=== PATIENT | male | born 1965 | race Two or more races ===

== ENCOUNTER → 2024-03-25 | Outpatient (BNVA) | payer MEDICARE, MEDICAID, SELFPAY | END | disposition home or self-care (01) | PROVIDERS: PCP Family Medicine; Referring Provider Family Medicine; Visit Provider Urology | DX: N40.1 Benign prostatic hyperplasia with lower urinary tract symptoms (principal); N13.8 Other obstructive and reflux uropathy; Z80.42 Family history of malignant neoplasm of prostate; R97.20 Elevated prostate specific antigen [PSA]; N40.2 Nodular prostate without lower urinary tract symptoms; E11.9 Type 2 diabetes mellitus without complications; I10 Essential (primary) hypertension; E66.9 Obesity, unspecified; Z68.31 Body mass index [BMI] 31.0-31.9, adult; E78.00 Pure hypercholesterolemia, unspecified; K21.9 Gastro-esophageal reflux disease without esophagitis | CPT/HCPCS: 81003; 87086; 99212; G0463 ==

== ENCOUNTER → 2024-04-12 | Outpatient (BNVA) | payer MEDICARE, MEDICAID, SELFPAY | END | disposition home or self-care (01) | PROVIDERS: PCP Family Medicine; Referring Provider Family Medicine; Visit Provider Urology | DX: N42.89 Other specified disorders of prostate (principal); N40.1 Benign prostatic hyperplasia with lower urinary tract symptoms; N13.8 Other obstructive and reflux uropathy; Z80.42 Family history of malignant neoplasm of prostate; I10 Essential (primary) hypertension; E78.00 Pure hypercholesterolemia, unspecified; E11.9 Type 2 diabetes mellitus without complications; K21.9 Gastro-esophageal reflux disease without esophagitis | CPT/HCPCS: 55700; 76872; 76942; 81003; 96372; 99213; A4649; J1580; J3490; A9270; G0463 ==

== ENCOUNTER → 2024-05-20 | Outpatient (BNVA) | payer MEDICARE, MEDICAID, SELFPAY | END | disposition home or self-care (01) | PROVIDERS: PCP Family Medicine; Referring Provider Family Medicine; Visit Provider Urology | DX: N40.1 Benign prostatic hyperplasia with lower urinary tract symptoms (principal); R39.12 Poor urinary stream; R39.198 Other difficulties with micturition; Z53.29 Procedure and treatment not carried out because of patient's decision for other reasons; I10 Essential (primary) hypertension; E78.00 Pure hypercholesterolemia, unspecified; K21.9 Gastro-esophageal reflux disease without esophagitis; E11.9 Type 2 diabetes mellitus without complications | CPT/HCPCS: 99212; G0463 ==

== ENCOUNTER → 2024-06-10 | Outpatient (BNVA) | payer MEDICARE, MEDICAID, SELFPAY | END | disposition home or self-care (01) | PROVIDERS: PCP Family Medicine; Referring Provider Family Medicine; Visit Provider Urology | DX: N40.1 Benign prostatic hyperplasia with lower urinary tract symptoms (principal); R39.12 Poor urinary stream; R39.198 Other difficulties with micturition; Z53.8 Procedure and treatment not carried out for other reasons; E11.9 Type 2 diabetes mellitus without complications; K21.9 Gastro-esophageal reflux disease without esophagitis; I10 Essential (primary) hypertension | CPT/HCPCS: 99212; G0463 ==

== ENCOUNTER → 2024-07-29 | Outpatient (BNVA) | payer MEDICARE, MEDICAID, SELFPAY | END | disposition home or self-care (01) | PROVIDERS: PCP Family Medicine; Referring Provider Family Medicine; Visit Provider Urology | DX: N40.1 Benign prostatic hyperplasia with lower urinary tract symptoms (principal); R39.12 Poor urinary stream; I10 Essential (primary) hypertension; E78.00 Pure hypercholesterolemia, unspecified; E11.9 Type 2 diabetes mellitus without complications; K21.9 Gastro-esophageal reflux disease without esophagitis | CPT/HCPCS: 51741; 51798 ==

== ENCOUNTER 2024-12-26 17:05 | Inpatient (IN) | payer MEDICARE, MEDICAID, SELFPAY ==
[2024-12-26 17:10] VITALS: BP 131/104; PULSE 92; RESP 19; TEMP 36.5; BMI 30.1
[2024-12-26 17:30] VITALS: PULSE 96; RESP 18; O2SAT 96
--- NOTE | 2024-12-26 17:36 | XR_ITS ---
Examination: AP chest single view TECHNIQUE: AP portable upright chest single view Date and time: December 26, 2024 1846 hours, comparison June 24, 2019 INDICATIONS:: Stroke alert today onset focal neurologic deficit ataxia FINDINGS: Mild prominence left ventricle. No aspiration pneumonia. Pleural disease along the right lateral thoracic wall slightly more prominent compared to the prior study No pulmonary edema. IMPRESSION: Negative for aspiration pneumonia
--- NOTE | 2024-12-26 17:36 | XR_ITS ---
Examination: CT brain head without contrast. 2-D sagittal coronal reconstructions Date and time of exam:December 26, 2024, 1743 hours INDICATIONS: Stroke alert, altered mental status, ataxia beginning one hour ago CTDI: vol (mGy):54.1 DLP: (mGycm):1042 Technique: Multiple CT axial sections of the brain have been obtained, 5 mm slice thickness. Contrast has not been administered. 2-D sagittal, coronal reconstructions have been obtained Low dose protocols were performed. One or more of the following dose reduction techniques were used; automated exposure control, adjustment of the mA and/or KV according to patient size, use of iterative reconstruction technique. Findings: No significant ventricular enlargement. Intra-axial or extra-axial hemorrhage density is not seen. No mass effect or midline shift Basal cisterns are not remarkable. Fourth ventricle is midline. Cranial vault intact. Impression: Negative for acute hemorrhage, mass effect or midline shift
--- NOTE | 2024-12-26 17:36 | EKG_ITS ---
[facility] Test Date: 2024-12-26 Pat Name: LISA SEALS Department: Room: - Gender: Male Graphic Illustrator: : 1965 Requested By: Deangelo Hutchison Order Number: [id number] Reading MD: Deangelo Hutchison Measurements Intervals [place] Rate: 79 P: 39 SD: 240 QRS: -21 QRSD: 81 T: 21 QT: 403 QTc: 463 Interpretive Statements SINUS RHYTHM WITH FIRST DEGREE AV BLOCK BORDERLINE LEFT AXIS DEVIATION [QRS AXIS < -20] MINIMAL VOLTAGE CRITERIA FOR LVH, CONSIDER NORMAL VARIANT [MEETS CRITERIA IN ONE OF: R(aVL), S(V1), R(V5), R(V5/V6)+S(V1)] No previous ECG available for comparison /store/S0/[id number].pdf
--- NOTE | 2024-12-26 17:40 | XR_ITS ---
Examination: CT chest with intravenous contrast CT abdomen with intravenous contrast CT pelvis with intravenous contrast 2-D coronal and sagittal reconstructions Time of exam: December 26, 2024, 1805 hours INDICATIONS: Left flank and left lower rib pain today, stroke alert patient with onset focal neurologic deficit TECHNIQUE:: Multiple axial images chest abdomen pelvis 3.0 mm slice thickness 2-D sagittal and coronal reconstructions, intravenous administration 60 cc Isovue-370 Low-dose protocols, automated exposure control, adjustment and a KB according to patient's in size FINDINGS: Thoracic aorta and pulmonary arteries intact Heavy calcification left main and left anterior descending coronary artery. Trace pericardial effusion No paratracheal tracheobronchial or bronchopulmonary adenopathy No pneumothorax. No pneumonia, pulmonary edema or pleural disease Sternal segments are intact No thoracic or lumbar fracture or sacral fracture Grade 1 spondylolisthesis L5 on S1 Clavicles appear intact Old fracture left eighth rib No liver or splenic lesion Absent gallbladder No extrahepatic biliary tract dilatation Atrophic pancreas Normal adrenal glands. Bilateral perinephric stranding, no renal or ureteral calculi, no hydronephrosis Aorta normal size. No bowel obstruction. The appendix is fluid-filled and thickened, for instance axial images 247 measuring 8 mm by without definite periappendiceal inflammatory change, no pericecal inflammatory change No bowel obstruction No diverticulitis Normal seminal vesicles. No significant prostatomegaly Contracted urinary bladder Bones of the pelvis and hips intact Impression: Heavy calcification left main and left anterior descending coronary artery. No pneumonia, pulmonary edema or pleural disease Subacute or old fracture left eighth rib. Absent gallbladder No extrahepatic biliary tract dilatation. Bilateral perinephric stranding, consider urinary tract infection Appendix is fluid-filled and thickened but no definite inflammatory change, the appearance should be clinically correlated.
[2024-12-26 17:49] VITALS: BP 89/55; PULSE 88; RESP 16; RESP 95; TEMP 36.8; O2SAT 95; BMI 30.2
[2024-12-26] MEDS: SODIUM CHLORIDE 0.9% 1000 ML 1,000 ML 999 ML IV (17:50)
[2024-12-26 17:59] LABS: Basophils # (Auto) 0.1 Thou/mm3 (0.0-0.2); Basophils % (Auto) 1 % (0-2.5); Eosinophils # (Auto) 0.1 Thou/mm3 (0.0-0.5); Eosinophils % (Auto) 1 % (0-10); Hematocrit 43.5 % (41.0-53.0); Hemoglobin 14.3 g/dL (13.5-16.0); Immature Granulocytes Auto 0.06 Thou/mm3 (0.00-0.00); Lymphocytes # (Auto) 2.6 Thou/mm3 (1.0-4.8); Lymphocytes % (Auto) 15 % (10-50); Mean Corpuscular HGB Conc 32.9 g/dl (31.0-37.0); Mean Corpuscular Hemoglobin 31.0 pg (25.0-35.0); Mean Corpuscular Volume 94 fL (80-100); Monocytes # (Auto) 1.4 Thou/mm3 (0.0-0.8); Monocytes % (Auto) 8 % (0-12); Neutrophils # (Auto) 12.7 Thou/mm3 (1.8-7.7); Neutrophils % (Auto) 75 % (37-80); Nucleated Red Blood Cell # 0.00 Thou/mm3 (0.00-0.00); Nucleated Red Blood Cell % 0 /100 WBC (0); Platelet Count 360 Thou/mm3 (140-440); RDW Standard Deviation 45.1 fL (35.1-43.9); Red Blood Count 4.61 Miln/mm3 (4.50-5.90); White Blood Count 16.9 Thou/mm3 (3.8-10.6)
--- NOTE | 2024-12-26 18:01 | EDRME_ITS ---
Rapid Medical Screening Exam RME Arrival date/time: 12/26/24 17:05 Chief Complaint: Altered Mental Status Time Seen by Provider: 12/26/24 17:36 Vital signs: Vital Signs Temperature 97.7 F 12/26/24 17:10 Pulse Rate 92 12/26/24 17:10 Respiratory Rate 19 12/26/24 17:10 Blood Pressure 131/104 H 12/26/24 17:10 Oxygen Delivery Method Room Air 12/26/24 17:10 RME Narrative: 59 year old male with history of diabetes presents to the ED BIBA from home for evaluation of altered mental status today. Per medics, on scene reported patient was last known well yesterday morning and since yesterday had been acting weird . Additionally reported today while walking patient had complained of feeling very fatigued. Per medics, on scene the patient was found sitting, GCS of 14 and slow to respond though able to answer questions. Stroke assessment negative and BS 277. Medics state once placed in the ambulance with oxygen and the air conditioner, patient improved to a GCS of 15. Patient presented to the ED awake, alert, talking, and able to walk. Was taken to the restroom and per CLOTH BLEACHING SUPERVISOR, at 17:28 hours, the patient began leaning to the right with a right-sided gaze, was confused, and generally weak. Patient was unable to maintain his own weight while transferring from wheelchair to gurney. Patient was immediately taken to CT.
--- NOTE | 2024-12-26 18:15 | PD.EDADDENDU ---
Emergency Room Addendum Addendum Narrative: 1800: Care assumed from Dr. Lewis, the previous shift emergency physician. Past medical, surgical, social and family history reviewed. Vitals and home medications reviewed. Results and treatment plan discussed. I will assume the care of the patient at this time and will follow the patient, pending work-up. Please refer to the emergency department record for history and examination from initial visit. RADIOLOGY RESULTS:
[2024-12-26 18:20] LABS: INR 1.0 (0.9-1.3); Prothrombin Time 10.9 Seconds (9.0-12.2)
--- NOTE | 2024-12-26 18:20 | EDNOTE_ITS ---
Altered Mental Status RME/HPI General Chief Complaint: Altered Mental Status Stated Complaint: ALTERED Time Seen by Provider: 12/26/24 17:36 Arrival date/time: 12/26/24 17:05 RME / HPI RME / HPI narrative: 59 year old male with history of diabetes presents to the ED BIBA from home for evaluation of altered mental status today. Per medics, on scene reported patient was last known well yesterday morning and since yesterday had been acting weird . Additionally reported today while walking patient had complained of feeling very fatigued. Per medics, on scene the patient was found sitting, GCS of 14 and slow to respond though able to answer questions. Stroke assessment negative and BS 277. Medics state once placed in the ambulance with oxygen and the air conditioner, patient improved to a GCS of 15. Patient presented to the E D awake, alert, talking, and able to walk. Was taken to the restroom and per RAKING MACHINE OPERATOR, at 17:28 hours, the patient began leaning to the right with a right-sided gaze, was confused, and generally weak. Patient was unable to maintain his own weight while transferring from wheelchair to gurney. Patient was immediately taken to CT. Dr. Campoverde?s Main ED Evaluation: 59yo male with a history of DM BIBA from home presents to the ED for a chief complaint of AMS. 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 Patient states he felt dizzy and generally weak. Patient is a former drinker, reporting he quit 1-2 years ago. Patient notes my left side hurts after he fell last Friday. Denies any other associated symptoms. NKA. Related Data Home Medications ?Medication ?Instructions ?Recorded ?Confirmed benazepril 20 mg tablet 20 mg PO QDAY 08/19/1807/29 insulin detemir U-100 100 unit/mL 80 unit subcut QDAY 08/19/18 07/29/24 (3 mL) subcutaneous pen (Levemir FlexTouch U-100 Insulin) tizanidine 4 mg capsule 4 mg PO TID muscle spasm 07/29/24 buspirone 15 mg tablet 15 mg PO TID 11/22/20 hydrocodone 10 mg-acetaminophen 1 tab PO Q6HR 12/19/21 07/29/24 325 mg tablet Held on 12/19/21. Instructions: Resume on 12/20/21. hold dose today, resume tomorrow 12/21/21 albuterol sulfate 90 mcg/actuation 2 inh inhalation Q6 H 03/25/24 07/29/24 breath activated powder inhaler,sensor gabapentin 100 mg capsule 100 mg PO TID 03/25/2407/29 lisinopril 2.5 mg tablet 2.5 mg PO QDAY 03/25/2407/04 simvastatin 40 mg tablet 40 mg PO QDAY 03/25/2407/29 tamsulosin 0.4 mg capsule 0.8 mg PO QHS 03/25/2407/29 tizanidine 4 mg capsule 4 mg PO Q8H PRN 03/25/24 Previous Rx's ?Medication ?Instructions ?Recorded metoclopramide HCl 10 mg tablet 10 mg PO Q6H PRN abdom inal pain 01/03/24 (Reglan) #20 tabs Allergies Allergy/AdvReac Type Severity Reaction Status Date / Time No Known Allergies Allergy Verified 12/26/24 18:30 Review of Systems Review of Systems Systems Reviewed: All systems reviewed, normal except as documented Past Medical History Past Medical History NEUROLOGIC: Positive Peripheral Neuropathy; Negative Neurological Disorders or Seizures CARDIAC: Positive Hypercholesterolemia and Hypertension; Negative Cardiac Disorders or Congestive Heart Failure RESPIRATORY: Negative Chronic Obstructive Pulmonary Disease (COPD) or Asthma GASTROINTESTINAL: Positive Gastrointestinal Disorders (STOMACH CARCINOID), Gall Bladder Disease and Gastroesophageal Reflux Disease GENITOURINARY: Positive Genitourinary Disorders; Negative Renal Disease MUSCULOSKELETAL: Positive Musculoskeletal Disorders (USES CANE) and Arthritis ENDOCRINE: Positive Endocrine Disorders and Diabetes Mellitus Type 2; Negative Diabetes Mellitus Type 1 HEMATOLOGIC: Negative Blood Disorders or Sickle Cell Disease PSYCHO/SOCIAL: Positive Depression and Anxiety OTHER HISTORY: Negative Autoimmune Disease, Falls, Blood Transfusions, Blood Transfusion Reaction, Anesthesia Reactions or Cancer Family History FAMILY HISTORY: Negative Family Cardiac Disorders Surgical History SURGICAL: Positive Abdominal Surgery (ENDOSCOPIC CARCINOID TUMOR REMOVED) and Joint Replacement (LEFT KNEE, BONE GRAFT FROM LEFT HIP TP LEFT KNEE); Negative Cardiac Surgery Social History SMOKING STATUS: Never smoker ED Exam Narrative Physical exam: Generally patient is alert and oriented but somewhat of a poor historian, eyes pupils equal round reactive to light, heart regular rate and rhythm, lungs clear to auscultation and equal bilaterally, abdomen soft slightly distended no obvious fluid wave nontender, skin is cool pale and dry, neurologic exam Delta Coma Scale of 15 with no focal motor deficits Course Course Course Narrative: CXR is ordered to r/o pneumothorax. Quality Measures none Orders Category Date Time Status Bedside Blood Glucose NOW Care 12/26/24 17:36 Active COVID-19 Screening Questionnaire NOW Care 12/26/24 20:00 Active Fashion Editor NOW Care 12/26/24 17:36 Active Continuous Pulse Oximetry NOW Care 12/26/24 17:36 Completed EKG (ED ONLY) *Do not use* NOW Care 12/26/24 17:36 Completed In and Out Catheter NEEDED Care 12/26/24 17:36 Active Insert IV NOW Care 12/26/24 17:36 Active NIH Stroke Scale now Care 12/26/24 17:36 Active NPO NOW Care 12/26/24 17:36 Active Neuro Check Q30MIN Care 12/26/24 17:37 Active Nurse Swallow Screen x1 Care 12/26/24 17:36 Active Consult to Neurology / Tele-Neurology Routine Cons 12/26/24 17:[address] chest abdomen pelvis w Stat Exams 12/26/24 17:[address] stroke protocol Stat Exams 12/26/24 17:36 Completed EKG (ED Only) Stat Exams 12/26/24 17:36 Draft XR chest 1V portable Stat Exams 12/26/24 17:36 Completed Acetaminophen Stat Lab 12/26/24 17:46 Completed Alcohol, Blood Medical Stat Lab 12/26/24 17:46 Completed Ammonia Stat Lab 12/26/24 17:46 Completed Arterial Blood Gas Stat Lab 12/26/24 17:37 Ordered B-Type Natriuretic Peptide Stat Lab 12/26/24 17:46 Completed CBC Stat Lab 12/26/24 17:46 Completed Comprehensive Metabolic Panel Stat Lab 12/26/24 17:46 Completed Drug Screen,Urine Stat Lab 12/26/24 17:36 Ordered Free T4 (Free Thyroxine) Stat Lab 12/26/24 17:46 Completed Magnesium Stat Lab 12/26/24 17:46 Completed Prothrombin Time with INR Stat Lab 12/26/24 17:46 Completed Salicylate Stat Lab 12/26/24 17:46 Completed Thyroid Stimulating Hormone Stat Lab 12/26/24 17:46 Completed Troponin I Stat Lab 12/26/24 17:46 Completed Urinalysis, C/S if Indicated Stat Lab 12/26/24 17:36 Ordered HYDROcodone/APAP [[place] ] Med 12/26/24 19:44 Discontinued 1 tab PO X1 ONE Sodium Chloride 0.9% 1000 ml [Ns] 1,000 ml Med 12/26/24 18:41 Discontinued IV 999 mls/hr Oxygen Delivery NOW RT 12/26/24 17:36 Active Vital Signs Vital signs: Vital Signs Temperature 97.7 F 12/26/24 17:10 Pulse Rate 92 12/26/24 17:10 Respiratory Rate 19 12/26/24 17:10 Blood Pressure 131/104 H 12/26/24 17:10 Oxygen Delivery Method Room Air 12/26/24 17:10 Altered Mental Status MDM Narrative MDM Narrative:: Scribe Attestation: 12/26/24 - Gale Brunson am scribing for and in the presence of Dr. Campoverde. Patient had a syncopal episode here in the bathroom with blood pressure 70/40. Patient was hydrated with 2 L of IV normal saline which increased the blood pressure 106/64. Head CT was negative. Teleneurology consult was obtained who does not believe this to be a stroke but still recommends to undergo MRI of the brain in the morning. I discussed this case with the hospitalist and the patient will be admitted to the hospital for further treatment and evaluation for his syncope with hypotension. Patient data External records reviewed:: [facility] previous records (Per chart review, patient was seen here on 01/03/24 for abdominal pain.) and EMS form Clinical information provided by:: patient Social determinants that could affect healthcare access:: alcohol use Patient has the following chronic illnesses:: DM, HTN (no longer on medications), HLD How is presenting disease/condition affected by chronic disease/condition?: uneffected by Evaluation data The following diagnostics were reviewed and interpreted by me:: lab results, radiology exam(s) and EKG tracing(s) Lab and/or radiology exams considered but not ordered:: none Interpretation Summary: [facility] Report Signed Patient: LISA SEALS [facility]. Record#: [id number] Birthdate: 1965 Age/Sex: 59 / M Location: [facility] Attending Dr: Ordering Physician: Deangelo Lewis MD Date of Service: 12/26/24 Procedure(s): CT stroke protocol Accession Number(s): [id number] cc: William Zamorano MD; Deangelo Lewis MD~ Examination: CT brain head without contrast. 2-D sagittal coronal reconstructions Date and time of exam:December 26, 2024, 1743 hours INDICATIONS: Stroke alert, altered mental status, ataxia beginning one hour ago CTDI: vol (mGy):54.1 DLP: (mGycm):1042 Technique: Multiple CT axial sections of the brain have been obtained, 5 mm slice thickness. Contrast has not been administered. 2-D sagittal, coronal reconstructions have been obtained Low dose protocols were performed. One or more of the following dose reduction techniques were used; automated exposure control, adjustment of the mA and/or KV according to patient size, use of iterative reconstruction technique. Findings: No significant ventricular enlargement. Intra-axial or extra-axial hemorrhage density is not seen. No mass effect or midline shift Basal cisterns are not remarkable. Fourth ventricle is midline. Cranial vault intact. Impression: Negative for acute hemorrhage, mass effect or midline shift Dictated By: William Zamorano MD Signed By: <Electronically signed by William Zamorano MD in > 12/26/241746 [facility] Report Signed Patient: LIAS VARGAS. Record#: [id number] Birthdate: 1965 Age/Sex: 59 / M Location: [facility] Attending Dr: Ordering Physician: Deangelo Lewis MD Date of Service: 12/26/24 Procedure(s): CT chest abdomen pelvis w Accession Number(s): [id number] cc: William Zamorano MD; Deangelo Lewis MD; Armin Rosario MD~ Examination: CT chest with intravenous contrast CT abdomen with intravenous contrast CT pelvis with intravenous contrast 2-D coronal and sagittal reconstructions Time of exam: December 26, 2024, 1805 hours INDICATIONS: Left flank and left lower rib pain today, stroke alert patient with onset focal neurologic deficit TECHNIQUE:: Multiple axial images chest abdomen pelvis 3.0 mm slice thickness 2-D sagittal and coronal reconstructions, intravenous administration 60 cc Isovue-370 Low-dose protocols, automated exposure control, adjustment and a KB according to patient's in size FINDINGS: Thoracic aorta and pulmonary arteries intact Heavy calcification left main and left anterior descending coronary artery. Trace pericardial effusion No paratracheal tracheobronchial or bronchopulmonary adenopathy No pneumothorax. No pneumonia, pulmonary edema or pleural disease Sternal segments are intact No thoracic or lumbar fracture or sacral fracture Grade 1 spondylolisthesis L5 on S1 Clavicles appear intact Old fracture left eighth rib No liver or splenic lesion Absent gallbladder No extrahepatic biliary tract dilatation Atrophic pancreas Normal adrenal glands. Bilateral perinephric stranding, no renal or ureteral calculi, no hydronephrosis Aorta normal size. No bowel obstruction. The appendix is fluid-filled and thickened, for instance axial images 247 measuring 8 mm by without definite periappendiceal inflammatory change, no pericecal inflammatory change No bowel obstruction No diverticulitis Normal seminal vesicles. No significant prostatomegaly Contracted urinary bladder Bones of the pelvis and hips intact Impression: Heavy calcification left main and left anterior descending coronary artery. No pneumonia, pulmonary edema or pleural disease Subacute or old fracture left eighth rib. Absent gallbladder No extrahepatic biliary tract dilatation. Bilateral perinephric stranding, consider urinary tract infection Appendix is fluid-filled and thickened but no definite inflammatory change, the appearance should be clinically correlated. Dictated By: William Zamorano MD Signed By: <Electronically signed by William Zamorano MD in [place]> 12/26/241851 [facility] Report Signed Patient: LISA VARGAS [facility]. Record#: [id number] Birthdate: 1965 Age/Sex: 59 / M Location: [facility] Attending Dr: Ordering Physician: Deangelo Lewis MD Date of Service: 12/26/24 Procedure(s): XR chest 1V portable Accession Number(s): [id number] cc: William Zamorano MD; Deangelo Lewis MD; Armin Rosario MD~ Examination: AP chest single view TECHNIQUE: AP portable upright chest single view Date and time: December 26, 2024 1846 hours, comparison June 24, 2019 INDICATIONS:: Stroke alert today onset focal neurologic deficit ataxia FINDINGS: Mild prominence left ventricle. No aspiration pneumonia. Pleural disease along the right lateral thoracic wall slightly more prominent compared to the prior study No pulmonary edema. IMPRESSION: Negative for aspiration pneumonia Dictated By: William Zamorano MD Signed By: <Electronically signed by William Zamorano MD in [place]> 12/26/24 1918 Medications / Prescriptions Medications or Prescriptions considered but not ordered:: none Medication administrations:: Medication Administration History Discontinued Medications Hydrocodone Bitart/Acetaminophen (Hydrocodone/Apap 10/325 Tab) 1 tab PO X1 ONE Stop: 12/26/24 19:45 Last Admin: 12/26/24 19:56 Dose: 1 tab Documented By: BD Sodium Chloride (Ns) 1,000 mls @ 999 mls/hr IV .Q1H1M ONE Stop: 12/26/24 19:41 Last Infusion: 12/26/24 18:51 Dose: Infused Documented By: Admin: 12/26/24 17:50 Dose: 999 mls/hr Documented By: GM see above Consultations Consultation(s) initiated? (list below): Yes Diagnosis Differential diagnosis altered mental status: other (See MDM.) Most likely diagnosis given after review of the tests above:: see clinical impression below Admission Indicated Admission indicated?: indicated Admission Request Was there a request for admission?: Yes Admission Attestation Admission request attestation: Discussed case with [] from Hospitalist service regarding admission. Discussed patients ED course, exam findings, labs, and radiology results. The Hospitalist [agrees,declines] to accept the patient for admission. Disposition Plan Disposition Plan: Admit Discharge Plan Plan Patient Disposition: Admit Acute Care w/in Hospital Prescriptions/Referrals Prescriptions/Med Rec: No Action simvastatin 40 mg tablet 40 mg PO QDAY tizanidine 4 mg capsule 4 mg PO Q8H PRN lisinopril 2.5 mg tablet 2.5 mg PO QDAY albuterol sulfate 90 mcg/actuation aero powdr breath act w/sensor 2 inh inhalation Q6H gabapentin 100 mg capsule 100 mg PO TID tamsulosin 0.4 mg capsule 0.8 mg PO QHS tizanidine 4 mg Capsule 4 mg PO TID hydrocodone-acetaminophen 10-325 mg tablet 1 tab PO Q6HR benazepril 20 mg Tablet 20 mg PO QDAY Levemir FlexTouch U100 Insulin 100 unit/mL (3 mL) Insulin Pen 80 unit SUBCUT QDAY buspirone 15 mg Tablet 15 mg PO TID metoclopramide HCl [Reglan] 10 mg tablet 10 mg PO Q6H PRN (Reason: abdominal pain) Qty: 20 0RF Referrals: Armin Rosario MD [Primary Care Provider] - In 1 week Problem List Clinical Impression: Syncope, Hypotension Patient/Caregiver Discharge Instructions Print Language: Belarusian Stand Alone Forms: Catherine Award Info., Patient Portal Info Letter
[2024-12-26 18:24] LABS: B-Type Natriuretic Peptide 28 pg/mL (0-100)
[2024-12-26 18:26] LABS: Ammonia 17 uMol/L (11-32)
[2024-12-26 18:41] LABS: Acetaminophen 3.3 mcg/mL (10.0-20.0); Alanine Aminotransferase 13 U/L (10-49); Albumin, Serum 4.2 gm/dL (3.5-5.0); Albumin/Globulin Ratio 1.2 (1.2-2.2); Alcohol, Blood Medical < 3.0 mg/dL (0-10.0); Alkaline Phosphatase 69 U/L (46-116); Anion Gap 12 (7-16); Aspartate Amino Transferase 19 U/L (0-34); BUN/Creatinine Ratio 8 Ratio (12-20); Bilirubin,Total 0.4 mg/dL (0.3-1.2); Blood Urea Nitrogen 16 mg/dL (9-23); Calcium 9.6 mg/dL (8.3-10.6); Calcium (Corrected) 9.6 mg/dL (8.5-10.1); Carbon Dioxide 20.5 mMol/L (20.0-31.0); Chloride 104 mMol/L (98-107); Creatinine (Component) 1.9 mg/dL (0.6-1.3); Estimated Creatinine Clearance 47.1 mL/min (>60); Free T4 (Free Thyroxine) 1.38 ng/dL (0.89-1.76); Globulin 3.4 gm/dL (2.3-3.5); Glucose 276 mg/dL (74-106); Magnesium 1.9 mg/dL (1.6-2.6); Osmolality,Calculated 283 (275-295); Potassium 4.8 mMol/L (3.4-5.1); Salicylate < 3.0 mg/dL; Sodium 136 mMol/L (136-145); Thyroid Stimulating Hormone 3.01 uIU/mL (0.55-4.78); Total Protein 7.6 gm/dL (5.7-8.2); Troponin I < 0.020 ng/mL (0.0-0.045); eGFR 40 See Note
[2024-12-26 18:44] VITALS: BP 118/73; PULSE 80; RESP 18; TEMP 36.7; O2SAT 95
--- NOTE | 2024-12-26 18:48 | ESCONSULT_ITS ---
Tele Neuro Consultation Consultation Date 12/26/24 Most Recent Vital Signs Last Vital Signs Temp 98.1 F 12/26/24 18:44 Pulse 80 12/26/24 18:44 Resp 18 12/26/24 18:44 BP 118/73 12/26/24 18:44 Pulse Ox 95 12/26/24 18:44 O2 Del Method Room Air 12/26/24 18:44 Laboratory-Coagulation Panel PT 10.9 Seconds (9.0-12.2) 12/26/24 17:46 INR 1.0 (0.9-1.3) 12/26/24 17:46 Consultation Narrative [facility] Tele[facility]rology Consult [facility] Patient Name:???LISA SEALS Date of :???1965 Identification Number:??? 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 ?For the past month has been having issues with basically fatigue laying in bed when he gets up he feels lightheaded off balance. ?He actually had a fall on Friday and probably cracked his ribs. ?This problem continues to happen and today when he tried to walk he's knees buckled. ?Has been also on and off confused. He had some diarrhea 2 days ago but they resolved. ?CT of the head was negative for acute finding. ?When patient initially presented to the ER he was lucid and cooperative however when he went to the bathroom he became leaning toward the right side and maybe had a syncopal episode. His blood pressure was in the 70 range systolic he was given IV fluid bolus and he felt better. ?When I saw him he was awake alert oriented x 4 he has no focal deficit he has occasional myoclonus in different extremities. ? ?Overall I think this problem is chronic at this point not acute and does not warrant acute stroke intervention I have low suspicion for stroke I suspect that he probably is dehydrated or have issues with orthostatic hypotension however stroke is not ruled out but not acute. ?Would continue to do toxic metabolic workup monitor blood pressure goal for normotension. ?Check brain MRI with and without contrast when able to. ?CBC electrolytes, UA, UDS, alcohol level, ammonia, B12, folic acid, free T4, TSH and other metabolic workup as per primary team. ?Check orthostatic vitals. ?PT, OT, speech. ?DVT prophylaxis per primary team choice. ?Neurology to follow. ?Thank you for the consult Our recommendations are outlined below. Recommendations: ? Stroke/Telemetry Floor ? Neuro Checks ? Bedside Swallow Eval ? DVT Prophylaxis ? IV Fluids, Normal Saline ? Head of Bed 30 Degrees ? Euglycemia and Avoid Hyperthermia (PRN Acetaminophen) Sign Out: ? Discussed with Emergency Department Provider ? Discussed with Rapid Response Team Advanced Imaging: Advanced Imaging Deferred because: Does not meet criteria due to being out of the 24-hour window for thrombectomy Metrics: Last Known Well: Unknown Dispatch Time: 12/26/2024 17:35:15 Arrival Time: 12/26/2024 17:05:00 Initial Response Time: 12/26/2024 17:40:59Symptoms: confusion, off balance. . Initial patient interaction: 12/26/2024 17:45:00 NIHSS Assessment Completed: 12/26/2024 17:48:00Patient is not a candidate for Thrombolytic. Thrombolytic Medical Decision: 12/26/2024 17:47:00Patient was not deemed candidate for Thrombolytic because of following reasons: LKW outside 4.[address] Head: CT head unremarkable for acute infarction or hemorrhage per Radiology: no acute findings. I personally reviewed all the CT images that were available to me and it showed: no acute findings. Primary Provider Notified of Diagnostic Impression and Management Plan on: 18:39:48 History of Present Illness:Patient is a 59 year old Male. Patient was brought by EMS for symptoms of confusion, off balance. . 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 For the past month has been having issues with basically fatigue laying in bed when he gets up he feels lightheaded off balance. He actually had a fall on Friday and probably cracked his ribs. This problem continues to happen and today when he tried to walk he's knees buckled. Has been also on and off confused. He had some diarrhea 2 days ago but they resolved. CT of the head was negative for acute finding. When patient initially presented to the ER he was lucid and cooperative however when he went to the bathroom he became leaning toward the right side and maybe had a syncopal episode. His blood pressure was in the 70 range systolic he was given IV fluid bolus and he felt better. When I saw him he was awake alert oriented x 4 he has no focal deficit he has occasional myoclonus in different extremities. Past Medical History: ?Hypertension ?Diabetes Mellitus ?There is no history of Atrial Fibrillation ?There is no history of Stroke ?There is no history of Seizures Medications: No Anticoagulant use? No Antiplatelet use Reviewed EMR for current medications Allergies:? Reviewed Social History: Alcohol Use: Former Family History: There is no family history of premature cerebrovascular disease pertinent to this consultation ROS : 14 Points Review of Systems was performed and was negative except mentioned in HPI. Past Surgical History: There Is No Surgical History Contributory To Today?s Visit Examination: BP(118/73),?Pulse(80), 1A: Level of Consciousness - Alert; keenly responsive?+ 0 1B: Ask Month and Age - Both Questions Right?+ 0 1C: Blink Eyes & Squeeze Hands - Performs Both Tasks?+ 0 2: Test Horizontal Extraocular Movements - Normal?+ 0 3: Test Visual Cooper - No Visual Loss?+ 0 4: Test Facial Palsy (Use Grimace if Obtunded) - Normal symmetry?+ 0 5A: Test Left Arm Motor Drift - No Drift for 10 Seconds?+ 0 5B: Test Right Arm Motor Drift - No Drift for 10 Seconds?+ 0 6A: Test Left Leg Motor Drift - No Drift for 5 Seconds?+ 0 6B: Test Right Leg Motor Drift - No Drift for 5 Seconds?+ 0 7: Test Limb Ataxia (FNF/Heel-Marie) - No Ataxia?+ 0 8: Test Sensation - Normal; No sensory loss?+ 0 9: Test Language/Aphasia - Normal; No aphasia?+ 0 10: Test Dysarthria - Normal?+ 0 11: Test Extinction/Inattention - No abnormality?+ 0 NIHSS Score:?0 Pre-Morbid Modified [address] Scale:3 Points = Moderate disability; requiring some help, but able to walk without assistance Spoke with :?ER provider. This consult was conducted in real time using interactive audio and video technology. Patient was informed of the technology being used for this visit and agreed to proceed. Patient located in hospital and provider located at home/office setting. Patient is being evaluated for possible acute neurologic impairment and high probability of imminent or life-threatening deterioration. I spent total of 60 minutes providing care to this patient, including time for face to face visit via telemedicine, review of medical records, imaging studies and discussion of findings with providers, the patient and/or family. Dr Liseth Chase [facility] For Inpatient follow-up with [facility] physician please call [facility] at . As we are not an outpatient service for any post hospital discharge needs please contact the hospital for assistance. If you have any questions for the [facility] physicians or need to reconsult for clinical or diagnostic changes please contact us via [facility] at . Signature :Jose Chase
--- NOTE | 2024-12-26 19:35 | PC.NURSE ---
notified that pt complaining 02/11 verbal order 2mg morphine iv push
--- NOTE | 2024-12-26 19:36 | PC.NURSE ---
pt refused morphine wants norco
[2024-12-26 20:27] LABS: Collection Type, Urine Catheter
[2024-12-26 20:37] LABS: Bilirubin,Urine Negative (Negative); Blood,Urine Negative (Negative); Clarity,Urine Clear (Clear/Hazy); Color,Urine Yellow (Lt Yel-Yel); Culture Indicated,Urine Not Indicated; Glucose, Urine Trace (Negative); Hyaline Casts,Urine 2 /hpf (0-1); Ketones,Urine Negative (Negative); Leukocyte Esterase,Urine Negative (Negative); Nitrite,Urine Negative (Negative); PH,Urine 6.0 (5.0-7.0); Protein,Urine 1+ (Neg - Trace); RBC,Urine 14 /hpf (0-3); Squamous Epithelial Cell,Urine < 1 /hpf (0-5); Urobilinogen,Urine 2.0 mg/dL (0.0-1.0); WBC,Urine 2 /hpf (0-5)
[2024-12-26 20:42] LABS: Amphetamine/Methamp Scrn,U Negative (Negative); Barbiturate Screen,Urine Negative (Negative); Benzodiazepines Screen,Urine Negative (Negative); Benzoylecgonine Screen, Ur Negative (Negative); Fentanyl Screen,Urine Negative (Negative); Opiate Screen,Urine Positive (Negative); THC Screen,Urine Negative (Negative)
[2024-12-26 20:48] LABS: Specific Gravity,Urine 1.015 (1.001-1.035)
--- NOTE | 2024-12-26 21:07 | ECHO_ITS ---
Transthoracic Echo Report Ht (in): 69 Wt (lb): 204 Exam Location: Echo Lab Status: Emergency Line Runner: Kamala Pino Indications: Procedure Performed: BP: 117 / 74 HR: 97 MEASUREMENTS (Male / Female) Normal Values 2D ECHO LV Diastolic Diameter PLAX 5.1 cm 4.2 - 5.9 / 3.9 - 5.3 cm LV Systolic Diameter PLAX 3.7 cm IVS Diastolic Thickness 1.3 cm 0.6 - 1.0 / 0.6 - 0.9 cm LVPW Diastolic Thickness 1.2 cm 0.6 - 1.0 / 0.6 - 0.9 cm LV Relative Wall Thickness 0.5 LVOT Diameter 1.9 cm LA Volume Index 27.3 cm?/m? 16 - 28 cm?/m? Ascending Aorta Diameter 2.7 cm M-MODE AV Cusp Separation MM 2.3 cm DOPPLER AV Peak Velocity 152.0 cm/s AV Peak Gradient 9.2 mmHg AV Mean Gradient 5.0 mmHg AV Velocity Time Integral 26.9 cm LVOT Peak Velocity 106.0 cm/s LVOT Peak Gradient 4.5 mmHg LVOT Velocity Time Integral 18.9 cm LVOT Cardiac Index 2421.0 cm?/min?m? AV Area Cont Eq vti 2.0 cm? AV Area Cont Eq pk 2.0 cm? MV Area PHT 5.0 cm? Mitral E Point Velocity 117.0 cm/s LV E' Lateral Velocity 8.9 cm/s Mitral E to LV E' Lateral Ratio 13.1 TR Peak Velocity 166.0 cm/s TR Peak Gradient 11.0 mmHg PV Peak Velocity 122.0 cm/s PV Peak Gradient 6.0 mmHg FINDINGS Left Ventricle Normal left ventricular size, wall thickness, systolic function with no obvious regional wall motion abnormalities. Indeterminated LV diastolic function. The ejection fraction is visually estimated at 55-60%. Right Ventricle The right ventricle is normal in size and systolic function. Left Atrium The left atrial cavity size is mildly increased. Right Atrium The right atrium is normal by two-dimensional imaging, color flow and Doppler imaging with no structural abnormalities, no thrombus formation present. Atrial Septum The interatrial septum appears normal with no evidence of a shunt. Aorta The aorta is normal by two-dimensional, color flow and Doppler interrogation. Mitral Valve The mitral valve is normal by two-dimensional, color flow and Doppler interrogation. There is no significant mitral valve regurgitation, stenosis or prolapse. Aortic Valve The aortic valve is trileaflet and normal by two-dimensional, color flow and Doppler interrogation. There is no significant aortic valve regurgitation. Tricuspid Valve The tricuspid valve is normal by two-dimensional, color flow and Doppler interrogation.there is trace tricuspid valve regurgitation. Pulmonic Valve The pulmonic valve is not well visualized. There is no significant pulmonic valve regurgitation. Vessels The pulmonary artery appears normal. The inferior vena cava pulmonary and hepatic veins appear normal. Pericardium There is a small pericardial effusion without cardiac tamponade. CONCLUSIONS Indication: Syncope/orthostatic hypotension Normal left ventricular size and function. Approximate ejection fraction is 55- 60%. Indeterminate LV diastolic function Normal RV size and function. Normal RVSP Mild aortic valve sclerosis without stenosis. Trace TR and MR. Trace to small pericardial effusion without any evidence of cardiac tamponade. Mikael Carrillo (Electronically Signed) Final Date: 27 December 2024 19:08
--- NOTE | 2024-12-26 21:11 | XR_ITS ---
Examination: Thoracolumbar spine 2 views TECHNIQUE: AP lateral thoracolumbar spine 2 views Date and time: December 26, 2024 2136 hours INDICATIONS: Patient fell today with injury to the back, back pain. FINDINGS: No visualized thoracic or lumbar fracture Mild thoracic spondylosis Mild diffuse vertebral body narrowing IMPRESSION: No vertebral body fracture noted
[2024-12-26] MEDS: HYDROmorphone INJ 2 MG/ML VIAL 1 MG IVP (21:45)
[2024-12-26] MEDS: SODIUM CHLORIDE 0.9% 1000 ML 1,000 ML 100 ML IV (21:45)
[2024-12-26 21:50] VITALS: BP 105/65; BP 108/73; PULSE 88
--- NOTE | 2024-12-26 22:02 | PC.NURSE ---
CALLED DR. VASQUEZ PT GLUCOSE [phone] NO COVERAGE AT THIS TIME VERBAL ORDER 5 UNITS OF LISPRO X1
[2024-12-26 22:11] LABS: Folate 20.85 ng/mL (>5.38); Vitamin B12 484 pg/mL (211-911)
[2024-12-26] MEDS: INSULIN LISPRO (AdmeLOG) 1 UNIT/0.01 ML UNIT 5 UNIT SC (22:39)
--- NOTE | 2024-12-26 22:45 | PC.NURSE ---
ATTEMPTED TO CALL REPORT NURSE NOT AVAILABLE
--- NOTE | 2024-12-26 23:57 | ESHP_ITS ---
Documentation for date of: 12/26/24 [facility] History of Present Illness Chief complaint: Dizziness/confusion/fall History of present illness: 59-year-old male with a history of diabetes mellitus, hypertension (recently taken off BP meds by PCP for low pressures), chronic neuropathy (uses cane), prior carcinoid tumor resection, BPH, remote alcoholism (quit 2 years ago), and prior spinal fusion, who presents with a month of progressive fatigue, dizziness with standing, confusion, and recent falls. One week ago, he sustained a fall at home and has had persistent rib and back pain since. Today in the ED, while attempting to use the restroom, he became diaphoretic and briefly lost consciousness; SBP documented in the 70s. He improved after 2L IV fluids to 106/63. He endorses dizziness primarily when standing, intermittent confusion earlier today, and a brief visual disturbance (?seeing double nurses?). Denies chest pain (except localized rib pain with cough/sneeze), palpitations, shortness of breath, fevers, or dysuria. Reports alternating constipation and diarrhea, most recently diarrhea 2 days ago. Teleneurology evaluated and felt this was metabolic encephalopathy likely due to orthostatic hypotension/dehydration, not acute stroke. MRI brain w/wo recommended. ROS * General: Fatigue, weakness, fluctuating weight. No fevers or night sweats. * Neuro: Confusion episodes, dizziness, tremor/shaking for ~1 month, visual disturbance once. No focal weakness, numbness, or speech difficulty. * CV: No palpitations, no exertional chest pain. * Resp: No cough, no SOB. * GI: Alternating constipation/diarrhea, rib/back pain after fall. No melena/hematemesis. * : No dysuria or hematuria. * MSK: Chronic back pain, rib pain since fall. * Psych: No hallucinations, denies depression/anxiety beyond baseline. PMH * Diabetes mellitus * Hypertension (recently taken off meds by PCP) * BPH * Chronic neuropathy * Carcinoid tumor of stomach s/p resection * Chronic back disease s/p spinal fusion * Remote alcoholism (abstinent ~2 years) PSH: * Carcinoid tumor resection * Back fusion surgery * Leg surgery FH: * Mother: cancer (succumbed) * Father: renal failure (succumbed) * No premature CAD or strokes in siblings SH: * Lives in [place] with , who assists with care * Retired, previously independent, now largely bedbound x1 month * Former alcohol use, quit ~2 years ago * Denies smoking or recreational drug use Allergies * NKDA Medications: * Pending medication reconciliation Exam Vital Signs Temp Pulse Resp BP Pulse Ox O2 Del Method 98.1 F 88 18 108/73 95 Room Air 12/26/24 18:44 12/26/24 21:50 12/26/24 18:44 12/26/24 21:50 12/26/24 18:44 12/26/24 18:44 Narrative Exam General: Alert, oriented ?3, appears fatigued. HEENT: No icterus, dry mucous membranes. Neck: No JVD, no bruits. CV: RRR, no murmurs. Resp: Clear to auscultation bilaterally, normal effort. Chest: Left lateral rib tenderness without crepitus. Abdomen: Soft, nondistended, no rebound/guarding. No hepatosplenomegaly. Extremities: No edema, pulses 2+. Neuro: AAOx3, CN II?XII intact, no focal deficits, NIHSS = 0. Occasional mild tremor/myoclonus noted. Strength 5/5, sensation intact. MSK: Limited by rib/back pain. Skin: Warm, dry, no jaundice. Results: Labs 12/26/24 17:46 12/26/24 17:46 Labs: Short CBC 12/26/24 Range/Units 17:46 WBC 16.9 H (3.8-10.6) Thou/mm3 Hgb 14.3 (13.5-16.0) g/dL Hct 43.5 (41.0-53.0) % Plt Count 360 (140-440) Thou/mm3 BMP 12/26/24 17:46 Sodium 136 Potassium 4.8 Chloride 104 Carbon Dioxide 20.5 BUN 16 Creatinine 1.9 H Glucose 276 H Calcium 9.6 Cardiac Enzymes 12/26/24 Range/Units 17:46 Troponin I < 0.020 (0.0-0.045) ng/mL Liver Function 12/26/24 Range/Units 17:46 Total Bilirubin 0.4 (0.3-1.2) mg/dL AST 19 (0-34) U/L ALT 13 (10-49) U/L Alkaline Phosphatase 69 (46-116) U/L Albumin 4.2 (3.5-5.0) gm/dL Urine 12/26/24 Range/Units 20:11 Urine Color Yellow (Lt Yel-Yel) Urine Clarity Clear (Clear/Hazy) Urine pH 6.0 (5.0-7.0) Ur Specific [place] 1.015 (1.001-1.035) Urine Protein 1+ A (Neg - Trace) Urine Glucose (UA) Trace (Negative) Quality Measures Quality Measures VTE prophylaxis Medications Home Medications and Allergies Home Medications ?Medication ?Instructions ?Recorded ?Confirmed ?Type benazepril 20 mg tablet 20 mg PO QDAY 08/19/1807/29 History insulin detemir U-100 100 unit/mL 80 unit subcut QDAY 08/19/18 07/29/24 History (3 mL) subcutaneous pen (Levemir FlexTouch U-100 Insulin) tizanidine 4 mg capsule 4 mg PO TID muscle spasm 07/29/24 History buspirone 15 mg tablet 15 mg PO TID 11/22/20 History hydrocodone 10 mg-acetaminophen 1 tab PO Q6HR 12/19/21 07/29/24 History 325 mg tablet Held on 12/19/21. Instructions: Resume on 12/20/21. hold dose today, resume tomorrow 12/21/21 albuterol sulfate 90 mcg/actuation 2 inh inhalation Q6 H 03/25/24 07/29/24 History breath activated powder inhaler,sensor gabapentin 100 mg capsule 100 mg PO TID 03/25/2407/29 History lisinopril 2.5 mg tablet 2.5 mg PO QDAY 03/25/2407/04 History simvastatin 40 mg tablet 40 mg PO QDAY 03/25/2407/29 History tamsulosin 0.4 mg capsule 0.8 mg PO QHS 03/25/2407/29 History tizanidine 4 mg capsule 4 mg PO Q8H PRN 03/25/24 History Allergies Allergy/AdvReac Type Severity Reaction Status Date / Time No Known Allergies Allergy Verified 12/26/24 18:30 Visit Medications Acetaminophen (Acetaminophen 325 Mg Tablet) 650 mg PO Q6H PRN PRN Reason: Fever >100.4 and pain 1-3 Stop: 01/25/25 20:59 Hydrocodone Bitart/Acetaminophen (Hydrocodone/Apap 5/325 Tablet) 1 tab PO Q4HR PRN PRN Reason: PAIN SCALE 4-6 (Moderate Stop: 12/31/24 21:04 Dextrose (Dextrose 50%-Water Inj 50 Ml Syringe) 25 ml IV Q15MIN PRN PRN Reason: BG 50-70 responsive npo pt Stop: 01/25/25 21:14 Dextrose (Dextrose 50%-Water Inj 50 Ml Syringe) 50 ml IV Q15MIN PRN PRN Reason: BG <50 OR BG <70 & pt unresponsive Stop: 01/25/25 21:14 Glucagon (Glucagon Inj 1 Mg Vial) 1 mg IM Q15MIN PRN PRN Reason: BG <70, and no IV access Heparin Sodium (Porcine) (Heparin Sod Inj 5000 Unit/Ml Vial) 5,000 unit SC Q12HR YOBANI Stop: 01/10/25 08:59 Hydromorphone HCl (Hydromorphone Inj 2 Mg/Ml Vial) 1 mg IVP Q4HR PRN PRN Reason: Pain 7-10 Stop: 12/31/24 21:04 Last Admin: 12/26/24 21:45 Dose: 1 mg Sodium Chloride (Ns) 1,000 mls @ 100 mls/hr IV .Q10H YOBANI Stop: 01/25/25 20:59 Last Admin: 12/26/24 21:45 Dose: 100 mls/hr Insulin Human Lispro (Insulin Lispro (Admelog) 1 Unit/0.01 Ml Unit) 0 unit SC AC YOBANI; Protocol Stop: 01/26/25 07:29 Lactulose (Lactulose Syrup 20 Gm/30 Ml Udc) 10 gm PO QDAY YOBANI; Protocol Stop: 01/26/25 08:59 Lidocaine (Lidocaine 5% 1 Patch) 1 patch TOP UD PRN PRN Reason: PAIN Stop: 01/25/25 21:10 Pantoprazole Sodium (Pantoprazole Inj 40 Mg Vial) 40 mg IVP QDAY YOBANI Stop: 01/26/25 08:59 Sennosides (Senna Tablet) 1 tab PO QDAY PRN; Protocol PRN Reason: constipation Stop: 01/25/25 20:59 Discontinued Medications Hydrocodone Bitart/Acetaminophen (Hydrocodone/Apap 10/325 Tab) 1 tab PO X1 ONE Stop: 12/26/24 19:45 Last Admin: 12/26/24 19:56 Dose: 1 tab Sodium Chloride (Ns) 1,000 mls @ 999 mls/hr IV .Q1H1M ONE Stop: 12/26/24 19:41 Last Infusion: 12/26/24 18:51 Dose: Infused Insulin Human Lispro (Insulin Lispro (Admelog) 1 Unit/0.01 Ml Unit) 5 unit SC X1 ONE Stop: 12/26/24 22:04 Last Admin: 12/26/24 22:39 Dose: 5 unit Sennosides (Senna Tablet) 1 tab PO QDAY PRN; Protocol PRN Reason: constipation Stop: 01/25/25 20:59 Sennosides (Senna Tablet) 1 tab PO QDAY PRN; Protocol PRN Reason: constipation Stop: 01/25/25 20:59 Assessment & Plan Plan 59M with DM, HTN (recently off meds), neuropathy, remote EtOH use, prior carcinoid resection, presenting with syncope, hypotension, confusion, and recent fall. Neuro exam normal, labs notable for SHABBIR, hyperglycemia, WBC 16.9, rib fracture, perinephric stranding. Likely multifactorial orthostatic hypotension/metabolic encephalopathy. # Syncope/Orthostatic Hypotension Likely orthostatic hypotension given standing dizziness, hypotensive episode in ED, improved with fluids. Plan: * Admit to telemetry * Orthostatic vitals now and daily * IV NS @ 100 mL/hr, adjust per volume status * Hold antihypertensives (per patient, PCP already discontinued) * PT/OT evaluation for mobility/fall risk # Metabolic Encephalopathy Confusion earlier today; now lucid but fluctuating. Likely multifactorial (orthostasis, dehydration, meds). Plan: * MRI brain w/wo (per teleneuro) * Avoid sedating meds * Bedside swallow eval * B12, folate pending # SHABBIR on CKD? Likely prerenal from poor PO intake/dehydration. Baseline Cr 1.2 --> 1.9 Plan: * IV fluids as above * Avoid nephrotoxins * Trend daily BMP * Strict I/O # Rib Pain, Left 8th Rib Fracture # Back Pain From fall last week, pain with cough/sneeze. Thoracic & lumbar spine X-ray negative. Plan: * Pain control with [place] and morphine # Diabetes Mellitus Hyperglycemia 276. Insulin regimen unclear, med rec pending. Plan: * Initiate SSI * Check A1C * Monitor glucose ACHS # BPH On tamsulosin but held due to hypotension. Plan: * Hold tamsulosin for now * Consider bladder scan PRN for retention # Hyperlipidemia Plan: * Continue simvastatin once med rec's are up * Lipid panel in a.m. # Chronic Neuropathy/Back Pain Patient reports chronic neuropathy and back pain, normally takes gabapentin and tizanidine. Requested tizanidine while inpatient; declined at this time given risk of worsening hypotension, sedation, and encephalopathy. Plan: * Hold tizanidine and gabapentin * Pain: norco, morphine and lidocaine patch * Avoid excess opioids Health Maintenance Disposition: Admit to telemetry Diet: Regular, carb-consistent DVT prophylaxis: Heparin SQ Q12H GI prophylaxis: Protonix Code Status: Full Code ----- Plan discussed with attending physician Dr. Lindsay Novoa MD PGY-1 Internal Medicine Attending Provider Attestation/Addendum I have examined the patient, reviewed labs and imaging findings, discussed the case with the resident(s), and reviewed entered orders. I agree with the plan of care as outlined in this note, with these additional summaries/recommendations: After examination of the patient and review of the clinical data, I feel that this patient needs admission to the hospital for further treatment and evaluation. Patient is a 59-year-old male with a medical history of CLBP status post multiple back surgeries on chronic [place], insulin-dependent diabetes mellitus type 2, neuropathy, diabetic nephropathy, chronic constipation, previous hypertension, carcinoid tumor status post resection, and BPH presents to [facility] emergency department on 12/26/2024 with AMS and syncope. Patient seen at bedside. Earlier while in the emergency room patient was taken to the bathroom by TECHNICAL ACCOUNT MANAGER and had a presyncopal/syncopal episode. Stroke alert was called and patient was seen by teleneurology. Low suspicion for CVA at this time and no need for aspirin or statin. Teleneurology still recommends MRI brain which was ordered although symptoms much more likely related to syncope. Unclear etiology for patient's episodes of presyncope/syncope. He does report he has been weaned off his antihypertensives for low blood pressure. Etiology likely related to orthostatic postural hypotension versus reflex syncope (vasovagal) versus least likely cardiac. Order orthostatic vital signs, monitor on telemetry, and obtain echocardiogram. 2 L fluid bolus ordered. Consult physical therapy. TSH WNL. Patient reports she had a ground-level fall on Friday and has had left-sided chest pain since. CT of chest reveals subacute fracture left eighth rib. Continue pain management. Patient does endorse chronic back pain slightly worse than baseline. He reports 2 spinal fusions in the past. Order thoracic and lumbar x-rays. Okay to resume home [place] for now. Leukocytosis noted on chemistry panel. No evidence of infection at this time. CT abdomen and pelvis did reveal some perinephric fat stranding although urinalysis within normal limits. We will defer antibiotics for now and repeat hematology panel in AM. Patient does have underlying diabetic nephropathy. On admission creatinine 1.9 and BUN 16. Unclear if patient has SHABBIR on CKD or advancement of his CKD at this time. Patient would benefit from MARGARET or ARB to prevent worsening proteinuria although likely not a candidate at this time given unstable hemodynamics. Start insulin sliding scale for diabetes mellitus type 2 with Accu-Cheks. Target blood sugar of 140-180 while hospitalized. Order A1c. Patient does not appear to be taking Flomax anymore for his BPH although awaiting final medication reconciliation. Patient updated on the plan and in agreement. All questions answered to satisfaction. Please see residents note for additional details and management. Dr. Lindsay MD
[2024-12-27] VITALS (9 sets, daily range): BP systolic 106–193; BP diastolic 74–109; PULSE 78–109; RESP 13–30; TEMP 36.6–36.9; O2SAT 95–98; BMI 29.3
[2024-12-27] MEDS: HYDROmorphone INJ 2 MG/ML VIAL 1 MG IVP ×2 (01:51→05:58)
[2024-12-27] MEDS: HYDROcodone/APAP 5/325 TABLET 1 TAB PO ×5 (04:14→21:30)
[2024-12-27 06:12] LABS: Basophils # (Auto) 0.1 Thou/mm3 (0.0-0.2); Basophils % (Auto) 1 % (0-2.5); Eosinophils # (Auto) 0.1 Thou/mm3 (0.0-0.5); Eosinophils % (Auto) 1 % (0-10); Hematocrit 38.2 % (41.0-53.0); Hemoglobin 13.1 g/dL (13.5-16.0); Immature Granulocytes Auto 0.05 Thou/mm3 (0.00-0.00); Lymphocytes # (Auto) 2.8 Thou/mm3 (1.0-4.8); Lymphocytes % (Auto) 20 % (10-50); Mean Corpuscular HGB Conc 34.3 g/dl (31.0-37.0); Mean Corpuscular Hemoglobin 32.5 pg (25.0-35.0); Mean Corpuscular Volume 95 fL (80-100); Monocytes # (Auto) 1.5 Thou/mm3 (0.0-0.8); Monocytes % (Auto) 11 % (0-12); Neutrophils # (Auto) 9.5 Thou/mm3 (1.8-7.7); Neutrophils % (Auto) 67 % (37-80); Nucleated Red Blood Cell # 0.00 Thou/mm3 (0.00-0.00); Nucleated Red Blood Cell % 0 /100 WBC (0); Platelet Count 308 Thou/mm3 (140-440); RDW Standard Deviation 45.1 fL (35.1-43.9); Red Blood Count 4.03 Miln/mm3 (4.50-5.90); White Blood Count 14.1 Thou/mm3 (3.8-10.6)
[2024-12-27 06:40] LABS: Alanine Aminotransferase 24 U/L (10-49); Albumin, Serum 3.7 gm/dL (3.5-5.0); Albumin/Globulin Ratio 1.5 (1.2-2.2); Alkaline Phosphatase 67 U/L (46-116); Anion Gap 12 (7-16); Aspartate Amino Transferase 45 U/L (0-34); BUN/Creatinine Ratio 11 Ratio (12-20); Bilirubin,Total 0.3 mg/dL (0.3-1.2); Blood Urea Nitrogen 16 mg/dL (9-23); Calcium 9.0 mg/dL (8.3-10.6); Calcium (Corrected) 9.2 mg/dL (8.5-10.1); Carbon Dioxide 17.7 mMol/L (20.0-31.0); Cardiac Risk Estimate 4.0 RATIO (4.0-6.7); Chloride 105 mMol/L (98-107); Cholesterol 116 mg/dL (132-200); Creatinine (Component) 1.5 mg/dL (0.6-1.3); Estimated Creatinine Clearance 58.8 mL/min (>60); Globulin 2.5 gm/dL (2.3-3.5); Glucose 187 mg/dL (74-106); HDL Cholesterol 29 mg/dL (40-60); LDL Cholesterol,Calculated 49 mg/dL (0-130); Magnesium 1.9 mg/dL (1.6-2.6); Osmolality,Calculated 276 (275-295); Phosphorous 4.5 mg/dL (2.4-5.1); Potassium 4.4 mMol/L (3.4-5.1); Sodium 135 mMol/L (136-145); Total Protein 6.2 gm/dL (5.7-8.2); Triglycerides 188 mg/dL (30-150); eGFR 53 See Note
[2024-12-27 06:58] LABS: Glucose Estimated Average 200 mg/dL (80-131); Hemoglobin A1C 8.6 % Hgb (4.8-6.0)
[2024-12-27] MEDS: INSULIN LISPRO (AdmeLOG) 1 UNIT/0.01 ML UNIT SC ×3 (07:52→16:46)
[2024-12-27] MEDS: LACTULOSE SYRUP 20 GM/30 ML UDC 10 GM PO (08:55)
[2024-12-27] MEDS: SODIUM CHLORIDE 0.9% 1000 ML 1,000 ML 100 ML IV ×2 (08:55→19:55)
[2024-12-27] MEDS: GABAPENTIN 100 MG CAPSULE PO ×3 (08:56→21:31)
[2024-12-27] MEDS: HEPARIN SOD INJ 5000 UNIT/ML VIAL SC ×2 (08:56→20:48)
--- NOTE | 2024-12-27 11:24 | PC.SS ---
Patient is alert/oriented. Patient was able to verify demographics. Patient was admitted for hypotension/AMS. Patient hx: diabetes. Patient uses a glucometer machine to check his sugars. He has chronic neuropathy and uses a cane. Patient states he recently fell at home. He uses a hearing aid. He states he's independent with ADL's. Patient resides with his , Brittany. PCP: Dr. Rosario. Last appt. was last month. Pharmacy: [facility]. Discharge plan is to return home. Alt medical decision maker: , Brittany, transportation: private vehicle/family
--- NOTE | 2024-12-27 11:35 | ESPR_ITS ---
<Statement entered by Rafat Daly MD - 12/27/24 16:33> Patient was seen and examined at bedside. Patient was conscious oriented x 3, he reported that he came because of multiple episodes of fall. He reported feeling dizzy. He reported that he was trying to use his cane however somehow he placed it inappropriately and fell down to the ground. Denied any loss of consciousness however he reported mild chest pain. Imaging showed fracture on one of the rib. Nondisplaced with no internal bleed. Orthostatic vitals were positive for drop of [address] scan was negative. But pending MRI, echo. - Patient's plan and care discussed with my attending, Dr. shraddha Daly MD Internal Medicine PGY-3 Documentation for date of: 12/27/24 Subjective Subjective Interval history: Patient examined bedside. Had trouble explaining chronologically his story from admission. States he had one week of dizziness with low blood pressure 70s systolic, he was on anti-hypertensive medication but he recently discontinued it because his doctor said his BP was too low. States he fell 2 Fridays ago and this most recent Friday, but was unclear if he had slipped or if it was due to dizziness. He states that Friday he woke up and felt dizziness, but did not lose consciousness. And that his called an ambulance because he was acting weird but patient does not think he was acting weird at all. During the interview he asked multiple times for pain medication. There was a person listening outside the room door, when the interviewer asked who it was and what they were doing they responded listening in . The patient stated that it was his , but the person claimed to be his daughter in law, to which the patient agreed. He states that he does not drink water, but mainly 7up soda during the day. 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 He denied stomach pain and endorsed only chronic back pain. denied SOB, chest pain, hemoptysis, LOC, palpitations, visual changes. Not once did patient ask about the status of his daughter who is also inpatient in the facility. Nurses called the interviewer stating the patient has requested pain medication every 30 minutes since admission. The patient states to be in 11/10 pain but was in no distress. When asked 4x if the patient remembers falling due to dizziness was the reason for admission he stated clearly each time that he did not recall falling or being dizzy. It was then explained we have to have conserved pain management to measure his mentation, lest maybe he stumble and fall again or cannot perform an interview, patient then states he remembers falling perfectly well and his dizziness that brought him in. When asked if he recalls denying that 4x within the last 2 minutes he denied remembering the conversation took place. Exam Vital Signs Temp Pulse Resp BP Pulse Ox O2 Del Method 98.3 F 100 15 142/87 H 98 Room Air 12/27/24 08:00 12/27/24 11:13 12/27/24 08:00 12/27/24 11:13 12/27/24 08:00 12/27/24 08:00 Narrative Exam General: Alert, oriented ?3, NAD, at times superficial and dramatic HEENT: No icterus, dry mucous membranes. Neck: No JVD, no bruits. CV: RRR, no murmurs. Resp: Clear to auscultation bilaterally, normal effort. Chest: Left lateral rib tenderness without crepitus. Abdomen: Soft, nondistended, no rebound/guarding. No hepatosplenomegaly. Extremities: No edema, pulses 2+. Neuro: AAOx3, CN II?XII intact, no focal deficits, NIHSS = 0. Occasional mild tremor/myoclonus noted. Strength 5/5, sensation intact. MSK: Limited by rib/back pain. Skin: Warm, dry, no jaundice. Psy: Neuropsychiatric agitation Objective Labs 12/27/24 04:25 12/27/24 04:25 Labs: Laboratory Results - last 24 hr 12/26/24 12/26/24 12/27/24 17:46 20:11 04:25 WBC 16.9 H 14.1 H RBC 4.61 4.03 L Hgb 14.3 13.1 L Hct 43.5 38.2 L MCV 94 95 MCH 31.0 32.5 MCHC 32.9 34.3 RDW Std Deviation 45.1 H 45.1 H Plt Count 360 308 D Neut % (Auto) 75 67 Lymph % (Auto) 15 20 [place] % (Auto) 8 11 Eos % (Auto) 1 1 Baso % (Auto) 1 1 Neut # (Auto) 12.7 H 9.5 H Lymph # (Auto) 2.6 2.8 [place] # (Auto) 1.4 H 1.5 H Eos # (Auto) 0.1 0.1 Baso # (Auto) 0.1 0.1 Immature Gran # (Auto) 0.06 H 0.05 H Absolute Nucleated RBC 0.00 0.00 Immature Gran % 0 0 Nucleated RBC % 0 0 PT 10.9 INR 1.0 Sodium 136 135 L Potassium 4.8 4.4 Chloride 104 105 Carbon Dioxide 20.5 17.7 L Anion Gap 12 12 BUN 16 16 Creatinine 1.9 H 1.5 H Estim Creat Clear Calc 47.1 L 58.8 L eGFR 40 L 53 L BUN/Creatinine Ratio 8 L 11 L Glucose [address] Glu mg/dL 200 H Hemoglobin A1c 8.6 H Calculated Osmolality 283 276 Calcium 9.6 9.0 Corrected Calcium 9.6 9.2 Phosphorus 4.5 Magnesium 1.9 1.9 Total Bilirubin 0.4 0.3 AST 19 45 H ALT 13 24 Alkaline Phosphatase 69 67 Ammonia 17 Troponin I < 0.020 B-Natriuretic Peptide 28 Total Protein 7.6 6.2 Albumin 4.2 3.7 D Globulin 3.4 2.5 Albumin/Globulin Ratio 1.2 1.5 Triglycerides 188 H Cholesterol 116 L LDL Cholesterol, Calc 49 HDL Cholesterol 29 L Cholesterol/HDL Ratio 4.0 Vitamin B12 484 Folate 20.85 TSH 3.01 Free T4 1.38 Ur Collection Type Catheter Urine Color Yellow Urine Clarity Clear Urine pH 6.0 Ur Specific [place] 1.015 Urine Protein 1+ A Urine Glucose (UA) Trace Urine Ketones Negative Urine Blood Negative Urine Nitrite Negative Urine Bilirubin Negative Urine Urobilinogen (Auto) 2.0 Ur Leukocyte Esterase Negative Urine RBC 14 H Urine WBC 2 Ur Squamous Epith Cells < 1 Urine Bacteria None Hyaline Casts 2 H Ur Culture Indicated? Not Indicated Salicylates < 3.0 Urine Opiates Screen Positive A Urine Fentanyl Screen Negative Acetaminophen 3.3 L Ur Barbiturates Screen Negative U Amphetamin/Meth Scrn Negative U Benzodiazepines Scrn Negative U Cocaine Metab Screen Negative U Marijuana (THC) Screen Negative Ethyl Alcohol < 3.0 Quality Measures Quality Measures VTE prophylaxis Assessment & Plan Assessment Current Active Medications: Generic Name Dose Route Start Last Admin Trade Name Freq PRN Reason Stop Dose Admin Acetaminophen 650 mg 12/26/24 21:00 Acetaminophen 325 Mg Tablet PO 01/25/25 20:59 Q6H PRN Fever >100.4 and pain 1-3 Hydrocodone Bitart/Acetaminophen 1 tab 12/26/24 21:05 12/27/24 08:56 Hydrocodone/Apap 5/325 Tablet PO 12/31/24 21:04 1 tab Q4HR PRN Administration PAIN SCALE 4-6 (Moderate Atorvastatin Calcium 20 mg 12/27/24 21:00 Atorvastatin Calcium 20 Mg Tablet PO 01/26/25 20:59 HS YOBANI Dextrose 25 ml 12/26/24 21:15 Dextrose 50%-Water Inj 50 Ml Syringe IV 01/25/25 21:14 Q15MIN PRN BG 50-70 responsive npo pt Dextrose 50 ml 12/26/24 21:15 Dextrose 50%-Water Inj 50 Ml Syringe IV 01/25/25 21:14 Q15MIN PRN BG <50 OR BG <70 & pt unresponsive Gabapentin 100 mg 12/27/24 08:15 12/27/24 08:56 Gabapentin 100 Mg Capsule PO 01/26/25 08:14 100 mg TID YOBANI Administration Glucagon 1 mg 12/26/24 21:15 Glucagon Inj 1 Mg Vial IM Q15MIN PRN BG <70, and no IV access Heparin Sodium (Porcine) 5,000 unit 12/27/24 09:00 12/27/24 08:56 Heparin Sod Inj 5000 Unit/Ml Vial SC 01/10/25 08:59 5,000 unit Q12HR YOBANI Administration Sodium Chloride 1,000 mls @ 100 mls/hr 12/26/24 21:00 12/27/24 08:55 Ns IV 01/25/25 20:59 100 mls/hr .Q10H YOBANI Administration Insulin Human Lispro 0 unit 12/27/24 07:30 12/27/24 07:52 Insulin Lispro (Admelog) 1 Unit/0.01 Ml Unit SC 01/26/25 07:29 1 unit AC YOBANI Administration Protocol Lactulose 10 gm 12/27/24 09:00 12/27/24 08:55 Lactulose Syrup 20 Gm/30 Ml Udc PO 01/26/25 08:59 10 gm QDAY YOBANI Administration Protocol Lidocaine 1 patch 12/26/24 21:11 Lidocaine 5% 1 Patch TOP 01/25/25 21:10 UD PRN PAIN Protocol Pantoprazole Sodium 40 mg 08/25/25 09:00 12/27/24 08:56 Pantoprazole Inj 40 Mg Vial IVP 01/26/25 08:59 40 mg QDAY YOBANI Administration Sennosides 1 tab 12/26/24 21:43 Senna Tablet PO 01/25/25 20:59 QDAY PRN constipation Protocol Tamsulosin HCl 0.8 mg 12/27/24 21:00 Tamsulosin Hcl 0.4 Mg Capsule PO 01/26/25 20:59 HS YOBANI Plan 59M with DM, HTN (recently off meds), neuropathy, remote EtOH use, prior carcinoid resection, presenting with syncope, hypotension, confusion, and recent fall. Neuro exam normal, labs notable for SHABBIR, hyperglycemia, WBC 16.9, rib fracture, perinephric stranding. Likely multifactorial orthostatic hypotension/metabolic encephalopathy, most likely due to autonomic disfunction due to uncontrolled diabetes combined with overuse of opiates in addition of tizandine #Syncope/Orthostatic Hypotension #Medication adverse effect tizanidine Likely orthostatic hypotension given standing dizziness, hypotensive episode in ED, improved with fluids. Patient reports drinking minimal water, and only sodas, and recently stopped taking his anti-hypertensive medications because his blood pressure is too low. Orthostatic vitals were done and were positive for orthostatic hypotension, however patient denies feeling any symptoms such as dizziness, light headedness, loss of consciousness, loss of balance. Underlying etiology could be due to uncontrolled diabetes (A1C:8.6, blood glucose:331) causing autonomic disregulation between blood pressure and cardiac function resulting in orthostatic hypotension. Or due to a2 agonists affect of tizandine. Plan: * Admit to telemetry * Orthostatic vitals now and daily * IV NS @ 100 mL/hr, adjust per volume status * Nifedpine 30mg PO QD - for HTN (Hold if BP <100/60) * PT/OT evaluation for mobility/fall risk * A1C: 8.6 * Consider abdominal binder or stockings # Metabolic Encephalopathy #c/f Opioid intoxication with cognitive impairment Confusion earlier today; now lucid but fluctuating. Utox positive for opiates. Likely multifactorial (orthostasis, dehydration, meds). He was unreliable, superficial and dramatic in his narration of events and appeared to duplicitly change his narrative while requesting pain medications. Normal ammonia levels. Plan: * MRI brain w/wo (per teleneuro) * Avoid sedating meds * Bedside swallow eval * B12, folate pending * lactulose 10 g PO QD # SHABBIR on CKD? Likely prerenal from poor PO intake/dehydration. Baseline Cr 1.2 --> 1.9 --> 1.5 now on NS and fluids Plan: * IV fluids as above * Avoid nephrotoxins * Trend daily BMP * Strict I/O # Rib Pain, Left 8th Rib Fracture # Back Pain From fall last week, pain with cough/sneeze. Thoracic & lumbar spine X-ray negative. Plan: * Pain control with [place] and lidocaine patch * Gabapentin 100mg PO TID # Diabetes Mellitus Hyperglycemia 276. Insulin regimen unclear, med rec pending. Plan: * Initiate SSI * Check A1C * Monitor glucose ACHS # BPH On tamsulosin but held due to hypotension. Plan: * Hold tamsulosin for now * Consider bladder scan PRN for retention # Hyperlipidemia Plan: * Atorvastatin 20mg PO HS * Lipid panel: Triglycerides:188, cholesterol:116, LDL:49, HDL:29 # Chronic Neuropathy/Back Pain Patient reports chronic neuropathy and back pain, normally takes gabapentin and tizanidine. Requested tizanidine while inpatient; declined at this time given risk of worsening hypotension, sedation, and encephalopathy. Plan: * Continue tizanidine and gabapentin * Pain: norco, and lidocaine patch * Avoid excess opioids Health Maintenance Disposition: Admit to telemetry Diet: Regular, carb-consistent DVT prophylaxis: Heparin SQ Q12H GI prophylaxis: Protonix Code Status: Full Code ----- Plan discussed with attending physician Dr. Shraddha Gallo MD PGY-1 Internal Medicine Attending Provider Attestation/Addendum I have discussed and was present for the essential components of the history, physical examination, diagnosis, and treatment plan with the resident. I agree with the patient's care as documented by the resident and amended herein by me. Osvaldo Llanes DO. Although this document has been carefully reviewed, there may still be some phonetic and other typographical errors. These errors are purely grammatical due to imperfections in the software program and should not be construed in any way to compromise the substance of the patient's medical care during this visit.
[2024-12-27] MEDS: LIDOCAINE 5% 1 PATCH TOP (12:35)
--- NOTE | 2024-12-27 14:32 | PC.PT ---
PT eval only. Patient was xI with bed mobility, transfers, and ambulation using a FWW which is his baseline. Patient is safe to ambulate to the bathroom and in the halls with a FWW and 1 staff for safety due to his orthostatic hypotension. RN made aware.
--- NOTE | 2024-12-27 15:06 | PC.SS ---
follow up note: PT called to recommend o/p PT. Patient prefers [facility] and will follow up here. Patient declined HH services. Possible d/c within 24 hours
[2024-12-27] MEDS: NIFEdipine XL 30 MG TABCR PO (17:12)
--- NOTE | 2024-12-27 19:44 | PC.NURSE ---
DR. MALDONADO NOTIFIED OF PT'S PAIN ON BACK 02/11, PT STATED NORCO AND LIDOCAINE PATCH IS INEFFECTIVE, NEW ORDER RECEIVED.
[2024-12-27] MEDS: HYDROmorphone INJ 2 MG/ML VIAL 0.5 MG IVP (19:54)
[2024-12-27] MEDS: ATORVASTATIN CALCIUM 20 MG TABLET PO (20:48)
[2024-12-27] MEDS: TAMSULOSIN HCL 0.4 MG CAPSULE 0.8 MG PO (20:48)
[2024-12-28] VITALS (8 sets, daily range): BP systolic 91–144; BP diastolic 58–87; PULSE 70–102; RESP 12–21; TEMP 36.1–36.8; O2SAT 94–98
--- NOTE | 2024-12-28 | XR_ITS ---
Examination: MRI of brain without intravenous contrast. MRI brain with intravenous contrast. Date and time of exam:December 28, 2024 1447 hours, comparison November 25, 2022. INDICATIONS: Syncope diaphoresis dizziness this week Technique: Multiple axial and sagittal images of the brain to been obtained. Siemens high-resolution 1.52 Rosita short bore scanner utilized. Sagittal sections, T1 weighted images, TR 500, TE 14, are performed. Axial sections proton-density and T2-weighted images have been obtained. Inversion recovery axial images, TR 9260, TE 111, TR 2500. Diffusion weighted images, axial sections, TR 4800, TE 128, B value 1000. Axial sections, ADC map, TR 4800, TE 128. Axial and coronal images were also obtained post 18 cc gadolinium administered intravenously. Findings:: Enlargement of the sella turcica is not present. The optic chiasm and infundibular stalk are not remarkable. There is no localized enlargement of the medulla or jamshid. Fourth ventricle and cerebellar tonsils appear normal in position. No subacute area of hemorrhage density is seen. Fourth ventricle is midline. Mass in the cerebellopontine angle region is not evident. 7th and 8th nerve complexes exhibit symmetry Globes are symmetrical Orbital musculature including medial lateral rectus muscles do not exhibit abnormality Increased white matter signal is evident multiple punctate foci increased signal in the white matter Effacement of the cortical sulcal markings is not identified. Mass effect upon the ventricular system is not identified. Diffusion-weighted images demonstrate no focus of restricted diffusion Contrast images demonstrate no abnormal contrast enhancement Impression: Negative for acute hemorrhage mass effect or midline shift No acute infarct Multiple punctate foci increased signal in the cerebral white matter, differential would include demyelinating disease, accelerated chronic microvascular white matter change
[2024-12-28] MEDS: HYDROcodone/APAP 5/325 TABLET 1 TAB PO ×4 (01:31→17:07)
[2024-12-28] MEDS: GABAPENTIN 100 MG CAPSULE PO ×3 (05:43→21:36)
[2024-12-28] MEDS: SODIUM CHLORIDE 0.9% 1000 ML 1,000 ML 100 ML IV ×2 (05:46→17:08)
[2024-12-28 06:24] LABS: Alanine Aminotransferase 20 U/L (10-49); Albumin, Serum 3.9 gm/dL (3.5-5.0); Albumin/Globulin Ratio 1.7 (1.2-2.2); Alkaline Phosphatase 76 U/L (46-116); Anion Gap 10 (7-16); Aspartate Amino Transferase 15 U/L (0-34); BUN/Creatinine Ratio 20 Ratio (12-20); Bilirubin,Total 0.3 mg/dL (0.3-1.2); Blood Urea Nitrogen 22 mg/dL (9-23); Calcium 9.0 mg/dL (8.3-10.6); Calcium (Corrected) 9.1 mg/dL (8.5-10.1); Carbon Dioxide 20.7 mMol/L (20.0-31.0); Chloride 104 mMol/L (98-107); Creatinine (Component) 1.1 mg/dL (0.6-1.3); Estimated Creatinine Clearance 80.2 mL/min (>60); Globulin 2.3 gm/dL (2.3-3.5); Glucose 261 mg/dL (74-106); Magnesium 1.8 mg/dL (1.6-2.6); Osmolality,Calculated 282 (275-295); Phosphorous 2.8 mg/dL (2.4-5.1); Potassium 4.4 mMol/L (3.4-5.1); Sodium 135 mMol/L (136-145); Total Protein 6.2 gm/dL (5.7-8.2); eGFR > 60 See Note
[2024-12-28] MEDS: INSULIN LISPRO (AdmeLOG) 1 UNIT/0.01 ML UNIT SC ×3 (07:32→17:11)
[2024-12-28] MEDS: LACTULOSE SYRUP 20 GM/30 ML UDC 10 GM PO (08:16)
[2024-12-28] MEDS: Magnesium Sulfate 4 GM Ivpb 4 GM/50 ML BAG IV (08:17)
[2024-12-28] MEDS: HEPARIN SOD INJ 5000 UNIT/ML VIAL SC ×2 (08:17→21:34)
[2024-12-28] MEDS: INSULIN DEGLUDEC 5 UNIT/0.05 ML (PER 5 UNITS) 10 UNIT SC (08:17)
[2024-12-28] MEDS: NIFEdipine XL 30 MG TABCR PO (08:18)
[2024-12-28 11:04] LABS: Basophils # (Auto) 0.1 Thou/mm3 (0.0-0.2); Basophils % (Auto) 1 % (0-2.5); Eosinophils # (Auto) 0.2 Thou/mm3 (0.0-0.5); Eosinophils % (Auto) 2 % (0-10); Hematocrit 36.3 % (41.0-53.0); Hemoglobin 12.2 g/dL (13.5-16.0); Immature Granulocytes Auto 0.03 Thou/mm3 (0.00-0.00); Lymphocytes # (Auto) 2.3 Thou/mm3 (1.0-4.8); Lymphocytes % (Auto) 25 % (10-50); Mean Corpuscular HGB Conc 33.6 g/dl (31.0-37.0); Mean Corpuscular Hemoglobin 32.0 pg (25.0-35.0); Mean Corpuscular Volume 95 fL (80-100); Monocytes # (Auto) 0.9 Thou/mm3 (0.0-0.8); Monocytes % (Auto) 10 % (0-12); Neutrophils # (Auto) 5.7 Thou/mm3 (1.8-7.7); Neutrophils % (Auto) 63 % (37-80); Nucleated Red Blood Cell # 0.00 Thou/mm3 (0.00-0.00); Nucleated Red Blood Cell % 0 /100 WBC (0); Platelet Count 320 Thou/mm3 (140-440); RDW Standard Deviation 45.4 fL (35.1-43.9); Red Blood Count 3.81 Miln/mm3 (4.50-5.90); White Blood Count 9.1 Thou/mm3 (3.8-10.6)
[2024-12-28] MEDS: SODIUM CHLORIDE 0.9% 1000 ML 1,000 ML 999 ML IV (11:06)
[2024-12-28] MEDS: INSULIN LISPRO (AdmeLOG) 1 UNIT/0.01 ML UNIT 2 UNIT SC ×2 (11:45→17:12)
--- NOTE | 2024-12-28 14:41 | ESPR_ITS ---
<Statement entered by Yvonne Plunkett MD - 12/28/24 19:56> I have reviewed the note and agree with the resident's assessment & plan with exceptions as below. I have personally reviewed labs, imaging, home meds/prior records, examined the patient, formulated and discussed management plan with the IM team. Patient examined at bedside today. No acute overnight events. Patient to get MRI today, requesting benzodiazepine at this time for concern with claustrophobia. Patient was positive orthostatic vitals, there is concern for autonomic dysfunction, however patient will benefit from tilt table testing done outpatient. Will give patient additional fluid as patient patient did seem intravascularly depleted and would benefit with additional fluid at this time. Once patient has had 1 set of orthostatic vitals that have improved or normalized, we will medically discharge the patient, although this may not happen if patient truly does have autonomic dysfunction. Repeat hematology and chemistry in the a.m. Yvonne Plunkett, PGY-2 Internal Medicine Documentation for date of: 12/28/24 Subjective Subjective Interval history: Examined bedside refusing to go in to the MRI unless given pain medicine immediately despite his scheduled dose being in the next 45 mins. He demanded benzodiazepines and was only agreeable to do the MRI once a small amount of Valium was ordered. However due to this prolonged event with nursing staff, he missed his schedule MRI time and was not wheeled in until 15:00 when the original MRI was supposed to be done at 8:00AM. 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 Has no reported dizziness, loss of consciousness or confusion. Orthostatic vitals + but no symptoms. Exam Vital Signs Temp Pulse Resp BP Pulse Ox O2 Del Method 98.1 F 85 12 120/66 94 L Room Air 12/28/24 12:00 12/28/24 13:19 12/28/24 12:00 12/28/24 13:19 12/28/24 12:00 12/28/24 12:00 Narrative Exam General: Alert, oriented ?3, NAD, at times superficial and dramatic HEENT: No icterus, dry mucous membranes. Neck: No JVD, no bruits. CV: RRR, no murmurs. Resp: Clear to auscultation bilaterally, normal effort. Chest: Left lateral rib tenderness without crepitus. Abdomen: Soft, nondistended, no rebound/guarding, NBS. No hepatosplenomegaly. Extremities: No edema, pulses 2+. Neuro: AAOx3, CN II?XII intact, no focal deficits, NIHSS = 0. Occasional mild tremor/myoclonus noted. Strength 5/5, sensation intact. MSK: Limited by rib/back pain. Skin: Warm, dry, no jaundice. Psy: Neuropsychiatric agitation Objective Labs 12/28/24 05:08 12/29/24 04:33 Labs: Laboratory Results - last 24 hr 12/28/24 05:08 WBC 9.1 D RBC 3.81 L Hgb 12.2 L Hct 36.3 L MCV 95 MCH 32.0 MCHC 33.6 RDW Std Deviation 45.4 H Plt Count 320 Neut % (Auto) 63 Lymph % (Auto) 25 [place] % (Auto) 10 Eos % (Auto) 2 Baso % (Auto) 1 Neut # (Auto) 5.7 Lymph # (Auto) 2.3 [place] # (Auto) 0.9 H Eos # (Auto) 0.2 Baso # (Auto) 0.1 Immature Gran # (Auto) 0.03 H Absolute Nucleated RBC 0.00 Immature Gran % 0 Nucleated RBC % 0 Sodium 135 L Potassium 4.4 Chloride 104 Carbon Dioxide 20.7 Anion Gap 10 BUN 22 Creatinine 1.1 Estim Creat Clear Calc 80.2 eGFR > 60 BUN/Creatinine Ratio 20 Glucose 261 H D Calculated Osmolality 282 Calcium 9.0 Corrected Calcium 9.1 Phosphorus 2.8 Magnesium 1.8 Total Bilirubin 0.3 AST 15 ALT 20 Alkaline Phosphatase 76 Total Protein 6.2 Albumin 3.9 Globulin 2.3 Albumin/Globulin Ratio 1.7 Quality Measures Quality Measures VTE prophylaxis Assessment & Plan Assessment Current Active Medications: Generic Name Dose Route Start Last Admin Trade Name Freq PRN Reason Stop Dose Admin Acetaminophen 650 mg 12/26/24 21:00 Acetaminophen 325 Mg Tablet PO 01/25/25 20:59 Q6H PRN Fever >100.4 and pain 1-3 Hydrocodone Bitart/Acetaminophen 1 tab 12/28/24 10:27 Hydrocodone/Apap 5/325 Tablet PO 12/31/24 21:04 Q6HR PRN PAIN SCALE 4-6 (Moderate Atorvastatin Calcium 20 mg 12/27/24 21:00 12/27/24 20:48 Atorvastatin Calcium 20 Mg Tablet PO 01/26/25 20:59 20 mg HS YOBANI Administration Buspirone HCl 15 mg 12/28/24 07:30 12/28/24 14:26 Buspirone Hcl 5 Mg Tablet PO 01/27/25 07:29 15 mg TID YOBANI Administration Dextrose 25 ml 12/26/24 21:15 Dextrose 50%-Water Inj 50 Ml Syringe IV 01/25/25 21:14 Q15MIN PRN BG 50-70 responsive npo pt Dextrose 50 ml 12/26/24 21:15 Dextrose 50%-Water Inj 50 Ml Syringe IV 01/25/25 21:14 Q15MIN PRN BG <50 OR BG <70 & pt unresponsive Diazepam 1 mg 12/28/24 13:21 Diazepam Inj 5 Mg/Ml Vial 2 Ml IVP X1 PRN anxeity Gabapentin 100 mg 12/27/24 08:15 12/28/24 14:26 Gabapentin 100 Mg Capsule PO 01/26/25 08:14 100 mg TID YBOANI Administration Glucagon 1 mg 12/26/24 21:15 Glucagon Inj 1 Mg Vial IM Q15MIN PRN BG <70, and no IV access Heparin Sodium (Porcine) 5,000 unit 12/27/24 09:00 12/28/24 08:17 Heparin Sod Inj 5000 Unit/Ml Vial SC 01/10/25 08:59 5,000 unit Q12HR YOBANI Administration Insulin Degludec 20 unit 12/28/24 21:00 Insulin Degludec 5 Unit/0.05 Ml (Per 5 Units) AR 01/27/25 20:59 QPM YOBANI Protocol Insulin Human Lispro 0 unit 12/27/24 07:30 12/28/24 11:44 Insulin Lispro (Admelog) 1 Unit/0.01 Ml Unit SC 01/26/25 07:29 4 unit AC YOBANI Administration Protocol Insulin Human Lispro 2 unit 12/28/24 11:30 12/28/24 11:45 Insulin Lispro (Admelog) 1 Unit/0.01 Ml Unit SC 01/27/25 11:29 2 unit AC YOBANI Administration Lactulose 10 gm 12/27/24 09:00 12/28/24 08:16 Lactulose Syrup 20 Gm/30 Ml Udc PO 01/26/25 08:59 10 gm QDAY YOBANI Administration Protocol Lidocaine 1 patch 12/26/24 21:11 12/27/24 12:35 Lidocaine 5% 1 Patch TOP 01/25/25 21:10 1 patch UD PRN Administration PAIN Protocol Nifedipine 30 mg 12/27/24 17:15 12/28/24 08:18 Nifedipine Xl 30 Mg Tabcr PO 01/26/25 17:14 30 mg QDAY YOBANI Administration Pantoprazole Sodium 40 mg 12/27/24 09:00 12/28/24 08:17 Pantoprazole Inj 40 Mg Vial IVP 01/26/25 08:59 40 mg QDAY YOBANI Administration Sennosides 1 tab 12/26/24 21:43 Senna Tablet PO 01/25/25 20:59 QDAY PRN constipation Protocol Tamsulosin HCl 0.4 mg 12/28/24 21:00 Tamsulosin Hcl 0.4 Mg Capsule PO 01/27/25 20:59 HS YOBANI Tizanidine HCl 4 mg 12/27/24 16:45 12/28/24 14:26 Tizanidine Hcl 2 Mg Tablet PO 01/26/25 16:44 4 mg TID YOBANI Administration Plan 59M with DM, HTN (recently off meds), neuropathy, remote EtOH use, prior carcinoid resection, presenting with syncope, hypotension, confusion, and recent fall. Neuro exam normal, labs notable for SHABBIR, hyperglycemia, WBC 16.9, rib fracture, perinephric stranding. Likely multifactorial orthostatic hypotension/metabolic encephalopathy, most likely due to autonomic disfunction due to uncontrolled diabetes combined with overuse of opiates in addition of tizandine. Orthostatic vitals positive but asymptomatic. Awaiting MRI results #Orthostatic Hypotension #Medication adverse effect tizanidine and opiates Likely orthostatic hypotension given standing dizziness, hypotensive episode in ED, improved with fluids. Patient reports drinking minimal water, and only sodas, and recently stopped taking his anti-hypertensive medications because his blood pressure is too low. Orthostatic vitals were done and were positive for orthostatic hypotension, however patient denies feeling any symptoms such as dizziness, light headedness, loss of consciousness, loss of balance. Underlying etiology could be due to uncontrolled diabetes (A1C:8.6, blood glucose:331) causing autonomic disregulation between blood pressure and cardiac function resulting in orthostatic hypotension. Or due to a2 agonists affect of tizandine. Plan: * Admit to telemetry * Orthostatic vitals now and daily * Maintenance fluid NS 100cc/hr * IV NS 1L Bolus 12/28 * Nifedpine 30mg PO QD - for HTN (Hold if BP <100/60) * PT/OT evaluation for mobility/fall risk * A1C: 8.6 * Consider abdominal binder or stockings # Metabolic Encephalopathy #c/f Opioid intoxication with cognitive impairment Confusion earlier today; now lucid but fluctuating. Utox positive for opiates. Likely multifactorial (orthostasis, dehydration, meds). He was unreliable, superficial and dramatic in his narration of events and appeared to duplicitly change his narrative while requesting pain medications. Normal ammonia levels. Plan: * MRI brain w/wo (per teleneuro) * Avoid sedating meds * Bedside swallow eval * B12, folate pending * lactulose 10 g PO QD # SHABBIR - Resolving Likely prerenal from poor PO intake/dehydration. Baseline Cr 1.2 --> 1.9 --> 1.5 now on NS and fluids Plan: * IV fluids as above * Avoid nephrotoxins * Trend daily BMP * Strict I/O # Rib Pain, Left 8th Rib Fracture # Back Pain From fall last week, pain with cough/sneeze. Thoracic & lumbar spine X-ray negative. Plan: * Pain control with [place] and lidocaine patch * Gabapentin 100mg PO TID # Diabetes Mellitus Hyperglycemia 276. Insulin regimen unclear, med rec pending. Plan: * Initiate SSI * Check A1C * Monitor glucose ACHS * Degludec 20 unit SC QPM * Lispro 2 unit SC AC # BPH On tamsulosin but held due to hypotension. Plan: * Hold tamsulosin for now * Consider bladder scan PRN for retention # Hyperlipidemia Plan: * Atorvastatin 20mg PO HS * Lipid panel: Triglycerides:188, cholesterol:116, LDL:49, HDL:29 # Chronic Neuropathy/Back Pain Patient reports chronic neuropathy and back pain, normally takes gabapentin and tizanidine. Requested tizanidine while inpatient; declined at this time given risk of worsening hypotension, sedation, and encephalopathy. Plan: * Continue tizanidine and gabapentin * Pain: norco, and lidocaine patch * Avoid excess opioids Health Maintenance Disposition: Admit to telemetry Diet: Regular, carb-consistent DVT prophylaxis: Heparin SQ Q12H GI prophylaxis: Protonix Code Status: Full Code ----- Plan discussed with attending physician Dr. Marilou Gallo MD PGY-1 Internal Medicine Attending Provider Attestation/Addendum I reviewed labs, imaging, EKG, home medications and prior available records. Face to face evaluation was performed by me. I have personally examined the patient and discussed assessment and plan with the IM team. I reviewed the resident note and agree with the plan with exceptions as below. Syncope, likely in the setting of orthostatic hypotension Orthostatic hypotension, likely from dehydration versus medication side effect Leukocytosis, likely from dehydration Uncontrolled diabetes mellitus with hyperglycemia Orthostatic vital signs are positive Continue IV fluids Trend WBC Continue insulin therapy and monitor fingersticks Follow-up brain MRI PT evaluation
[2024-12-28] MEDS: DIAZEPAM INJ 5 MG/ML VIAL 2 ML 1 MG IVP (14:49)
[2024-12-28] MEDS: ATORVASTATIN CALCIUM 20 MG TABLET PO (21:34)
[2024-12-28] MEDS: INSULIN DEGLUDEC 5 UNIT/0.05 ML (PER 5 UNITS) 20 UNIT SC (21:35)
[2024-12-28] MEDS: TAMSULOSIN HCL 0.4 MG CAPSULE PO (21:36)
--- NOTE | 2024-12-28 23:38 | PD.VPROG1 ---
Telemedicine visit statement This visit was conducted with the use of phone was obtained on 12/28/24 at 2338. Documentation for date of: 12/28/24 Subjective Subjective Interval history: Patient is in telemetry, still c/o headache, dizziness, gets anxious and restless asking for pain meds and antianxiety agents round the clock . Virtual exam Vital Signs Temp Pulse Resp BP Pulse Ox O2 Del Method 98.3 F 92 21 H 100/65 98 Room Air 12/28/24 20:00 12/28/24 20:00 12/28/24 20:00 12/28/24 20:00 12/28/24 20:00 12/28/24 20:00 Objective Labs 12/28/24 05:08 12/28/24 05:08 Labs: Laboratory Results - last 24 hr 12/28/24 05:08 WBC 9.1 D RBC 3.81 L Hgb 12.2 L Hct 36.3 L MCV 95 MCH 32.0 MCHC 33.6 RDW Std Deviation 45.4 H Plt Count 320 Neut % (Auto) 63 Lymph % (Auto) 25 [place] % (Auto) 10 Eos % (Auto) 2 Baso % (Auto) 1 Neut # (Auto) 5.7 Lymph # (Auto) 2.3 [place] # (Auto) 0.9 H Eos # (Auto) 0.2 Baso # (Auto) 0.1 Immature Gran # (Auto) 0.03 H Absolute Nucleated RBC 0.00 Immature Gran % 0 Nucleated RBC % 0 Sodium 135 L Potassium 4.4 Chloride 104 Carbon Dioxide 20.7 Anion Gap 10 BUN 22 Creatinine 1.1 Estim Creat Clear Calc 80.2 eGFR > 60 BUN/Creatinine Ratio 20 Glucose 261 H D Calculated Osmolality 282 Calcium 9.0 Corrected Calcium 9.1 Phosphorus 2.8 Magnesium 1.8 Total Bilirubin 0.3 AST 15 ALT 20 Alkaline Phosphatase 76 Total Protein 6.2 Albumin 3.9 Globulin 2.3 Albumin/Globulin Ratio 1.7 Assessment & Plan Problem List (1) Altered mental status: Status: Acute Assessment and plan: improving, but varies FU with MRI brain with sedation/Benzos as tolerated COnsider doing EEG if needed. (2) Hypotension: Status: Acute Assessment and plan: improving with fluids and meds adjustment (3) Diabetes mellitus with hyperglycemia: Status: Chronic Assessment and plan: continue to keep the sugar controlled with diet and meds (4) Chest pain: Status: Acute Assessment and plan: from recent fall leading to rib fracture. continue with current pain mgt as needed.
[2024-12-29] VITALS (7 sets, daily range): BP systolic 99–136; BP diastolic 70–88; PULSE 75–94; RESP 12–20; TEMP 36.2–37.5; O2SAT 95–99; BMI 31.1; BMI 31.2
[2024-12-29] MEDS: HYDROcodone/APAP 5/325 TABLET 1 TAB PO ×3 (00:01→12:23)
[2024-12-29] MEDS: SODIUM CHLORIDE 0.9% 1000 ML 1,000 ML 100 ML IV (04:34)
[2024-12-29] MEDS: GABAPENTIN 100 MG CAPSULE PO ×2 (05:31→13:33)
[2024-12-29 06:56] LABS: Alanine Aminotransferase 14 U/L (10-49); Albumin, Serum 3.6 gm/dL (3.5-5.0); Albumin/Globulin Ratio 1.6 (1.2-2.2); Alkaline Phosphatase 67 U/L (46-116); Anion Gap 10 (7-16); Aspartate Amino Transferase 12 U/L (0-34); BUN/Creatinine Ratio 16 Ratio (12-20); Bilirubin,Total 0.3 mg/dL (0.3-1.2); Blood Urea Nitrogen 14 mg/dL (9-23); Calcium 8.9 mg/dL (8.3-10.6); Calcium (Corrected) 9.2 mg/dL (8.5-10.1); Carbon Dioxide 19.2 mMol/L (20.0-31.0); Chloride 107 mMol/L (98-107); Creatinine (Component) 0.9 mg/dL (0.6-1.3); Estimated Creatinine Clearance 100.9 mL/min (>60); Globulin 2.3 gm/dL (2.3-3.5); Glucose 243 mg/dL (74-106); Magnesium 2.1 mg/dL (1.6-2.6); Osmolality,Calculated 280 (275-295); Phosphorous 2.4 mg/dL (2.4-5.1); Potassium 4.2 mMol/L (3.4-5.1); Sodium 136 mMol/L (136-145); Total Protein 5.9 gm/dL (5.7-8.2); eGFR > 60 See Note
[2024-12-29] MEDS: INSULIN LISPRO (AdmeLOG) 1 UNIT/0.01 ML UNIT SC ×2 (07:41→11:42)
[2024-12-29] MEDS: INSULIN LISPRO (AdmeLOG) 1 UNIT/0.01 ML UNIT 2 UNIT SC (07:42)
[2024-12-29] MEDS: INSULIN DEGLUDEC 5 UNIT/0.05 ML (PER 5 UNITS) 10 UNIT SC (08:15)
[2024-12-29] MEDS: NIFEdipine XL 30 MG TABCR PO (08:16)
[2024-12-29] MEDS: HEPARIN SOD INJ 5000 UNIT/ML VIAL SC (08:16)
[2024-12-29] MEDS: LACTULOSE SYRUP 20 GM/30 ML UDC 10 GM PO (08:17)
[2024-12-29 08:43] LABS: Basophils # (Auto) 0.1 Thou/mm3 (0.0-0.2); Basophils % (Auto) 1 % (0-2.5); Eosinophils # (Auto) 0.2 Thou/mm3 (0.0-0.5); Eosinophils % (Auto) 2 % (0-10); Hematocrit 32.8 % (41.0-53.0); Hemoglobin 11.3 g/dL (13.5-16.0); Immature Granulocytes Auto 0.02 Thou/mm3 (0.00-0.00); Lymphocytes # (Auto) 1.3 Thou/mm3 (1.0-4.8); Lymphocytes % (Auto) 14 % (10-50); Mean Corpuscular HGB Conc 34.5 g/dl (31.0-37.0); Mean Corpuscular Hemoglobin 32.5 pg (25.0-35.0); Mean Corpuscular Volume 94 fL (80-100); Monocytes # (Auto) 0.6 Thou/mm3 (0.0-0.8); Monocytes % (Auto) 6 % (0-12); Neutrophils # (Auto) 7.2 Thou/mm3 (1.8-7.7); Neutrophils % (Auto) 77 % (37-80); Nucleated Red Blood Cell # 0.00 Thou/mm3 (0.00-0.00); Nucleated Red Blood Cell % 0 /100 WBC (0); Platelet Count 292 Thou/mm3 (140-440); RDW Standard Deviation 43.7 fL (35.1-43.9); Red Blood Count 3.48 Miln/mm3 (4.50-5.90); White Blood Count 9.4 Thou/mm3 (3.8-10.6)
--- NOTE | 2024-12-29 10:34 | CHAP ---
Patient was visited by a Spiritual Care Volunteer on 12/28/2024 between 0900 and 1140 and received comfort, encouragement and/or prayer. Patient also received a blessing on infant and family.
[2024-12-29] MEDS: INSULIN LISPRO (AdmeLOG) 1 UNIT/0.01 ML UNIT 5 UNIT SC (11:43)
--- NOTE | 2024-12-29 16:19 | ESPR_ITS ---
Documentation for date of: 12/29/24 Subjective Subjective Interval history: Patient was seen and examined at bedside. He was questioning at time he will be discharged. His orthostatic vitals showed significant improvement after he was decreased his tamsulosin dose and also use the compression socks. His MRI was done and that showed punctate lesion, pending neurology final recommendations. PT saw the patient and they recommended that patient to get outpatient physical therapy if needed to be referred by his PCP. Exam Vital Signs Temp Pulse Resp BP Pulse Ox O2 Del Method 97.7 F 86 20 136/88 H 96 Room Air 12/29/24 12:00 12/29/24 12:00 12/29/24 12:00 12/29/24 12:00 12/29/24 12:00 12/29/24 12:00 Narrative Exam GEN: AOx3, able to speak full sentences HEENT: NC/AC, PERRLA, oral mucosa moist, neck supple CVS: RRR, S1-S2 present, no murmurs appreciated RESP: CTAB GI: soft,non distended, non tender, NBS MSK: able to move all 4 limbs, no lower extremity edema SKIN: warm and dry ANALYTICS ARCHITECT: CN II-XII and Sensation grossly intact. Objective Labs 12/29/24 08:15 12/29/24 04:33 Labs: Laboratory Results - last 24 hr 12/29/24 12/29/24 04:33 08:15 WBC 9.4 RBC 3.48 L Hgb 11.3 L Hct 32.8 L MCV 94 MCH 32.5 MCHC 34.5 RDW Std Deviation 43.7 Plt Count 292 Neut % (Auto) 77 Lymph % (Auto) 14 [place] % (Auto) 6 Eos % (Auto) 2 Baso % (Auto) 1 Neut # (Auto) 7.2 Lymph # (Auto) 1.3 [place] # (Auto) 0.6 Eos # (Auto) 0.2 Baso # (Auto) 0.1 Immature Gran # (Auto) 0.02 H Absolute Nucleated RBC 0.00 Immature Gran % 0 Nucleated RBC % 0 Sodium 136 Potassium 4.2 Chloride 107 Carbon Dioxide 19.2 L Anion Gap 10 BUN 14 Creatinine 0.9 Estim Creat Clear Calc 100.9 eGFR > 60 BUN/Creatinine Ratio 16 Glucose 243 H Calculated Osmolality 280 Calcium 8.9 Corrected Calcium 9.2 Phosphorus 2.4 Magnesium 2.1 Total Bilirubin 0.3 AST 12 ALT 14 Alkaline Phosphatase 67 Total Protein 5.9 Albumin 3.6 Globulin 2.3 Albumin/Globulin Ratio 1.6 Quality Measures Quality Measures VTE prophylaxis Assessment & Plan Assessment Current Active Medications: Generic Name Dose Route Start Last Admin Trade Name Freq PRN Reason Stop Dose Admin Acetaminophen 650 mg 12/26/24 21:00 Acetaminophen 325 Mg Tablet PO 01/25/25 20:59 Q6H PRN Fever >100.4 and pain 1-3 Hydrocodone Bitart/Acetaminophen 1 tab 12/28/24 10:27 12/29/24 12:23 Hydrocodone/Apap 5/325 Tablet PO 12/31/24 21:04 1 tab Q6HR PRN Administration PAIN SCALE 4-6 (Moderate Atorvastatin Calcium 20 mg 12/27/24 21:00 12/28/24 21:34 Atorvastatin Calcium 20 Mg Tablet PO 01/26/25 20:59 20 mg HS YOBANI Administration Buspirone HCl 15 mg 12/28/24 07:30 12/29/24 13:33 Buspirone Hcl 5 Mg Tablet PO 01/27/25 07:29 15 mg TID YOBANI Administration Dextrose 25 ml 12/26/24 21:15 Dextrose 50%-Water Inj 50 Ml Syringe IV 01/25/25 21:14 Q15MIN PRN BG 50-70 responsive npo pt Dextrose 50 ml 12/26/24 21:15 Dextrose 50%-Water Inj 50 Ml Syringe IV 01/25/25 21:14 Q15MIN PRN BG <50 OR BG <70 & pt unresponsive Gabapentin 100 mg 12/27/24 08:15 12/29/24 13:33 Gabapentin 100 Mg Capsule PO 01/26/25 08:14 100 mg TID YOBANI Administration Glucagon 1 mg 12/26/24 21:15 Glucagon Inj 1 Mg Vial IM Q15MIN PRN BG <70, and no IV access Heparin Sodium (Porcine) 5,000 unit 12/27/24 09:00 12/29/24 08:16 Heparin Sod Inj 5000 Unit/Ml Vial SC 01/10/25 08:59 5,000 unit Q12HR YOBANI Administration Insulin Degludec 30 unit 12/29/24 21:00 Insulin Degludec 5 Unit/0.05 Ml (Per 5 Units) SC 01/28/25 20:59 QPM YOBANI Protocol Insulin Human Lispro 0 unit 12/27/24 07:30 12/29/24 11:42 Insulin Lispro (Admelog) 1 Unit/0.01 Ml Unit SC 01/26/25 07:29 2 unit AC YOBANI Administration Protocol Insulin Human Lispro 5 unit 12/29/24 11:30 12/29/24 11:43 Insulin Lispro (Admelog) 1 Unit/0.01 Ml Unit SC 01/28/25 11:29 5 unit AC YOBANI Administration Lactulose 10 gm 12/27/24 09:00 12/29/24 08:17 Lactulose Syrup 20 Gm/30 Ml Udc PO 01/26/25 08:59 10 gm QDAY YOBANI Administration Protocol Lidocaine 1 patch 12/26/24 21:11 12/27/24 12:35 Lidocaine 5% 1 Patch TOP 01/25/25 21:10 1 patch UD PRN Administration PAIN Protocol Nifedipine 30 mg 12/27/24 17:15 12/29/24 08:16 Nifedipine Xl 30 Mg Tabcr PO 01/26/25 17:14 30 mg QDAY YOBANI Administration Pantoprazole Sodium 40 mg 12/30/24 09:00 Pantoprazole 40 Mg Tablet PO 01/29/25 08:59 QDAY YOBANI Protocol Sennosides 1 tab 12/26/24 21:43 Senna Tablet PO 01/25/25 20:59 QDAY PRN constipation Protocol Tamsulosin HCl 0.4 mg 12/28/24 21:00 12/28/24 21:36 Tamsulosin Hcl 0.4 Mg Capsule PO 01/27/25 20:59 0.4 mg HS YOBANI Administration Tizanidine HCl 4 mg 12/27/24 16:45 12/29/24 13:33 Tizanidine Hcl 2 Mg Tablet PO 01/26/25 16:44 4 mg TID YOBANI Administration Plan 59M with DM, HTN (recently off meds), neuropathy, remote EtOH use, prior carcinoid resection, presenting with syncope, hypotension, confusion, and recent fall. Neuro exam normal, labs notable for SHABBIR, hyperglycemia, WBC 16.9, rib fracture, perinephric stranding. Likely multifactorial orthostatic hypotension/metabolic encephalopathy, most likely due to autonomic disfunction due to uncontrolled diabetes combined with overuse of opiates in addition of tizandine. Orthostatic vitals positive but asymptomatic. Awaiting MRI results #Orthostatic Hypotension #Medication adverse effect tizanidine and opiates Likely orthostatic hypotension given standing dizziness, hypotensive episode in ED, improved with fluids. Patient reports drinking minimal water, and only sodas, and recently stopped taking his anti-hypertensive medications because his blood pressure is too low. Orthostatic vitals were done and were positive for orthostatic hypotension, however patient denies feeling any symptoms such as dizziness, light headedness, loss of consciousness, loss of balance. Underlying etiology could be due to uncontrolled diabetes (A1C:8.6, blood glucose:331) causing autonomic disregulation between blood pressure and cardiac function resulting in orthostatic hypotension. Or due to a2 agonists affect of tizandine. Plan: * Admit to telemetry * Orthostatic vitals now and daily * Nifedpine 30mg PO QD - for HTN (Hold if BP <100/60) * A1C: 8.6 * Consider abdominal binder or stockings # Metabolic Encephalopathy # Polypharmacy with narcotics and muscle relaxants Confusion earlier today; now lucid but fluctuating. Utox positive for opiates. Likely multifactorial (orthostasis, dehydration, meds). He was unreliable, superficial and dramatic in his narration of events and appeared to duplicitly change his narrative while requesting pain medications. Normal ammonia levels. Brain MRI showed multiple punctate foci with increased signal in the white cerebral matter. Plan: - Med reconciliation was ordered, counseling regarding pain management and the risk of combining muscle relaxants and narcotics can result in worsening of her symptoms was done extensively. Patient expresses understanding. ?Follow-up with neurologist recommendations * Avoid sedating meds * Bedside swallow eval * B12, folate pending * lactulose 10 g PO QD # SHABBIR -resolved # Rib Pain, Left 8th Rib Fracture # Back Pain From fall last week, pain with cough/sneeze. Thoracic & lumbar spine X-ray negative. Plan: * Pain control with [place] and lidocaine patch * Gabapentin 100mg PO TID # Diabetes Mellitus Hyperglycemia 276. Insulin regimen unclear, med rec pending. Plan: * Initiate SSI * Check A1C * Monitor glucose ACHS * Degludec 30 unit SC QPM * Lispro 5 unit SC AC # BPH On tamsulosin but held due to hypotension. Plan: * Resume tamsulosin 0.4 mg p.o. daily * Consider bladder scan PRN for retention # Hyperlipidemia Plan: * Atorvastatin 20mg PO HS * Lipid panel: Triglycerides:188, cholesterol:116, LDL:49, HDL:29 # Chronic Neuropathy/Back Pain Patient reports chronic neuropathy and back pain, normally takes gabapentin and tizanidine. Requested tizanidine while inpatient; declined at this time given risk of worsening hypotension, sedation, and encephalopathy. Plan: * Continue tizanidine and gabapentin * Pain: norco, and lidocaine patch * Avoid excess opioids Health Maintenance Disposition: Admit to telemetry Diet: Regular, carb-consistent DVT prophylaxis: Heparin SQ Q12H GI prophylaxis: Protonix Code Status: Full Code ----- - Patient's plan and care discussed with my attending, Dr. Marilou Daly MD Internal Medicine PGY-3 Attending Provider Attestation/Addendum I reviewed labs, imaging, EKG, home medications and prior available records. Face to face evaluation was performed by me. I have personally examined the patient and discussed assessment and plan with the IM team. I reviewed the resident note and agree with the plan with exceptions as below. Syncope, likely in the setting of orthostatic hypotension Orthostatic hypotension, likely from dehydration versus medication side effect Leukocytosis, likely from dehydration Uncontrolled diabetes mellitus with hyperglycemia Orthostatic vital signs are positive Encourage oral hydration Trend WBC: Downtrending Continue insulin therapy and monitor fingersticks Follow-up brain MRI: Showed no acute changes but possible demyelinating changes. Consulted neurology: Outpatient follow-up Time spent is 35 minutes. More than 50% of the time was spent on patient education and coordination of care.
--- NOTE | 2024-12-29 16:52 | PD.RESDS ---
Planned Discharge Date 12/29/24 DS: Providers Provider Date of admission: 12/26/24 20:44 Primary care physician: Armin Rosario MD Admitting Provider: Robert Montoya MD Attending Provider on Admission: Carl Zamarripa MD Consults: 12/26/24 17:36 Consult to Neurology / Tele-Neurology Routine Comment: Consulting Provider: [facility] 12/26/24 21:13 PT [Referral Physical Therapy] Routine Comment: Physician Instructions: 12/28/24 16:07 Consult to Neurology / Tele-Neurology Routine Comment: episode of confusion, generalized weakness Consulting Provider: Alexander Arriola Attending Provider on DC: Rafat Daly MD Discharging Provider: Rafat Daly MD DS: Diagnosis Problem List Completed Was Problem List Reviewed/Reconciled?: Yes Hospital Course Hospital Course Hospital course: A 59-year-old male patient with past medical history of diabetes mellitus with peripheral neuropathy, hypertension, remote history of alcohol use disorder, history of carcinoid tumor s/p resection, was brought to the ED due to an episode of syncope. He reported that he had a recent mechanical fall. His labs was notable for prerenal SHABBIR and increased WBCs to 16.9 and also left rib fracture nondisplaced. Patient was admitted for workup of syncopal episodes. Patient was found to have orthostatic hypotension. Also patient was noticed to have polypharmacy as the patient was on chronic opioids and tizanidine , He was also noticed to be taking tamsulosin 0.8 mg which was reduced to 0.4 during this admission.. We also believe that the patient might have some sort of autonomic dysfunction secondary to his prolonged uncontrolled diabetes. MRI for the brain was done as the patient had a brief episode of confusion and which showed punctate foci. Neurologist was consulted and she recommended also to follow-up outpatient settings. Patient was started on compression socks, IV fluids, midodrine. Symptoms improved significantly. Physical therapy assessment recommended the patient to have also outpatient physical therapy. His SHABBIR has resolved and the patient deemed to be clinically stable for discharge and was given the following instructions: Discharge Instructions: Follow up with your PCP within one week from discharge Avoid raising up suddenly from laying down and follow instructions of physical therapy Continue on compression sucks to decrease the rate drop of your BP. Decrease the dose of Flomax to 0.4mg per day Decrease taking multiple pain meds with muscle relaxants as may worsen your dizziness. In case of worsening of your symptoms please return to the ED as soon as possible Follow up with Dr. Arriola in 2 weeks Discharging diagnosis #Orthostatic hypotension #Acute encephalopathy secondary to polypharmacy #Prerenal SHABBIR #Left 8 rib fracture #Chronic back pain #History of diabetes mellitus #Peripheral neuropathy #BPH #Hyperlipidemia Time Spent with Patient Time attestation: Total time spent providing and/or coordinating discharge services: Time spent: Greater than 30 minutes Exam Vital Signs Temp Pulse Resp BP Pulse Ox O2 Del Method 97.7 F 86 20 136/88 H 96 Room Air 12/29/24 12:00 12/29/24 12:00 12/29/24 12:00 12/29/24 12:00 12/29/24 12:12/29/24 12:00 Narrative Exam GEN: AOx3, able to speak full sentences HEENT: NC/AC, PERRLA, oral mucosa moist, neck supple CVS: RRR, S1-S2 present, no murmurs appreciated RESP: CTAB GI: soft,non distended, non tender, NBS MSK: able to move all 4 limbs, no lower extremity edema SKIN: warm and dry 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 Discharge Plan Plan Patient Disposition: HOME (Self Care) Patient condition on transfer: Stable and Benefits outweigh risks Care Plan Goals: Discharge Instructions: Follow up with your PCP within one week from discharge Avoid raising up suddenly from laying down and follow instructions of physical therapy Continue on compression socks to decrease the rate drop of your blood pressure. Decrease the dose of Flomax to 0.4mg per day Decrease taking multiple pain meds with muscle relaxants as may worsen your dizziness. In case of worsening of your symptoms please return to the ED as soon as possible Follow up with Dr. Arriola in 2 weeks Prescriptions/Referrals Prescriptions/Med Rec: New nifedipine 30 mg Tablet Extended Release 24hr 30 mg PO QDAY PRN (Reason: take if systolic 140 or more) Qty: 7 0RF tamsulosin 0.4 mg Capsule 0.4 mg PO HS 7 Days Qty: 7 0RF Continued simvastatin 40 mg tablet 40 mg PO QDAY gabapentin 100 mg capsule 100 mg PO TID tizanidine 4 mg Capsule 4 mg PO TID hydrocodone-acetaminophen 10-325 mg tablet 1 tab PO Q6HR Patient Comments: PRN Levemir FlexTouch U100 Insulin 100 unit/mL (3 mL) Insulin Pen 80 unit SUBCUT QDAY buspirone 15 mg Tablet 15 mg PO TID Patient Comments: take one tab q8 for nerves Discontinued tizanidine 4 mg capsule 4 mg PO Q8H PRN (Reason: pain, muscle spasm) lisinopril 2.5 mg tablet 2.5 mg PO QDAY albuterol sulfate 90 mcg/actuation aero powdr breath act w/sensor 2 inh inhalation Q6H tamsulosin 0.4 mg capsule 0.8 mg PO QHS benazepril 20 mg Tablet 20 mg PO QDAY metoclopramide HCl [Reglan] 10 mg tablet 10 mg PO Q6H PRN (Reason: abdominal pain) Qty: 20 0RF Referrals: Armin Rosario MD [Primary Care Provider] - Patient/Caregiver Discharge Instructions Discharge Activity: as per physical therapy Education Materials: Abdominal Pain, Diabetes Exercise Plan, ED Low Blood Pressure, All Causes, ED Fainting, Vagal Reaction, ED Fainting, Uncertain Cause Print Language: Occitan Stand Alone Forms: [employer] Award Info., Patient Portal Info Letter Discharge Order Discharge Orders: Discharge (Routine); Ordered 12/29/24 Ordered By: Rafat Daly Quality Discharge Quality Measures VTE prophylaxis MD Attestestation MD Attestation I reviewed labs, imaging, EKG, home medications and prior available records. Face to face evaluation was performed by me. I have personally examined the patient and discussed assessment and plan with the IM team. I reviewed the resident note and agree with the plan with exceptions as below. Syncope, likely in the setting of orthostatic hypotension Orthostatic hypotension, likely from dehydration versus medication side effect Leukocytosis, likely from dehydration Uncontrolled diabetes mellitus with hyperglycemia Orthostatic vital signs are positive Encourage oral hydration Trend WBC: Downtrending Continue insulin therapy and monitor fingersticks Follow-up brain MRI: Showed no acute changes but possible demyelinating changes. Consulted neurology: Outpatient follow-up Time spent is 35 minutes. More than 50% of the time was spent on patient education and coordination of care.
== END 2024-12-29 17:32 | disposition home or self-care (01) | DRG 92 ==
LOC: SERX 20:07 → SERHOLD 21:30 → S2NX 23:09
PROVIDERS: Emergency Medicine; Admitting Provider Student in an Organized Health Care Education/Training Program; Emergency Provider Emergency Medicine; PCP Family Medicine; Visit Provider Student in an Organized Health Care Education/Training Program
DX: G92.8 Other toxic encephalopathy (principal); E34.00 Carcinoid syndrome, unspecified; N17.9 Acute kidney failure, unspecified; S22.32XA Fracture of one rib, left side, initial encounter for closed fracture; I95.1 Orthostatic hypotension; E86.0 Dehydration; E11.21 Type 2 diabetes mellitus with diabetic nephropathy; E11.40 Type 2 diabetes mellitus with diabetic neuropathy, unspecified; E11.65 Type 2 diabetes mellitus with hyperglycemia; I10 Essential (primary) hypertension; N40.0 Benign prostatic hyperplasia without lower urinary tract symptoms; Z98.1 Arthrodesis status; E78.5 Hyperlipidemia, unspecified; M54.9 Dorsalgia, unspecified; H53.2 Diplopia; Z79.899 Other long term (current) drug therapy; G89.29 Other chronic pain; E11.42 Type 2 diabetes mellitus with diabetic polyneuropathy; W18.30XA Fall on same level, unspecified, initial encounter; Z79.4 Long term (current) use of insulin; Z79.891 Long term (current) use of opiate analgesic
CPT/HCPCS: 36415; 36600; 70450; 70553; 71045; 71260; 72080; 74177; 80053; 80061; 80307; 80320; 80329; 81001; 82140; 82607; 82746; 82803; 83036; 83735; 83880; 84100; 84439; 84443; 84484; 85025; 85610; 93005; 93306; 96361; 96374; 96375; 97162; 99284; A4649; A9577; J1171; J1644; J1815; J2470; J3360; J3475; J3490; J7030; Q9967; A9270; G0480

== ENCOUNTER 2025-01-10 09:13 | Inpatient (IN) | payer MEDICARE, MEDICAID, SELFPAY ==
[2025-01-10 09:20] VITALS: BP 130/84; PULSE 101; RESP 18; TEMP 36.8; O2SAT 98
--- NOTE | 2025-01-10 09:30 | XR_ITS ---
Examination: CT brain head without contrast. 2-D sagittal coronal reconstructions Date and time of exam:January 10, 2025 1009 hours INDICATIONS: Altered mental status today, history stroke alert December 26, 2024 COMPARISON: December 26, 2024 CTDI: vol (mGy):51.2 DLP: (mGycm):970 Technique: Multiple CT axial sections of the brain have been obtained, 5 mm slice thickness. Contrast has not been administered. 2-D sagittal, coronal reconstructions have been obtained Low dose protocols were performed. One or more of the following dose reduction techniques were used; automated exposure control, adjustment of the mA and/or KV according to patient size, use of iterative reconstruction technique. Findings: No significant ventricular enlargement. Intra-axial or extra-axial hemorrhage density is not seen. No mass effect or midline shift Basal cisterns are not remarkable. Fourth ventricle is midline. Cranial vault intact. Impression: Negative for acute hemorrhage, mass effect or midline shift Please see the brain MRI report December 28, 2024, consider repeat brain MRI follow-up as clinically warranted
--- NOTE | 2025-01-10 09:30 | XR_ITS ---
Examination: CT abdomen and pelvis without contrast. Coronal 3-D reconstructions. Sagittal 2-D reconstructions. Date and time of exam:January 10, 2025 1014 hours, comparison CT chest abdomen pelvis December 26, 2024 INDICATIONS: Severe abdominal pain with nausea today CTDI: vol (mGy): 8.38 DLP: (mGycm): 590 Technique: Axial images of the abdomen have been obtained, 3 mm slice thickness Intravenous contrast material has not been administered. Low dose protocols were performed. One or more of the following dose reduction techniques were used; automated exposure control, adjustment of the mA and/or KV according to patient size, use of iterative reconstruction technique. Findings: Trace pericardial effusion No focal liver or splenic lesion No pancreatic or adrenal mass Perinephric stranding No renal or ureteral calculi, no hydronephrosis Aorta normal size Mildly thickened appendix but no periappendiceal inflammatory change No bowel obstruction No diverticulitis No prostatomegaly Bladder intact Grade 1 spondylolisthesis L5 on S1 with prominent osteopenia IMPRESSION: Perinephric stranding, consider urinary tract infection Mildly thickened appendix but no periappendiceal inflammatory change, clinical correlation advised No bowel obstruction or diverticulitis
--- NOTE | 2025-01-10 09:30 | EKG_ITS ---
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
--- NOTE | 2025-01-10 09:31 | PD.EDRME ---
Rapid Medical Screening Exam E Arrival date/time: 01/10/25 09:13 59-year-old male with a history of hyperlipidemia, hypertension, type 2 diabetes presents to the emergency room with a chief complaint of diffuse abdominal pain. Patient was sent over by his primary care provider for altered mental status. I have greeted and performed a focused initial assessment of this patient. A comprehensive ED assessment and evaluation of the patient, analysis of all test results, and completion of the medical decision making process will be conducted by additional ED providers. Chief Complaint: Altered Mental Status Vital signs: Vital Signs Temperature 98.3 F 01/10/25 09:20 Pulse Rate 101 H 01/10/25 09:20 Respiratory Rate 18 01/10/25 09:20 Blood Pressure 130/84 01/10/25 09:20 Pulse Oximetry (%) 98 01/10/25 09:20 Oxygen Delivery Method Room Air 01/10/25 09:20 Vital signs reviewed by provider: Yes
[2025-01-10 09:47] LABS: Basophils # (Auto) 0.0 Thou/mm3 (0.0-0.2); Basophils % (Auto) 1 % (0-2.5); Eosinophils # (Auto) 0.0 Thou/mm3 (0.0-0.5); Eosinophils % (Auto) 0 % (0-10); Hematocrit 43.5 % (41.0-53.0); Hemoglobin 14.7 g/dL (13.5-16.0); Immature Granulocytes Auto 0.01 Thou/mm3 (0.00-0.00); Lymphocytes # (Auto) 1.3 Thou/mm3 (1.0-4.8); Lymphocytes % (Auto) 25 % (10-50); Mean Corpuscular HGB Conc 33.8 g/dl (31.0-37.0); Mean Corpuscular Hemoglobin 31.6 pg (25.0-35.0); Mean Corpuscular Volume 94 fL (80-100); Monocytes # (Auto) 0.8 Thou/mm3 (0.0-0.8); Monocytes % (Auto) 15 % (0-12); Neutrophils # (Auto) 3.0 Thou/mm3 (1.8-7.7); Neutrophils % (Auto) 58 % (37-80); Nucleated Red Blood Cell # 0.00 Thou/mm3 (0.00-0.00); Nucleated Red Blood Cell % 0 /100 WBC (0); Platelet Count 318 Thou/mm3 (140-440); RDW Standard Deviation 43.5 fL (35.1-43.9); Red Blood Count 4.65 Miln/mm3 (4.50-5.90); White Blood Count 5.1 Thou/mm3 (3.8-10.6)
[2025-01-10 10:03] LABS: INR 1.0 (0.9-1.3); Partial Thromboplastin Time 27.6 Seconds (22.0-36.0); Prothrombin Time 10.6 Seconds (9.0-12.2)
[2025-01-10 10:08] LABS: Ammonia < 10 uMol/L (11-32)
[2025-01-10 10:12] LABS: Alanine Aminotransferase 13 U/L (10-49); Albumin, Serum 4.3 gm/dL (3.5-5.0); Albumin/Globulin Ratio 1.3 (1.2-2.2); Alcohol, Blood Medical < 3.0 mg/dL (0-10.0); Alkaline Phosphatase 74 U/L (46-116); Anion Gap 12 (7-16); Aspartate Amino Transferase 13 U/L (0-34); BUN/Creatinine Ratio 13 Ratio (12-20); Bilirubin,Total 0.5 mg/dL (0.3-1.2); Blood Urea Nitrogen 23 mg/dL (9-23); Calcium 9.4 mg/dL (8.3-10.6); Calcium (Corrected) 9.4 mg/dL (8.5-10.1); Carbon Dioxide 23.4 mMol/L (20.0-31.0); Chloride 94 mMol/L (98-107); Creatinine (Component) 1.8 mg/dL (0.6-1.3); Estimated Creatinine Clearance 47.8 mL/min (>60); Globulin 3.2 gm/dL (2.3-3.5); Lipase 28 U/L (12-53); Magnesium 2.3 mg/dL (1.6-2.6); Osmolality,Calculated 287 (275-295); Potassium 5.1 mMol/L (3.4-5.1); Sodium 129 mMol/L (136-145); Total Protein 7.5 gm/dL (5.7-8.2); Troponin I < 0.020 ng/mL (0.0-0.045); eGFR 43 See Note
[2025-01-10 10:13] LABS: Glucose 543 mg/dL (74-106)
--- NOTE | 2025-01-10 10:48 | EDNOTE_ITS ---
ED Abdominal Pain RME/HPI General Chief Complaint: Altered Mental Status Stated complaint: NOT MAKING SENSE Time seen by provider: 01/10/25 09:48 Arrival date/time: 01/10/25 09:13 RME / HPI RME / HPI narrative: 01/10/25 09:13 59-year-old male with a history of hyperlipidemia, hypertension, type 2 diabetes presents to the emergency room with a chief complaint of diffuse abdominal pain. Patient was sent over by his primary care provider for altered mental status. I have greeted and performed a focused initial assessment of this patient. A comprehensive ED assessment and evaluation of the patient, analysis of all test results, and completion of the medical decision making process will be conducted by additional ED providers. DR. SEGUN FLORES ED EVALUATION 59 year old male with history of hypertension, diabetes, prior carcinoid tumor resection, BPH presents to the ED for evaluation of abdominal pain beginning 3 days ago. Reports history of carcinoid syndrome (x several years) and presentation today similar to prior flare ups. Pain described as aching in sensation, rating 10/10 in severity. Accompanied by nausea and vomiting. Additionally reports he had an appointment scheduled with his PCP Dr. Rosario today. Evidently while in the office was not making sense and sent here for further evaluation. Patient reports his had also told him he was not making sense 2 days ago. Denies any numbness/tingling, change in speech, gait, or unilateral weakness. Denies fevers, chills, chest pain, cough, shortness of breath, or urinary symptoms. Related Data Home Medications ?Medication ?Instructions ?Recorded ?Confirmed insulin detemir U-100 100 unit/mL 80 unit subcut QDAY 08/19/18 12/27/24 (3 mL) subcutaneous pen (Levemir FlexTouch U-100 Insulin) tizanidine 4 mg capsule 4 mg PO TID muscle spasm 12/27/24 buspirone 15 mg tablet 15 mg PO TID 11/22/20 hydrocodone 10 mg-acetaminophen 1 tab PO Q6HR 12/19/21 12/27/24 325 mg tablet gabapentin 100 mg capsule 100 mg PO TID 03/25/2412/27 simvastatin 40 mg tablet 40 mg PO QDAY 03/25/2412/27 Previous Rx's ?Medication ?Instructions ?Recorded nifedipine 30 mg tablet,extended 30 mg PO QDAY PRN barbra e if systolic 12/29/24 release 24 hr 140 or more #7 tabs Allergies Allergy/AdvReac Type Severity Reaction Status Date / Time No Known Allergies Allergy Verified 01/10/25 09:16 Review of Systems Review of Systems Systems Reviewed: All systems reviewed, normal except as documented Past Medical History Past Medical History NEUROLOGIC: Positive Peripheral Neuropathy CARDIAC: Positive Hypercholesterolemia and Hypertension GASTROINTESTINAL: Positive Gastrointestinal Disorders, Gall Bladder Disease and Gastroesophageal Reflux Disease GENITOURINARY: Positive Genitourinary Disorders MUSCULOSKELETAL: Positive Musculoskeletal Disorders and Arthritis ENDOCRINE: Positive Endocrine Disorders and Diabetes Mellitus Type 2 PSYCHO/SOCIAL: Positive Depression and Anxiety Family History FAMILY HISTORY: Negative Family Psychiatric Problems, Family Respiratory Disorders, Family Cardiac Disorders, Family Gastrointestinal Problems, Family Cancer, Family Surgery or Family Anesthesia Reaction Surgical History SURGICAL: Positive Abdominal Surgery and Joint Replacement Social History SMOKING STATUS: Never smoker ED Exam Narrative Physical exam: See MDM Course Quality Measures none Orders Category Date Time Status Bedside Blood Glucose NOW Care 01/10/25 09:30 Active 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 now Care 01/10/25 10:56 Active Continuous Pulse Oximetry NOW Care 01/10/25 10:57 Completed EKG (ED ONLY) *Do not use* NOW Care 01/10/25 09:30 Completed Insert IV NOW Care 01/10/25 11:14 Active Miscellaneous Nursing Order NOW Care 01/10/25 10:41 Active Strict Intake and Output Routine Care 01/10/25 10:[address] abdomen pelvis wo con Stat Exams 01/10/25 09:[address] head/brain wo con Stat Exams 01/10/25 09:30 Completed EKG (ED Only) Stat Exams 01/10/25 09:30 Draft XR chest 1V SEPSIS PROTOCOL Stat Exams 01/10/25 10:56 Completed Alcohol, Blood Medical Stat Lab 01/10/25 09:40 Completed Ammonia Stat Lab 01/10/25 09:40 Completed Blood Culture (Lab) Stat Lab 01/10/25 11:00 Received CBC Stat Lab 01/10/25 09:40 Completed Comprehensive Metabolic Panel Stat Lab 01/10/25 09:40 Completed Drug Screen,Urine Stat Lab 01/10/25 11:37 Completed Ketone [Beta Hydroxybutyrate] Stat Lab 01/10/25 11:10 Completed Lactate (Lactic Acid) Stat Lab 01/10/25 11:10 Completed Lipase Stat Lab 01/10/25 09:40 Completed Magnesium Stat Lab 01/10/25 09:40 Completed Partial Thromboplastin Time Stat Lab 01/10/25 09:40 Completed Procalcitonin Stat Lab 01/10/25 11:10 Completed Prothrombin Time with INR Stat Lab 01/10/25 09:40 Completed Troponin I Stat Lab 01/10/25 09:40 Completed Urinalysis, C/S if Indicated Stat Lab 01/10/25 11:37 Completed VBG [Venous Blood Gas] Stat Lab 01/10/25 11:10 Completed Insulin Regular Med 01/10/25 11:57 Discontinued 7 unit IV X1 ONE Morphine* Inj Med 01/10/25 12:17 Discontinued 2 mg IVP Q30M PRN Ondansetron Inj [Zofran Inj] Med 01/10/25 12:18 Discontinued 4 mg IVP X1 ONE Sodium Chloride 0.9% 1000 ml [Ns] 1,000 ml Med 01/10/25 10:54 Discontinued IV 999 mls/hr Vital Signs Vital signs: Vital Signs Temperature 98.3 F 01/10/25 09:20 Pulse Rate 101 H 01/10/25 09:20 Respiratory Rate 18 01/10/25 09:20 Blood Pressure 130/84 01/10/25 09:20 Pulse Oximetry (%) 98 01/10/25 09:20 Oxygen Delivery Method Room Air 01/10/25 09:20 Pulse ox is 98% on room air which is adequate. Abdominal Pain MDM MDM Narrative MDM Narrative:: This section includes all my notes and documentations, including HPI, PE, and ED course. Lang Lewis MD ? ? HPI: 59 year old male with history of hypertension, diabetes, prior carcinoid tumor resection, BPH presents to the ED for evaluation of abdominal pain beginning 3 days ago. Reports history of carcinoid syndrome (x several years) and presentation today similar to prior flare ups. Pain described as aching in sensation, rating 10/10 in severity. Accompanied by nausea and vomiting. Additionally reports he had an appointment scheduled with his PCP Dr. Rosario today. Evidently while in the office was not making sense and sent here for further evaluation. Patient reports his had also told him he was not making sense 2 days ago. Denies any numbness/tingling, change in speech, gait, or unilateral weakness. Denies fevers, chills, chest pain, cough, shortness of breath, or urinary symptoms. ? ROS: All negative except as documented in HPI. ? Physical Exam: GENERAL APPEARANCE:? alert and oriented x 4, well-developed, well-nourished, no acute distress VITALS: All vitals were reviewed and the pulse ox is % on room air, which is normal according to my interpretation. HEENT: Normocephalic, atraumatic; pupils equal, round, reactive to light; EOMI; mucous membranes pink, moist; oropharynx clear NECK: Supple LUNGS: CTABL; no wheezes, no rales, no rhonchi HEART: Regular rate, regular rhythm; normal S1, S2; no murmurs ABDOMEN: non distended; normal BS;? soft, no tenderness, no guarding, no rebound; no masses, no organomegaly, no hernia?? BACK:? no CVA tenderness EXTREMITIES:? atraumatic; no edema NEUROLOGIC: awake; slow answer questions however is alert and oriented x4; cranial nerves II-XII grossly intact; no focal sensory or motor deficits PSYCHIATRIC:? appropriate mood and affect SKIN: warm, dry, normal color; no rashes ? I reviewed all diagnostic test results: My interpretation of the chest x-ray is nml diaphragmatic edge, sharp costophreic angles, nml cardiac silhouette, no infiltrates . My review of the abdomen/pelvis CT is: Perinephric stranding, consider urinary tract infection, no bowel obstruction My review of the head CT report is: No intracranial bleeding My interpretation of EKG @ 0942h sinus tachycardia,. rate 102, left axis deviation, no ectopy, no signs of acute ischemia. Blood tests and urine test: CBC within normal limits, VBG ph 7.31 but normal pCO2, sodium 129 (pseudohyponatremia), glucose 543, urinalysis no signs of infection. At this point, diagnoses include: AMS, renal insufficiency, hyperglycemia and pseudohyponatremia ? Treatment here included: 1L IV normal saline, Insulin, Morphine, and Zofran ? I discussed the case with our hospitalist.? About the presentation and exam and diagnostics and treatments here and need of further care in the hospital.? Will accept the patient. Patient data External records reviewed:: [facility] previous records Clinical information provided by:: patient Social determinants that could affect healthcare access:: none Patient has the following chronic illnesses:: hypertension, diabetes, prior carcinoid tumor resection, BPH How is presenting disease/condition affected by chronic disease/condition?: exacerbated by Evaluation data The following diagnostics were reviewed and interpreted by me:: lab results, radiology exam(s) and EKG tracing(s) Lab and/or radiology exams considered but not ordered:: None Interpretation Summary: See MDM Medications / Prescriptions Medications or Prescriptions considered but not ordered:: None Medication administrations:: Medication Administration History Acetaminophen (Acetaminophen 325 Mg Tablet) 650 mg PO Q6H PRN PRN Reason: Fever >101.5 or pain 1-3 Stop: 02/09/25 14:03 Hydrocodone Bitart/Acetaminophen (Hydrocodone/Apap 10/325 Tab) 1 tab PO Q6HR PRN PRN Reason: Pain 4-10 Stop: 01/15/25 14:53 Dextrose (Dextrose 50%-Water Inj 50 Ml Syringe) 25 ml IV Q15MIN PRN PRN Reason: BG 50-70 responsive npo pt Stop: 02/09/25 14:38 Dextrose (Dextrose 50%-Water Inj 50 Ml Syringe) 50 ml IV Q15MIN PRN PRN Reason: BG <50 OR BG <70 & pt unresponsive Stop: 02/09/25 14:38 Gabapentin (Gabapentin 100 Mg Capsule) 100 mg PO TID YOBANI Stop: 02/09/25 21:59 Glucagon (Glucagon Inj 1 Mg Vial) 1 mg IM Q15MIN PRN PRN Reason: BG <70, and no IV access Heparin Sodium (Porcine) (Heparin Sod Inj 5000 Unit/Ml Vial) 5,000 unit SC BID YOBANI Stop: 01/24/25 20:59 Sodium Chloride (Ns) 1,000 mls @ 100 mls/hr IV .Q10H ONE Stop: 01/11/25 00:40 Insulin Degludec (Insulin Degludec 5 Unit/0.05 Ml (Per 5 Units)) 30 unit SC X1 ONE Stop: 01/10/25 21:01 Insulin Human Regular (Insulin Hum Regular 1 Unit/0.01 Ml (Per Unit)) 0 unit SC AC YOBANI; Protocol Stop: 02/09/25 16:59 Nifedipine (Nifedipine Xl 30 Mg Tabcr) 30 mg PO QDAY PRN PRN Reason: Take if SBP 140 or higher Stop: 02/10/25 08:59 Ondansetron HCl (Ondansetron Inj 2 Mg/Ml Inj 2 Ml) 4 mg IVP Q6H PRN; Protocol PRN Reason: NAUSEA OR VOMITING Stop: 02/09/25 14:03 Tizanidine HCl (Tizanidine Hcl 2 Mg Tablet) 2 mg PO TID PRN PRN Reason: Muscle spasm Stop: 02/09/25 21:59 Discontinued Medications Sodium Chloride (Ns) 1,000 mls @ 999 mls/hr IV .Q1H1M ONE Stop: 01/10/25 11:54 Last Infusion: 01/10/25 12:11 Dose: Infused Documented By: Admin: 01/10/25 11:16 Dose: 999 mls/hr Documented By: DB Insulin Degludec (Insulin Degludec 5 Unit/0.05 Ml (Per 5 Units)) 20 unit SC X1 ONE Stop: 01/10/25 14:50 Insulin Human Regular (Insulin Hum Regular 1 Unit/0.01 Ml (Per Unit)) 7 unit IV X1 ONE Stop: 01/10/25 11:58 Last Admin: 01/10/25 12:10 Dose: 7 unit Documented By: DB Co-signed By: ER Morphine Sulfate (Morphine Sulf Inj 4 Mg/Ml Vial) 2 mg IVP Q30M PRN PRN Reason: PAIN Stop: 01/11/25 12:16 Last Admin: 01/10/25 14:20 Dose: 2 mg Documented By: Admin: 01/10/25 12:28 Dose: 2 mg Documented By: ER Ondansetron HCl (Ondansetron Inj 2 Mg/Ml Inj 2 Ml) 4 mg IVP X1 ONE; Protocol Stop: 01/10/25 12:19 Last Admin: 01/10/25 12:28 Dose: 4 mg Documented By: ER See above Consultations Consultation(s) initiated? (list below): Yes Consultation #1 (Physician, Specialty, Details): I spoke with hospitalist team B regarding admission. Diagnosis Differential diagnosis abdominal pain: abdominal pain, calculus of kidney, constipation, gastroenteritis and small bowel obstruction Most likely diagnosis given after review of the tests above:: AMS, renal insufficiency, hyperglycemia Admission Indicated Admission indicated?: indicated Admission Request Was there a request for admission?: Yes Admission Attestation Admission request attestation: Discussed case with [] from Hospitalist service regarding admission. Discussed patients ED course, exam findings, labs, and radiology results. The Hospitalist [agrees,declines] to accept the patient for admission. Disposition Plan Disposition Plan: Admit Discharge Plan Plan Patient Disposition: Admit Acute Care w/in Hospital Problem List Clinical Impression: Altered mental status, Renal insufficiency, Hyperglycemia
--- NOTE | 2025-01-10 10:56 | XR_ITS ---
Examination: AP chest single view Technique : AP portable upright chest single view Date and time: January 10, 2025 11:10 AM, comparison December 26, 2024 INDICATION: Sepsis alert, SOB today. FINDINGS: Normal heart size. No lobar pneumonia Stable pleural thickening along the right lateral thoracic wall No pulmonary edema. Prominent osteopenia, bilateral old rib fractures IMPRESSION: No pneumonia or pulmonary edema
[2025-01-10 11:13] VITALS: PULSE 98
[2025-01-10] MEDS: SODIUM CHLORIDE 0.9% 1000 ML 1,000 ML 999 ML IV (11:16)
[2025-01-10 11:32] LABS: Lactate (Lactic Acid) 2.5 mMol/L (0.4-2.0)
[2025-01-10 11:33] LABS: Base Excess, Venous -5 (-3-3); O2 Saturation, Venous 67 % (96-97); PCO2, Venous 44 mmHg (36-56); PO2, Venous 38 mmHg (15-58); pH, Venous 7.31 (7.33-7.66)
[2025-01-10 11:42] LABS: Beta Hydroxybutyrate 0.5 mmol/L (<0.6)
[2025-01-10 11:42] LABS: Collection Type, Urine Clean Catch; Squamous Epithelial Cell,Urine 0 /hpf (0-5)
[2025-01-10 12:07] LABS: Bilirubin,Urine Negative (Negative); Blood,Urine 1+ (Negative); Clarity,Urine Clear (Clear/Hazy); Color,Urine Lt-Yellow (Lt Yel-Yel); Culture Indicated,Urine Not Indicated; Glucose, Urine 4+ (Negative); Ketones,Urine Negative (Negative); Leukocyte Esterase,Urine Negative (Negative); Nitrite,Urine Negative (Negative); PH,Urine 6.0 (5.0-7.0); Protein,Urine 1+ (Neg - Trace); RBC,Urine 14 /hpf (0-3); Specific Gravity,Urine 1.039 (1.001-1.035); Urobilinogen,Urine Negative mg/dL (0.0-1.0); WBC,Urine < 1 /hpf (0-5)
[2025-01-10 12:08] LABS: Amphetamine/Methamp Scrn,U Negative (Negative); Barbiturate Screen,Urine Negative (Negative); Benzodiazepines Screen,Urine Negative (Negative); Benzoylecgonine Screen, Ur Negative (Negative); Fentanyl Screen,Urine Negative (Negative); Opiate Screen,Urine Positive (Negative); THC Screen,Urine Negative (Negative)
[2025-01-10] MEDS: INSULIN HUM REGULAR 1 UNIT/0.01 ML (PER UNIT) 7 UNIT IV (12:10)
[2025-01-10 12:11] LABS: Procalcitonin 0.26 ng/ml (0.0-0.49)
[2025-01-10] MEDS: MORPHINE SULF INJ 4 MG/ML VIAL 2 MG IVP ×2 (12:28→14:20)
[2025-01-10] MEDS: ONDANSETRON INJ 2 MG/ML INJ 2 ML 4 MG IVP (12:28)
[2025-01-10 12:34] VITALS: BP 115/83; PULSE 96; RESP 16; TEMP 36.8; O2SAT 95
--- NOTE | 2025-01-10 13:58 | ESHP_ITS ---
<Statement entered by Alfie Ni MD - 01/11/25 17:32> 59-year-old male with significant past medical history of type 2 diabetes mellitus, hypertension, hyperlipidemia, peripheral neuropathy, carcinoid syndrome status post resection presented to the hospital with chief complaints of incomprehensible speech noted by his since 3 days. Patient was recently admitted 2 weeks ago in view of dizziness and confusion. At that time patient was diagnosed to have polypharmacy causing acute encephalopathy and discharged with adjusting the medications. MRI head done at that time showed multiple punctate foci on cerebral white matter. Vitals are stable. Labs done during this admission is significant for glucose 543, creatinine 1.8, lactate 2.5. Patient was started on insulin, fluids, decrease the tizanidine dose to 2 mg 3 times daily as needed. Patient likely to have confusion due to uncontrolled diabetes mellitus and SHABBIR at this point of time. Will continue to monitor glucose levels and renal panel. I have personally seen and examined the patient, agree with residents assessment and plan Patient plan of care was discussed with the attending physician, Dr. James Ni, PGY2 Documentation for date of: 01/10/25 HPI History of Present Illness Chief complaint: Transient receptive aphasia History of present illness: Mr. Nunez is a 59-year-old male with a past medical history of T2DM, HTN, HLD, peripheral neuropathy, and carcinoid syndrome s/p resection who presents to [facility] ED on 01/10 from his PCPs clinic, Dr. Rosario, for difficulty with making comprehensible speech. The patient was admitted under observation for altered mental status and acute kidney injury. Patient is a poor historian, so some history was obtained from chart review and the patient's over the phone. On 01/07, the patient had strange changes in behavior that were similar to what brought him to the hospital on 12/26. The strange behaviors would happen on and off until the admission on 01/10. According to the , the patient was behaving oddly, doing things such as trying to turn down the TV volume with his phone, using a spoon as his TV remote, and defecating on himself twice without any care at all about what had happened. In addition to these odd behaviors, the patient would periodically have episodes of incomprehensible speech where the words make sense, but it lacks appropriate context. On 01/10, the patient attempted to see his PCP for follow-up from previous hospitalization and to obtain referral to neurology, but was told to go to [facility] ED as his speech continued to make no sense even though he was saying proper words. The patient was recently admitted back in 12/26/2024 for a month of progressive fatigue, dizziness, and confusion. The patient was found to have orthostatic hypotension and it was thought that the patient's polypharmacy was the cause of the patient's acute encephalopathy. MRI head obtained during that visit showed multiple punctate foci in cerebral white matter. Neurology was consulted at that time, and acute stroke was not suspected, and recommended follow-up outpatient. The patient was discharged with several changes to medications, including discontinuations of lisinopril and benazepril, however according to the patient's , the patient had not changed any of his medications since being discharged as he wanted to talk to his PCP first. Patient endorses headache, diarrhea, and abdominal pain. Patient denies chest pain, fevers, and shortness of breath. ED course: Initial vitals were significant for heart rate of 101. Initial labs were significant for sodium of 129, chloride 94, creatinine 1.8, glucose 543, lactic acid 2.5, and VBG pH 7.31. Repeat lactic acid about 4 hours later is 1.5 Additionally, nonsignificant labs of note are troponin less than 0.020, beta- hydroxybutyrate 0.5, ammonia less than 10, lipase 28, and procalcitonin 0.26. CT abdomen/pelvis shows no acute findings. CT head negative. Chest x-ray shows no pneumonia or pulmonary edema, prominent osteopenia with bilateral old rib fractures. ED gave 1 L NS and 7 units of regular insulin. Past Surgical History: Spinal fusion surgery, left leg surgery Allergies (w/ Reactions): NKDA Family History: - Mother: Cancer, unspecified - Father: Renal failure - Siblings: Noncontributory - Daughter: Seizures, unspecified Occupation: Retired Alcohol Intake: Patient denies Tobacco/Vape Use: Patient denies Other Drug Use: Patient denies Recent Travel History: Patient denies Review of Systems Review of Systems Systems Reviewed: All systems reviewed, normal except as documented Exam Vital Signs Temp Pulse Resp BP Pulse Ox O2 Del Method 98.3 F 96 16 115/83 95 Room Air 01/10/25 12:34 01/10/25 12:34 01/10/25 12:34 01/10/25 12:34 01/10/25 12:34 01/10/25 12:34 Narrative Exam Physical Exam: General: Alert, no acute distress. Skin: Warm, dry, intact. Head: Normocephalic, atraumatic. Eye: Normal conjunctiva, PERRL. Cardiovascular: Regular rate and rhythm, no murmur, +S1/S2. Respiratory: Lungs are clear to auscultation, respirations unlabored, no crackles, no wheezing. Gastrointestinal: Soft, diffusely tender to palpation, non-distended. No guarding or rebound tenderness. Extremities: No edema, no cyanosis, no clubbing. 2+ radial pulse bilaterally, 2+ pedal pulse bilaterally. Neuro: No focal deficits observed. Conversant, moving all extremities. No overt cerebellar signs/incoordination. Psychiatric: Cooperative, appropriate affect. Results: Labs 01/12/25 04:12 01/12/25 04:12 Labs: Short CBC 01/10/25 Range/Units 09:40 WBC 5.1 (3.8-10.6) Thou/mm3 Hgb 14.7 (13.5-16.0) g/dL Hct 43.5 (41.0-53.0) % Plt Count 318 (140-440) Thou/mm3 BMP 01/10/25 09:40 Sodium 129 L Potassium 5.1 Chloride 94 L Carbon Dioxide 23.4 BUN 23 Creatinine 1.8 H Glucose 543 H* Calcium 9.4 Cardiac Enzymes 01/10/25 Range/Units 09:40 Troponin I < 0.020 (0.0-0.045) ng/mL Liver Function 01/10/25 Range/Units 09:40 Total Bilirubin 0.5 (0.3-1.2) mg/dL AST 13 (0-34) U/L ALT 13 (10-49) U/L Alkaline Phosphatase 74 (46-116) U/L Albumin 4.3 (3.5-5.0) gm/dL Urine 01/10/25 Range/Units 11:37 Urine Color Lt-Yellow (Lt Yel-Yel) Urine Clarity Clear (Clear/Hazy) Urine pH 6.0 (5.0-7.0) Ur Specific [place] 1.039 H (1.001-1.035) Urine Protein 1+ A (Neg - Trace) Urine Glucose (UA) 4+ A (Negative) ABG Interpretation ABG results: 01/10/25 11:10 VBG pH 7.31 L VBG pCO2 44 VBG pO2 38 VBG Base Excess -5 L Quality Measures Quality Measures VTE prophylaxis Medications Home Medications and Allergies Home Medications ?Medication ?Instructions ?Recorded ?Confirmed ?Type insulin detemir U-100 100 unit/mL 40 unit subcut BID 0 08/19/18 01/10/25 History (3 mL) subcutaneous pen (Levemir FlexTouch U-100 Insulin) buspirone 15 mg tablet 15 mg PO TID 11/22/20 History hydrocodone 10 mg-acetaminophen 1 tab PO Q6HR 12/19/21 01/10/25 History 325 mg tablet gabapentin 100 mg capsule 100 mg PO TID 03/25/2401/10 History simvastatin 40 mg tablet 40 mg PO QDAY 03/25/2401/10 History tamsulosin 0.4 mg capsule 0.4 mg PO DAILY 01/10/2512/27 History Allergies Allergy/AdvReac Type Severity Reaction Status Date / Time No Known Allergies Allergy Verified 01/10/25 09:16 Visit Medications Morphine Sulfate (Morphine Sulf Inj 4 Mg/Ml Vial) 2 mg IVP Q30M PRN PRN Reason: PAIN Stop: 01/11/25 12:16 Last Admin: 01/10/25 12:28 Dose: 2 mg Discontinued Medications Sodium Chloride (Ns) 1,000 mls @ 999 mls/hr IV .Q1H1M ONE Stop: 01/10/25 11:54 Last Infusion: 01/10/25 12:11 Dose: Infused Insulin Human Regular (Insulin Hum Regular 1 Unit/0.01 Ml (Per Unit)) 7 unit IV X1 ONE Stop: 01/10/25 11:58 Last Admin: 01/10/25 12:10 Dose: 7 unit Ondansetron HCl (Ondansetron Inj 2 Mg/Ml Inj 2 Ml) 4 mg IVP X1 ONE; Protocol Stop: 01/10/25 12:19 Last Admin: 01/10/25 12:28 Dose: 4 mg Assessment & Plan Plan Mr. Nunez is a 59-year-old male with a past medical history of T2DM, HTN, HLD, peripheral neuropathy, and carcinoid syndrome s/p resection who presents to [facility] ED on 01/10 from his PCPs clinic, Dr. Rosario, for difficulty with making comprehensible speech. The patient was admitted under observation for altered mental status and acute kidney injury. #Acute encephalopathy, intermittent #Receptive aphasia Patient has a history of altered mental status and was previously hospitalized in part due to his acute encephalopathy back in 12/26. At the time, it was thought that it was due to polypharmacy, so the dosage of the patient's tizanidine was decreased. However the patient never followed up on this, and the patient was noted to have return of his acute encephalopathy on 01/07 with new symptoms of receptive aphasia. The patient's symptoms are intermittent, and the patient was advised to come to [facility] ED by his PCP. MRI head done on 12/28 was only positive for multiple punctate foci in cerebral white matter. Suspicion for acute CVA is low. Plan: Decrease home tizanidine dose to 2 mg 3 times daily as needed Neurology consulted, appreciate recommendations EEG ordered, pending #Acute kidney injury, likely prerenal, improving Patient presented with creatinine of 1.8, baseline creatinine of 1.0. The cause is most likely prerenal secondary to poor oral intake given recent confusion. Repeat renal panel at around 1500 01/10 shows improvement after 1 L NS in the ED. Plan: Continue to monitor with daily renal panel Avoid nephrotoxic drugs, renally dose medications 1 L NS ordered 01/10 #Insulin-dependent type 2 diabetes mellitus Patient has a history of insulin-dependent type 2 diabetes mellitus. The patient takes 40 units of Levemir in the morning and 40 units at night. The patient presented with a blood glucose of 543, which is likely secondary to poor compliance with insulin over the past few days given intermittent altered mental status. The patient states that he took his insulin on the morning of 01/10, but according to the patient's , he did not. Low suspicion for DKA on admission given stable anion gap and beta hydroxybutyrate within normal range. Plan: Sliding scale insulin step 2 One-time dose insulin degludec 20 units on admission, one-time dose insulin degludec 30 units 01/10 in evening, will reassess insulin regimen on 01/11 Carbohydrate consistent diet #Peripheral neuropathy #?Muscle spasms Patient does have a history of peripheral neuropathy, likely secondary to history of T2DM. Patient takes home gabapentin 100 mg 3 times daily for management of his neuropathy. Patient does also take tizanidine 3 times daily, but is unclear why. Comments on medication state for muscle spasms, but that tizanidine may be contributing to the patient's encephalopathy. Plan: Resumed home gabapentin 100 mg 3 times daily Resumed patient's tizanidine at a lower dose, 2 mg 3 times daily as needed for muscle spasms #History of carcinoid syndrome status post resection Patient does have a history of carcinoid syndrome. The patient constantly refers to his carcinoid syndrome and is unclear if the patient is aware that he has had surgery in the past to manage his carcinoid syndrome. Per chart review, the patient had carcinoid tumor resection. Patient does not appear to have any symptoms of carcinoid syndrome at this moment except for endorse history of diarrhea recently. Patient states that he takes tizanidine for his carcinoid syndrome, however this is unclear as to why. Plan: Continue to monitor for symptoms Low-fat diet modification Patient to follow-up outpatient #Primary hypertension Patient does have a history of hypertension. In the past, the patient was prescribed lisinopril for management of his hypertension, but was instructed to discontinue taking the lisinopril as he was admitted with SHABBIR in the past. The patient was not compliant with these instructions and wanted to discuss with his PCP before changing medications, and so he has been consistent with taking lisinopril even though he was directed not to. Plan: Continue to hold ACEI given SHABBIR Per previous discharge recommendations, ordered nifedipine 30 mg daily as needed if systolic blood pressure 140 or higher #Hyperlipidemia Patient has a history of hyperlipidemia, to which he takes simvastatin 40 mg at home for management. Plan: Lipid panel ordered, pending Patient to follow-up outpatient DVT Prophylaxis: Heparin GI Prophylaxis: N/A Bowel: N/A Diet: Consistent carb, low fat Muniz: N/A Lines: Peripheral IV Antibiotics: N/A Code Status: FULL Reason for Hospitalization: AMS & SHABBIR Other Barriers to Discharge: EEG, neurology consult Patient plan of care was discussed with the senior resident Dr. Ni (PGY-2) and attending physician Dr. James Spicer, PGY1 Attending Provider Attestation/Addendum Face to face evaluation was performed by me. I have personally seen and examined the patient. I discussed the assessment and plan with the entire medicine team. I reviewed available medical records, imaging studies, laboratory results. I agree with the above subjective data, objective findings, assessment and plan except as corrected by me or noted below Transient acute encephalopathy History of multiple punctuate white matter changes on brain MRI Type 2 diabetes requiring chronic insulin therapy with hyperglycemia patient presented to the emergency room with what sounds like transient mentation changes which is not new. Last time patient had MRI brain neurology was consulted recommended to consider EEG?obtain patient for EEG consult neurology adjust all medications may be started with decreasing tizanidine dosage for now and making it as needed. - More than > 30 minutes spent on the encounter
[2025-01-10 14:25] LABS: Reflex Lactate? Y
[2025-01-10 14:59] LABS: Lactic Acid, 3 HR 1.5 mMol/L (0.4-2.0)
[2025-01-10 15:20] LABS: Albumin, Serum 4.3 gm/dL (3.5-5.0); Anion Gap 13 (7-16); BUN/Creatinine Ratio 15 Ratio (12-20); Blood Urea Nitrogen 21 mg/dL (9-23); Calcium 8.7 mg/dL (8.3-10.6); Calcium (Corrected) 8.7 mg/dL (8.5-10.1); Carbon Dioxide 19.8 mMol/L (20.0-31.0); Chloride 101 mMol/L (98-107); Creatinine (Component) 1.4 mg/dL (0.6-1.3); Estimated Creatinine Clearance 61.4 mL/min (>60); Glucose 333 mg/dL (74-106); Osmolality,Calculated 284 (275-295); Phosphorous 3.5 mg/dL (2.4-5.1); Potassium 4.4 mMol/L (3.4-5.1); Sodium 134 mMol/L (136-145); eGFR 58 See Note
[2025-01-10] MEDS: INSULIN DEGLUDEC 5 UNIT/0.05 ML (PER 5 UNITS) 20 UNIT SC (15:50)
[2025-01-10] MEDS: SODIUM CHLORIDE 0.9% 1000 ML 1,000 ML 100 ML IV (15:50)
[2025-01-10 16:21] VITALS: BP 133/97; PULSE 97; RESP 16; TEMP 37; O2SAT 96
--- NOTE | 2025-01-10 17:05 | PC.NURSE ---
@[id number] Report received from RON Martin.
--- NOTE | 2025-01-10 17:13 | PD.RESCONSUL ---
HPI Data of Consult Consult date: 01/10/25 Requesting Physician: Shawn Ramirez MD Admitting Provider: Shawn Ramirez MD Attending Provider: Shawn Ramirez MD Primary Care Provider: Armin Rosario MD Consult Narrative Reason for consult: confusion, expressive aphasia History of present illness: This patient is a 59-year-old male with past medical history of type 2 diabetes, hypertension, hyperlipidemia, neuropathy and carcinoid syndrome presented to the ED on 01/10/2025 from his PCP office named Dr. Rosario with difficulty with making comprehensible speech. Patient endorsed vomiting and loose stools from past couple of days. He also endorsed abdominal discomfort mainly generalized. Per primary team, patient's has been concerned for changes in patient's behavior that were noticed on previous admission on 12/26. He was seen by his doing art things including trending down TV volume with his phone, using spoon as his TV remote and defecating on himself twice and not caring about it. In addition to these odd behaviors, patient was periodically having episodes of incomprehensible speech. Patient was trying to get a referral to neurology for follow-up from his PCP however due to his continued altered behavior patient was sent to the ED. Of note, patient was admitted on 12/22/2024 with progressive fatigue, dizziness and confusion lasting for a month. He was found to have orthostatic hypotension likely attributed to polypharmacy leading to acute encephalopathy. MRI at that time only showed multiple punctate foci in central white matter. At that time, acute stroke was not suspected. Medications were optimized before discharge with discontinuation of lisinopril and benazepril however patient was still taking his medications like previously. In the ED, patient was tachycardic 101 with blood pressure 130/84. Labs revealed WBC 5.1, hemoglobin 14.7, platelet count 318. INR 1.0. VBG is normal Chemistry panel revealed sodium of 129-> 134, chloride 94-> 101, bicarb 19.8. Creatinine 1.8--> 1.4, glucose 543--> 333, lactic acid 2.5--> 1.5. Additionally, nonsignificant labs of note are troponin less than 0.020, beta-hydroxybutyrate 0.5, and procalcitonin 0.26. Serum ammonia less than 10. Lipase was negative. Urinalysis showed proteins, glucose and blood. U tox positive for opiates. CT abdomen/pelvis shows no acute findings. CT brain showed no acute changes. Chest x-ray shows no pneumonia or pulmonary edema, prominent osteopenia with bilateral old rib fractures. ED gave 1 L NS and 7 units of regular insulin. PMH: As above PSH: Spinal fusion surgery x 2, left leg surgery Allergies: No known drug allergies SH: Denies drinking alcohol, smoking cigarettes or vape. No history of illicit drug use. Family history: Mother with cancer and father has renal failure. Daughter has seizures history Home medications:Nifedipine 30 mg as needed if systolic above 140, tamsulosin 0.4 mg, simvastatin 40 mg, gabapentin 100 mg 3 times daily, tizanidine 4 mg 3 times daily, [place] 10/325 every 6 hourly as needed, insulin 80 units daily, buspirone 15 mg 3 times daily Recommended to continue half dose of tizanidine for back pain for pain management, hold off on benzodiazepines and perform EEG to evaluate for seizure-like activity. No need of repeat MRI at this point. Need Good control of blood sugars with insulin therapy. Anticipate improvement of SHABBIR with IV fluid resuscitation. cc:: cc: Shawn Ramirez MD Review of Systems Review of Systems Systems Reviewed: All systems reviewed, normal except as documented Past Medical History Past Medical History NEUROLOGIC: Positive Peripheral Neuropathy CARDIAC: Positive Hypercholesterolemia and Hypertension GASTROINTESTINAL: Positive Gastrointestinal Disorders, Gall Bladder Disease and Gastroesophageal Reflux Disease GENITOURINARY: Positive Genitourinary Disorders MUSCULOSKELETAL: Positive Musculoskeletal Disorders and Arthritis ENDOCRINE: Positive Endocrine Disorders and Diabetes Mellitus Type 2 PSYCHO/SOCIAL: Positive Depression and Anxiety Family History FAMILY HISTORY: Negative Family Psychiatric Problems, Family Respiratory Disorders, Family Cardiac Disorders, Family Gastrointestinal Problems, Family Cancer, Family Surgery or Family Anesthesia Reaction Surgical History SURGICAL: Positive Abdominal Surgery and Joint Replacement Social History SMOKING STATUS: Never smoker Exam Vital Signs Temp Pulse Resp BP Pulse Ox O2 Del Method 98.6 F 97 16 133/97 H 96 Room Air 01/10/25 16:21 01/10/25 16:21 01/10/25 16:21 01/10/25 16:21 01/10/25 16:21 01/10/25 16:21 Narrative Exam GENERAL APPEARANCE: AxOx4, generally well-appearing male in no acute distress. HEENT: NC, AT. MMM. EOMI, clear conjunctiva, oropharynx clear. NECK: Supple without lymphadenopathy. No stiffness or restricted ROM. HEART: Sinus tachycardia with regular rhythm, normal S1/S2, no m/r/g LUNGS: CTAB, moving air well. No crackles or wheezes are heard. ABDOMEN: Soft, mild diffuse abdominal tenderness, nondistended with good bowel sounds heard. BACK: No CVAT, no obvious deformity. EXTREMITIES: Without cyanosis, clubbing or edema. NEUROLOGICAL: Alert, awake and oriented x3. Cranial nerves: II through XII grossly intact. No nystagmus noted. Speech and language: Normal with receptive aphasia. Motor system: Tone and bulk: Normal: Strength: 5 out of 5 in all 4 extremities; No pronator drift noted. Deep tendon reflexes: 2+ bilaterally symmetrical. Plantar reflex: Downgoing bilaterally. Sensory system: Intact to all modalities of sensation bilaterally. Coordination: Intact to [id number] and wsvm-wyfq-heto test bilaterally. No ataxia, no dysmetria, or dysdiadochokinesia noted. No intention tremors noted. Gait: Normal. Toe, heel, tandem walk all are normal. Romberg: Negative. No signs of meningeal irritation noted. Skin: Warm and dry without any rash. Psych: Receptive aphasia however not in anxiety Results Labs 01/11/25 04:50 01/11/25 04:50 Labs: Short CBC 01/10/25 Range/Units 09:40 WBC 5.1 (3.8-10.6) Thou/mm3 Hgb 14.7 (13.5-16.0) g/dL Hct 43.5 (41.0-53.0) % Plt Count 318 (140-440) Thou/mm3 BMP 01/10/25 01/10/25 09:40 14:55 Sodium 129 L 134 L Potassium 5.1 4.4 D Chloride 94 L 101 Carbon Dioxide 23.4 19.8 L BUN 23 21 Creatinine 1.8 H 1.4 H Glucose 543 H* 333 H D Calcium 9.4 8.7 Cardiac Enzymes 01/10/25 Range/Units 09:40 Troponin I < 0.020 (0.0-0.045) ng/mL Liver Function 01/10/25 01/10/25 Range/Units 09:40 14:55 Total Bilirubin 0.5 (0.3-1.2) mg/dL AST 13 (0-34) U/L ALT 13 (10-49) U/L Alkaline Phosphatase 74 (46-116) U/L Albumin 4.3 4.3 (3.5-5.0) gm/dL Urine 01/10/25 Range/Units 11:37 Urine Color Lt-Yellow (Lt Yel-Yel) Urine Clarity Clear (Clear/Hazy) Urine pH 6.0 (5.0-7.0) Ur Specific [place] 1.039 H (1.001-1.035) Urine Protein 1+ A (Neg - Trace) Urine Glucose (UA) 4+ A (Negative) ABG Interpretation ABG results: 01/10/25 11:10 VBG pH 7.31 L VBG pCO2 44 VBG pO2 38 VBG Base Excess -5 L Quality Measures Quality Measures VTE prophylaxis (Heparin sc) Medications Home Medications and Allergies Home Medications ?Medication ?Instructions ?Recorded ?Confirmed ?Type insulin detemir U-100 100 unit/mL 40 unit subcut BID 08/19/18 01/10/25 History (3 mL) subcutaneous pen (Levemir FlexTouch U-100 Insulin) tizanidine 4 mg capsule 4 mg PO TID muscle spasm 06/24/19 01/10/25 History buspirone 15 mg tablet 15 mg PO TID 11/22/20 01/10/25 History hydrocodone 10 mg-acetaminophen 1 tab PO Q6HR 12/19/21 01/10/25 History 325 mg tablet gabapentin 100 mg capsule 100 mg PO TID 03/25/24 01/10/25 History simvastatin 40 mg tablet 40 mg PO QDAY 03/25/24 01/10/25 History tamsulosin 0.4 mg capsule 0.4 mg PO DAILY 01/10/25 01/10/25 History Allergies Allergy/AdvReac Type Severity Reaction Status Date / Time No Known Allergies Allergy Verified 01/10/25 09:16 Visit Medications Acetaminophen (Acetaminophen 325 Mg Tablet) 650 mg PO Q6H PRN PRN Reason: Fever >101.5 or pain 1-3 Stop: 02/09/25 14:03 Hydrocodone Bitart/Acetaminophen (Hydrocodone/Apap 10/325 Tab) 1 tab PO Q6HR PRN PRN Reason: Pain 4-10 Stop: 01/15/25 14:53 Dextrose (Dextrose 50%-Water Inj 50 Ml Syringe) 25 ml IV Q15MIN PRN PRN Reason: BG 50-70 responsive npo pt Stop: 02/09/25 14:38 Dextrose (Dextrose 50%-Water Inj 50 Ml Syringe) 50 ml IV Q15MIN PRN PRN Reason: BG <50 OR BG <70 & pt unresponsive Stop: 02/09/25 14:38 Gabapentin (Gabapentin 100 Mg Capsule) 100 mg PO TID YOBANI Stop: 02/09/25 21:59 Glucagon (Glucagon Inj 1 Mg Vial) 1 mg IM Q15MIN PRN PRN Reason: BG <70, and no IV access Heparin Sodium (Porcine) (Heparin Sod Inj 5000 Unit/Ml Vial) 5,000 unit SC BID YOBANI Stop: 01/24/25 20:59 Sodium Chloride (Ns) 1,000 mls @ 100 mls/hr IV .Q10H ONE Stop: 01/11/25 00:40 Last Admin: 01/10/25 15:50 Dose: 100 mls/hr Insulin Degludec (Insulin Degludec 5 Unit/0.05 Ml (Per 5 Units)) 30 unit SC X1 ONE Stop: 01/10/25 21:01 Insulin Human Regular (Insulin Hum Regular 1 Unit/0.01 Ml (Per Unit)) 0 unit SC AC [facility], 1928–1983; Protocol Stop: 02/09/25 16:59 Nifedipine (Nifedipine Xl 30 Mg Tabcr) 30 mg PO QDAY PRN PRN Reason: Take if SBP 140 or higher Stop: 02/10/25 08:59 Ondansetron HCl (Ondansetron Inj 2 Mg/Ml Inj 2 Ml) 4 mg IVP Q6H PRN; Protocol PRN Reason: NAUSEA OR VOMITING Stop: 02/09/25 14:03 Tizanidine HCl (Tizanidine Hcl 2 Mg Tablet) 2 mg PO TID PRN PRN Reason: Muscle spasm Stop: 02/09/25 21:59 Discontinued Medications Sodium Chloride (Ns) 1,000 mls @ 999 mls/hr IV .Q1H1M ONE Stop: 01/10/25 11:54 Last Infusion: 01/10/25 12:11 Dose: Infused Insulin Degludec (Insulin Degludec 5 Unit/0.05 Ml (Per 5 Units)) 20 unit SC X1 ONE Stop: 01/10/25 14:50 Last Admin: 01/10/25 15:50 Dose: 20 unit Insulin Human Regular (Insulin Hum Regular 1 Unit/0.01 Ml (Per Unit)) 7 unit IV X1 ONE Stop: 01/10/25 11:58 Last Admin: 01/10/25 12:10 Dose: 7 unit Morphine Sulfate (Morphine Sulf Inj 4 Mg/Ml Vial) 2 mg IVP Q30M PRN PRN Reason: PAIN Stop: 01/11/25 12:16 Last Admin: 01/10/25 14:20 Dose: 2 mg Ondansetron HCl (Ondansetron Inj 2 Mg/Ml Inj 2 Ml) 4 mg IVP X1 ONE; Protocol Stop: 01/10/25 12:19 Last Admin: 01/10/25 12:28 Dose: 4 mg Assessment & Plan Plan This patient is a 59-year-old male with a past medical history of T2DM, HTN, HLD, peripheral neuropathy, and carcinoid syndrome s/p resection who presents to [facility] ED on 01/10 from his PCPs clinic, Dr. Rosario, for difficulty with making comprehensible speech. The patient was admitted under observation for altered mental status and acute kidney injury. Recommended EEG from neurology standpoint. #Acute encephalopathy likely multifactorial #?Receptive aphasia DDx: Polypharmacy due to muscle relaxants, possible seizures, anxiety, advancing dementia, uncontrolled diabetes Patient has a history of altered mental status and was previously hospitalized in part due to his acute encephalopathy back in 12/26. At the time, it was thought that it was due to polypharmacy, so the dosage of the patient's tizanidine was decreased. However the patient never followed up on this, and the patient was noted to have return of his acute encephalopathy on 01/07 with new symptoms of receptive aphasia. The patient's symptoms are intermittent, and the patient was advised to come to [facility] ED by his PCP. MRI head done on 12/28 was only positive for multiple punctate foci in cerebral white matter. Suspicion for acute CVA is low. Head CT showed no acute changes. Patient presented with elevated blood sugars around 300. Vitals were stable. Patient was given insulin 7 units IV x 1. Serum ammonia less than 10. U tox was positive for opiates. Plan: No need of repeat MRI at this point due to low suspicion of stroke Recommended to perform an EEG awake and drowsy Decrease home tizanidine dose to 2 mg 3 times daily as needed Recommended to hold off benzos Recommended to manage blood sugars with insulin therapy #Peripheral neuropathy #?Muscle spasms Patient does have a history of peripheral neuropathy, likely secondary to history of T2DM. Patient takes home gabapentin 100 mg 3 times daily for management of his neuropathy. He takes tizanidine 3 times a day daily. Plan: Continue gabapentin 100 mg 3 times daily Continue tizanidine at a lower dose, 2 mg 3 times daily as needed for muscle spasms #SHABBIR, likely prerenal, improving #Lactic acidosis, resolved #Uncontrolled insulin-dependent type 2 diabetes mellitus #History of carcinoid syndrome status post resection #HTN #Hyperlipidemia Rest of the management as per primary care team. Patient was discussed with neurologist, Dr Flako Cabrera MD, PGY 3 Attending Provider Attestation/Addendum I did the virtual review of the chart and I agreed with resident's findings, assessment and plan of care. Imp: AMS: multifactorial: likely metabolic/polypharmacy Muscle spasms sec to DPN PLAN AND RECS: FU with EEG No need to repeat MRI brain as the last admission study showed nonspecific chronic microvascular angiopathy. Agreed with lowering the dose of Tizanidine and GP.
--- NOTE | 2025-01-10 17:40 | PC.NURSE ---
[id number] Patient to room via [employer]. A&Ox4, stable condition.
[2025-01-10] MEDS: INSULIN HUM REGULAR 1 UNIT/0.01 ML (PER UNIT) SC ×2 (17:53→21:05)
[2025-01-10 18:30] VITALS: BMI 29.6
[2025-01-10 20:00] VITALS: BP 146/95; PULSE 93; RESP 18; TEMP 36.7; O2SAT 92
[2025-01-10 20:03] VITALS: PULSE 95; RESP 16; RESP 96
[2025-01-10] MEDS: INSULIN DEGLUDEC 5 UNIT/0.05 ML (PER 5 UNITS) 30 UNIT SC (21:04)
[2025-01-10] MEDS: HEPARIN SOD INJ 5000 UNIT/ML VIAL SC (21:06)
[2025-01-10] MEDS: GABAPENTIN 100 MG CAPSULE PO (21:13)
[2025-01-11] VITALS (8 sets, daily range): BP systolic 104–161; BP diastolic 73–100; PULSE 81–95; RESP 16–96; TEMP 36.1–36.9; O2SAT 93–96
[2025-01-11] MEDS: GABAPENTIN 100 MG CAPSULE PO ×3 (05:25→21:08)
[2025-01-11 06:14] LABS: Basophils # (Auto) 0.0 Thou/mm3 (0.0-0.2); Basophils % (Auto) 1 % (0-2.5); Eosinophils # (Auto) 0.0 Thou/mm3 (0.0-0.5); Eosinophils % (Auto) 0 % (0-10); Hematocrit 40.5 % (41.0-53.0); Hemoglobin 13.3 g/dL (13.5-16.0); Immature Granulocytes Auto 0.01 Thou/mm3 (0.00-0.00); Lymphocytes # (Auto) 1.9 Thou/mm3 (1.0-4.8); Lymphocytes % (Auto) 26 % (10-50); Mean Corpuscular HGB Conc 32.8 g/dl (31.0-37.0); Mean Corpuscular Hemoglobin 30.9 pg (25.0-35.0); Mean Corpuscular Volume 94 fL (80-100); Monocytes # (Auto) 0.7 Thou/mm3 (0.0-0.8); Monocytes % (Auto) 10 % (0-12); Neutrophils # (Auto) 4.6 Thou/mm3 (1.8-7.7); Neutrophils % (Auto) 63 % (37-80); Nucleated Red Blood Cell # 0.00 Thou/mm3 (0.00-0.00); Nucleated Red Blood Cell % 0 /100 WBC (0); Platelet Count 305 Thou/mm3 (140-440); RDW Standard Deviation 43.8 fL (35.1-43.9); Red Blood Count 4.30 Miln/mm3 (4.50-5.90); White Blood Count 7.3 Thou/mm3 (3.8-10.6)
[2025-01-11 06:22] LABS: Glucose Estimated Average 232 mg/dL (80-131); Hemoglobin A1C 9.7 % Hgb (4.8-6.0)
[2025-01-11 06:48] LABS: Alanine Aminotransferase 11 U/L (10-49); Albumin, Serum 3.8 gm/dL (3.5-5.0); Albumin/Globulin Ratio 1.3 (1.2-2.2); Alkaline Phosphatase 59 U/L (46-116); Anion Gap 11 (7-16); Aspartate Amino Transferase 22 U/L (0-34); BUN/Creatinine Ratio 19 Ratio (12-20); Bilirubin,Total 0.4 mg/dL (0.3-1.2); Blood Urea Nitrogen 25 mg/dL (9-23); Calcium 9.0 mg/dL (8.3-10.6); Calcium (Corrected) 9.2 mg/dL (8.5-10.1); Carbon Dioxide 24.3 mMol/L (20.0-31.0); Cardiac Risk Estimate 5.2 RATIO (4.0-6.7); Chloride 102 mMol/L (98-107); Cholesterol 141 mg/dL (132-200); Creatinine (Component) 1.3 mg/dL (0.6-1.3); Estimated Creatinine Clearance 66.1 mL/min (>60); Globulin 2.9 gm/dL (2.3-3.5); Glucose 141 mg/dL (74-106); HDL Cholesterol 27 mg/dL (40-60); LDL Cholesterol,Calculated 52 mg/dL (0-130); Magnesium 2.1 mg/dL (1.6-2.6); Osmolality,Calculated 280 (275-295); Phosphorous 3.5 mg/dL (2.4-5.1); Potassium 4.6 mMol/L (3.4-5.1); Sodium 137 mMol/L (136-145); Total Protein 6.7 gm/dL (5.7-8.2); Triglycerides 308 mg/dL (30-150); eGFR > 60 See Note
[2025-01-11] MEDS: INSULIN HUM REGULAR 1 UNIT/0.01 ML (PER UNIT) SC (07:39)
[2025-01-11] MEDS: HEPARIN SOD INJ 5000 UNIT/ML VIAL SC ×2 (09:07→21:08)
[2025-01-11] MEDS: NIFEdipine XL 30 MG TABCR PO (09:07)
[2025-01-11] MEDS: SODIUM CHLORIDE 0.9% 1000 ML 1,000 ML 100 ML IV (09:08)
[2025-01-11] MEDS: INSULIN DEGLUDEC 5 UNIT/0.05 ML (PER 5 UNITS) 40 UNIT SC (09:20)
--- NOTE | 2025-01-11 09:21 | PC.SS ---
Patient Ethan Nunez is a 59 Years male admitted for Expressive Aphasia. SS met with patient at bedside to discuss discharge plan and verify demographic information. Patient appeared to be alert/oriented. Patient reports he utilizes a cane and Rollator walker to assist with ambulation. Patient is able to complete all ADL's independently. Choice of Pharmacy: [facility]. Discharge plan is to return home. Family will provide transportation. Alt medical decision maker: , Brittany, Discharge plan: Home PCP: Armin Rosario
--- NOTE | 2025-01-11 09:46 | ESPR_ITS ---
<Statement entered by Seth Carr MD - 01/11/25 14:22> Patient seen and assessed in hospital bed reporting improvement in expressive aphasia; however, patient notes that he has been having nausea, vomiting and diarrhea likely related to his carcinoid syndrome. Patient also made connection between his carcinoid syndrome flare with the expressive aphasia; however, unsure exactly if there is any truth to that. Continue to monitor the patient's mental status as it is currently stable; however, neurology is on board secondary to the stroke alert and we will follow-up on EEG. We will not obtain MRI as the patient has already had 1 recently which was largely negative for any acute findings other than punctate foci, possible demyelinating disease. Neurology aware of this finding and simply wanted outpatient workup and management. I have personally seen and examined the patient. I agree with the resident's assessment and plan as documented below. Seth Carr DO PGY-2 Internal Medicine - GME Documentation for date of: 01/11/25 Subjective Subjective Interval history: Overnight events: No acute events overnight. Patient was seen and examined at bedside. AM vitals and labs reviewed. Patient appears well today. No additional episodes of altered mental status noted, and no additional episodes of incomprehensible speech noted. Patient notes that he does remember soiling himself prior to admission, and stated that at the time he was very embarrassed and felt like he reacted appropriately to the situation. Patient does not feel that he is more confused than usual at home. The patient and his both state that the patient has not had any surgery in the past for management of his carcinoid syndrome. Interestingly, the patient was told that his carcinoid syndrome is incurable and not associated with any tumor. The patient takes tizanidine apparently for management of carcinoid syndrome symptoms, which is unclear as to how this would help. According to the patient, he used to see a GI specialist, but no longer sees one anymore and only sees his PCP for management of carcinoid syndrome. Overall, this does not appear to be a typical picture of carcinoid syndrome. A1c 9.7%, Cr 1.3 Pending EEG and further recommendations from neurology. Continue tizanidine 2 mg 3 times daily as needed and gabapentin 100 mg 3 times daily. Gave 1 L NS Gave 20 units insulin degludec this morning, plan for 60 units tonight, and will readjust insulin regimen for tomorrow depending on sliding scale. Review of systems otherwise negative except for what is mentioned above. Exam Vital Signs Temp Pulse Resp BP Pulse Ox O2 Del Method 97.1 F 87 17 143/100 H 94 L Room Air 01/11/25 08:00 01/11/25 09:07 01/11/25 08:00 01/11/25 09:07 01/11/25 08:00 01/11/25 08:00 Narrative Exam Physical Exam: General: Alert, no acute distress. Skin: Warm, dry, intact. Head: Normocephalic, atraumatic. Eye: Normal conjunctiva, PERRL. Cardiovascular: Regular rate and rhythm, no murmur, +S1/S2. Respiratory: Lungs are clear to auscultation, respirations unlabored, no crackles, no wheezing. Gastrointestinal: Soft, diffusely tender to palpation, non-distended. No guarding or rebound tenderness. Extremities: No edema, no cyanosis, no clubbing. 2+ radial pulse bilaterally, 2+ pedal pulse bilaterally. Neuro: No focal deficits observed. Conversant, moving all extremities. No overt cerebellar signs/incoordination. Psychiatric: Cooperative, appropriate affect. Objective Labs 01/11/25 04:50 01/11/25 04:50 Labs: Laboratory Results - last 24 hr 01/10/25 01/10/25 01/10/25 09:40 11:10 11:37 WBC 5.1 RBC 4.65 Hgb 14.7 Hct 43.5 MCV 94 MCH 31.6 MCHC 33.8 RDW Std Deviation 43.5 Plt Count 318 Neut % (Auto) 58 Lymph % (Auto) 25 [place] % (Auto) 15 H Eos % (Auto) 0 Baso % (Auto) 1 Neut # (Auto) 3.0 Lymph # (Auto) 1.3 [place] # (Auto) 0.8 Eos # (Auto) 0.0 Baso # (Auto) 0.0 Immature Gran # (Auto) 0.01 H Absolute Nucleated RBC 0.00 Immature Gran % 0 Nucleated RBC % 0 PT 10.6 INR 1.0 APTT 27.6 VBG pH 7.31 L VBG pCO2 44 VBG pO2 38 VBG O2 Sat (Amparo) 67 L VBG Base Excess -5 L Sodium 129 L Potassium 5.1 Chloride 94 L Carbon Dioxide 23.4 Anion Gap 12 BUN 23 Creatinine 1.8 H Estim Creat Clear Calc 47.8 L eGFR 43 L BUN/Creatinine Ratio 13 Glucose 543 H* Estimated Ave Glu mg/dL Hemoglobin A1c Calculated Osmolality 287 Lactic Acid 2.5 H Calcium 9.4 Corrected Calcium 9.4 Phosphorus Magnesium 2.3 Total Bilirubin 0.5 AST 13 ALT 13 Alkaline Phosphatase 74 Ammonia < 10 L Troponin I < 0.020 Total Protein 7.5 Albumin 4.3 Globulin 3.2 Albumin/Globulin Ratio 1.3 Triglycerides Cholesterol LDL Cholesterol, Calc HDL Cholesterol Cholesterol/HDL Ratio Lipase 28 Beta-Hydroxybutyrate/Acetoacetate 0.5 Procalcitonin 0.26 Ur Collection Type Clean Catch Urine Color Lt-Yellow Urine Clarity Clear Urine pH 6.0 Ur Specific [place] 1.039 H Urine Protein 1+ A Urine Glucose (UA) 4+ A Urine Ketones Negative Urine Blood 1+ A Urine Nitrite Negative Urine Bilirubin Negative Urine Urobilinogen (Auto) Negative Ur Leukocyte Esterase Negative Urine RBC 14 H Urine WBC < 1 Ur Squamous Epith Cells 0 Urine Bacteria None Ur Culture Indicated? Not Indicated Urine Opiates Screen Positive A Urine Fentanyl Screen Negative Ur Barbiturates Screen Negative U Amphetamin/Meth Scrn Negative U Benzodiazepines Scrn Negative U Cocaine Metab Screen Negative U Marijuana (THC) Screen Negative Ethyl Alcohol < 3.0 01/10/25 01/11/25 14:55 04:50 WBC 7.3 D RBC 4.30 L Hgb 13.3 L Hct 40.5 L MCV 94 MCH 30.9 MCHC 32.8 RDW Std Deviation 43.8 Plt Count 305 Neut % (Auto) 63 Lymph % (Auto) 26 [place] % (Auto) 10 Eos % (Auto) 0 Baso % (Auto) 1 Neut # (Auto) 4.6 Lymph # (Auto) 1.9 [place] # (Auto) 0.7 Eos # (Auto) 0.0 Baso # (Auto) 0.0 Immature Gran # (Auto) 0.01 H Absolute Nucleated RBC 0.00 Immature Gran % 0 Nucleated RBC % 0 PT INR APTT VBG pH VBG pCO2 VBG pO2 VBG O2 Sat (Amparo) VBG Base Excess Sodium 134 L 137 Potassium 4.4 D 4.6 Chloride 101 102 Carbon Dioxide 19.8 L 24.3 Anion Gap 13 11 BUN 21 25 H Creatinine 1.4 H 1.3 Estim Creat Clear Calc 61.4 66.1 eGFR 58 L > 60 BUN/Creatinine Ratio 15 19 Glucose 333 H D [address] Glu mg/dL 232 H Hemoglobin A1c 9.7 H Calculated Osmolality 284 280 Lactic Acid 1.5 Calcium 8.7 9.0 Corrected Calcium 8.7 9.2 Phosphorus 3.5 3.5 Magnesium 2.1 Total Bilirubin 0.4 AST 22 ALT 11 Alkaline Phosphatase 59 D Ammonia Troponin I Total Protein 6.7 Albumin 4.3 3.8 D Globulin 2.9 Albumin/Globulin Ratio 1.3 Triglycerides 308 H Cholesterol 141 LDL Cholesterol, Calc 52 HDL Cholesterol 27 L Cholesterol/HDL Ratio 5.2 Lipase Beta-Hydroxybutyrate/Acetoacetate Procalcitonin Ur Collection Type Urine Color Urine Clarity Urine pH Ur Specific [place] Urine Protein Urine Glucose (UA) Urine Ketones Urine Blood Urine Nitrite Urine Bilirubin Urine Urobilinogen (Auto) Ur Leukocyte Esterase Urine RBC Urine WBC Ur Squamous Epith Cells Urine Bacteria Ur Culture Indicated? Urine Opiates Screen Urine Fentanyl Screen Ur Barbiturates Screen U Amphetamin/Meth Scrn U Benzodiazepines Scrn U Cocaine Metab Screen U Marijuana (THC) Screen Ethyl Alcohol ABG Interpretation ABG results: 01/10/25 11:10 VBG pH 7.31 L VBG pCO2 44 VBG pO2 38 VBG Base Excess -5 L Quality Measures Quality Measures VTE prophylaxis (Heparin sc) Assessment & Plan Assessment Current Active Medications: Generic Name Dose Route Start Last Admin Trade Name Freq PRN Reason Stop Dose Admin Acetaminophen 650 mg 01/10/25 14:04 Acetaminophen 325 Mg Tablet PO 02/09/25 14:03 Q6H PRN Fever >101.5 or pain 1-3 Hydrocodone Bitart/Acetaminophen 1 tab 01/10/25 14:54 01/11/25 05:25 Hydrocodone/Apap 10/325 Tab PO 01/15/25 14:53 1 tab Q6HR PRN Administration Pain 4-10 Dextrose 25 ml 01/10/25 14:39 Dextrose 50%-Water Inj 50 Ml Syringe IV 02/09/25 14:38 Q15MIN PRN BG 50-70 responsive npo pt Dextrose 50 ml 01/10/25 14:39 Dextrose 50%-Water Inj 50 Ml Syringe IV 02/09/25 14:38 Q15MIN PRN BG <50 OR BG <70 & pt unresponsive Gabapentin 100 mg 01/10/25 22:00 01/11/25 05:25 Gabapentin 100 Mg Capsule PO 02/09/25 21:59 100 mg TID YOBANI Administration Glucagon 1 mg 01/10/25 14:39 Glucagon Inj 1 Mg Vial IM Q15MIN PRN BG <70, and no IV access Heparin Sodium (Porcine) 5,000 unit 01/10/25 21:00 01/11/25 09:07 Heparin Sod Inj 5000 Unit/Ml Vial SC 01/24/25 20:59 5,000 unit BID YOBANI Administration Sodium Chloride 1,000 mls @ 100 mls/hr 01/11/25 08:42 01/11/25 09:08 Ns IV 01/11/25 18:41 100 mls/hr .Q10H ONE Administration Insulin Degludec 40 unit 01/11/25 09:00 01/11/25 09:20 Insulin Degludec 5 Unit/0.05 Ml (Per 5 Units) SC 02/10/25 08:59 40 unit BID YOBANI Administration Insulin Human Regular 0 unit 01/10/25 17:30 01/11/25 07:39 Insulin Hum Regular 1 Unit/0.01 Ml (Per Unit) SC 02/09/25 17:29 2 unit ACHS YOBANI Administration Protocol Nifedipine 30 mg 01/10/25 14:43 01/11/25 09:07 Nifedipine Xl 30 Mg Tabcr PO 02/10/25 08:59 30 mg QDAY PRN Administration Take if SBP 140 or higher Ondansetron HCl 4 mg 01/10/25 14:04 Ondansetron Inj 2 Mg/Ml Inj 2 Ml IVP 02/09/25 14:03 Q6H PRN NAUSEA OR VOMITING Protocol Tizanidine HCl 2 mg 01/10/25 14:43 01/10/25 21:07 Tizanidine Hcl 2 Mg Tablet PO 02/09/25 21:59 2 mg TID PRN Administration Muscle spasm Protocol Plan Mr. Nunez is a 59-year-old male with a past medical history of T2DM, HTN, HLD, peripheral neuropathy, and carcinoid syndrome s/p resection who presents to [facility] ED on 01/10 from his PCPs clinic, Dr. Rosario, for difficulty with making comprehensible speech. The patient was admitted under observation for altered mental status and acute kidney injury. #Acute encephalopathy, intermittent #Receptive aphasia Patient has a history of altered mental status and was previously hospitalized in part due to his acute encephalopathy back in 12/26. At the time, it was thought that it was due to polypharmacy, so the dosage of the patient's tizanidine was decreased. However the patient never followed up on this, and the patient was noted to have return of his acute encephalopathy on 01/07 with new symptoms of receptive aphasia. The patient's symptoms are intermittent, and the patient was advised to come to [facility] ED by his PCP. MRI head done on 12/28 was only positive for multiple punctate foci in cerebral white matter. Suspicion for acute CVA is low. Plan: Decrease home tizanidine dose to 2 mg 3 times daily as needed Neurology consulted, appreciate recommendations EEG ordered, pending #Acute kidney injury, likely prerenal, improving Patient presented with creatinine of 1.8, baseline creatinine of 1.0. The cause is most likely prerenal secondary to poor oral intake given recent confusion. Repeat renal panel at around 1500 01/10 shows improvement after 1 L NS in the ED. Plan: Continue to monitor with daily renal panel Avoid nephrotoxic drugs, renally dose medications 1 L NS ordered 01/10 #Insulin-dependent type 2 diabetes mellitus Patient has a history of insulin-dependent type 2 diabetes mellitus. The patient takes 40 units of Levemir in the morning and 40 units at night. The patient presented with a blood glucose of 543, which is likely secondary to poor compliance with insulin over the past few days given intermittent altered mental status. The patient states that he took his insulin on the morning of 01/10, but according to the patient's , he did not. Low suspicion for DKA on admission given stable anion gap and beta hydroxybutyrate within normal range. Rx: Insulin degludec 20 units on admission Insulin degludec 30 units 01/10 in the evening Plan: Sliding scale insulin step 2 One-time dose insulin degludec 20 units 01/11 morning, one-time dose insulin degludec 60 units 01/11 in evening, will reassess insulin regimen on 01/12 Carbohydrate consistent diet #Peripheral neuropathy #?Muscle spasms Patient does have a history of peripheral neuropathy, likely secondary to history of T2DM. Patient takes home gabapentin 100 mg 3 times daily for management of his neuropathy. Patient does also take tizanidine 3 times daily, but is unclear why. Comments on medication state for muscle spasms, but that tizanidine may be contributing to the patient's encephalopathy. Plan: Resumed home gabapentin 100 mg 3 times daily Resumed patient's tizanidine at a lower dose, 2 mg 3 times daily as needed for muscle spasms #?History of carcinoid syndrome Patient does have a history of carcinoid syndrome. The patient constantly refers to his carcinoid syndrome and is unclear if the patient is aware that he has had surgery in the past to manage his carcinoid syndrome. Per chart review, the patient had carcinoid tumor resection, but patient and his stated that he has never had any surgery for this condition. Patient does not appear to have any symptoms of carcinoid syndrome at this moment except for endorse history of diarrhea recently. Patient states that he takes tizanidine for his carcinoid syndrome, however this is unclear as to why. Additionally, the patient and his both stated that his carcinoid syndrome could not be cured and could only be managed with tizanidine. Overall this does not fit the picture of carcinoid syndrome. Plan: Continue to monitor for symptoms Low-fat diet modification Patient to follow-up outpatient #Primary hypertension Patient does have a history of hypertension. In the past, the patient was prescribed lisinopril for management of his hypertension, but was instructed to discontinue taking the lisinopril as he was admitted with SHABBIR in the past. The patient was not compliant with these instructions and wanted to discuss with his PCP before changing medications, and so he has been consistent with taking lisinopril even though he was directed not to. Plan: Continue to hold ACEI given SHABBIR Per previous discharge recommendations, ordered nifedipine 30 mg daily as needed if systolic blood pressure 140 or higher #Hyperlipidemia Patient has a history of hyperlipidemia, to which he takes simvastatin 40 mg at home for management. Plan: Lipid panel ordered, resulted with high tryglycerides and low HDL Patient to follow-up outpatient DVT Prophylaxis: Heparin GI Prophylaxis: N/A Bowel: N/A Diet: Consistent carb, low fat Muniz: N/A Lines: Peripheral IV Antibiotics: N/A Code Status: FULL Reason for Hospitalization: AMS & SHABBIR Other Barriers to Discharge: EEG, neurology consult Patient plan of care was discussed with the senior resident Dr. Ni (PGY-2) and attending physician Dr. James Spicer, PGY1 Attending Provider Attestation/Addendum I attest that I was physically present for the evaluation, physical examination, lab and imaging review of the patient with the residents. I discussed the case with the residents and agree with the findings and plans of care as documented above. At bedside today, patient states he is feeling well and denies any new complaints. States that his speech and mentation is back to his baseline. Alert and oriented, able to answer questions and follow commands appropriately. Vital signs are stable except for mild hypertension, lab results are stable as well. Noted to have hyperglycemia on fingerstick glucose. We will adjust his insulin regimen. Awaiting EEG. Bhargavi Graham MD
[2025-01-11] MEDS: INSULIN LISPRO (AdmeLOG) 1 UNIT/0.01 ML UNIT SC ×2 (11:23→17:30)
--- NOTE | 2025-01-11 15:02 | RESP.EEG ---
EEG COMPLETED AND READY TO READ
--- NOTE | 2025-01-11 15:59 | PC.SS ---
SS follow up note; Stroke R/O. Patient will possibly discharge home within 2-3 days.
--- NOTE | 2025-01-11 16:29 | ESPR_ITS ---
Documentation for date of: 01/11/25 Subjective Subjective Interval history: This patient is a 59-year-old male with past medical history of type 2 diabetes, hypertension, hyperlipidemia, neuropathy and carcinoid syndrome presented to the ED on 01/10/2025 from his PCP office named Dr. Rosario with difficulty with making comprehensible speech. Patient endorsed vomiting and loose stools from past couple of days. He also endorsed abdominal discomfort mainly generalized. Per primary team, patient's has been concerned for changes in patient's behavior that were noticed on previous admission on 12/26. He was seen by his doing art things including trending down TV volume with his phone, using spoon as his TV remote and defecating on himself twice and not caring about it. In addition to these odd behaviors, patient was periodically having episodes of incomprehensible speech. Patient was trying to get a referral to neurology for follow-up from his PCP however due to his continued altered behavior patient was sent to the ED. Of note, patient was admitted on 12/22/2024 with progressive fatigue, dizziness and confusion lasting for a month. He was found to have orthostatic hypotension likely attributed to polypharmacy leading to acute encephalopathy. MRI at that time only showed multiple punctate foci in central white matter. At that time, acute stroke was not suspected. Medications were optimized before discharge with discontinuation of lisinopril and benazepril however patient was still taking his medications like previously. In the ED, patient was tachycardic 101 with blood pressure 130/84. Labs revealed WBC 5.1, hemoglobin 14.7, platelet count 318. INR 1.0. VBG is normal Chemistry panel revealed sodium of 129-> 134, chloride 94-> 101, bicarb 19.8. Creatinine 1.8--> 1.4, glucose 543--> 333, lactic acid 2.5--> 1.5. Additionally, nonsignificant labs of note are troponin less than 0.020, beta- hydroxybutyrate 0.5, and procalcitonin 0.26. Serum ammonia less than 10. Lipase was negative. Urinalysis showed proteins, glucose and blood. U tox positive for opiates. CT abdomen/pelvis shows no acute findings. CT brain showed no acute changes. Chest x-ray shows no pneumonia or pulmonary edema, prominent osteopenia with bilateral old rib fractures. ED gave 1 L NS and 7 units of regular insulin. PMH: As above PSH: Spinal fusion surgery x 2, left leg surgery Allergies: No known drug allergies SH: Denies drinking alcohol, smoking cigarettes or vape. No history of illicit drug use. Family history: Mother with cancer and father has renal failure. Daughter has seizures history Home medications:Nifedipine 30 mg as needed if systolic above 140, tamsulosin 0.4 mg, simvastatin 40 mg, gabapentin 100 mg 3 times daily, tizanidine 4 mg 3 times daily, [place] 10/325 every 6 hourly as needed, insulin 80 units daily, buspirone 15 mg 3 times daily Recommended to continue half dose of tizanidine for back pain for pain management, hold off on benzodiazepines and perform EEG to evaluate for seizure- like activity. No need of repeat MRI at this point. Need Good control of blood sugars with insulin therapy. Anticipate improvement of SHABBIR with IV fluid resuscitation. 01/11/2025: Patient was seen and examined at the bedside. Patient's was also present at bedside and she reported that patient seems to be still confused as yesterday. EEG was normal. Labs revealed A1c 9.7 and hemoglobin stable at 13.3. Will need optimization of blood sugar/diabetes. Confusion most likely attributed to hypoglycemia. No need of repeat MRI. Exam Vital Signs Temp Pulse Resp BP Pulse Ox O2 Del Method 97.7 F 85 16 161/95 H 96 Room Air 01/11/25 12:00 01/11/25 13:19 01/11/25 13:19 01/11/25 12:00 01/11/25 12:00 01/11/25 12:00 Narrative Exam GENERAL APPEARANCE: AxOx4, generally well-appearing male in no acute distress. HEENT: NC, AT. MMM. EOMI, clear conjunctiva, oropharynx clear. NECK: Supple without lymphadenopathy. No stiffness or restricted ROM. HEART: Sinus tachycardia with regular rhythm, normal S1/S2, no m/r/g LUNGS: CTAB, moving air well. No crackles or wheezes are heard. ABDOMEN: Soft, mild diffuse abdominal tenderness, nondistended with good bowel sounds heard. BACK: No CVAT, no obvious deformity. EXTREMITIES: Without cyanosis, clubbing or edema. NEUROLOGICAL: Alert, awake and oriented x3. Cranial nerves: II through XII grossly intact. No nystagmus noted. Speech and language: Normal with receptive aphasia. Motor system: Tone and bulk: Normal: Strength: 5 out of 5 in all 4 extremities; No pronator drift noted. Deep tendon reflexes: 2+ bilaterally symmetrical. Plantar reflex: Downgoing bilaterally. Sensory system: Intact to all modalities of sensation bilaterally. Coordination: Intact to [id number] and [id number] test bilaterally. No ataxia, no dysmetria, or dysdiadochokinesia noted. No intention tremors noted. Gait: Normal. Toe, heel, tandem walk all are normal. Romberg: Negative. No signs of meningeal irritation noted. Skin: Warm and dry without any rash. Psych: Receptive aphasia however not in anxiety Objective Labs 01/11/25 04:50 01/11/25 04:50 Labs: Laboratory Results - last 24 hr 01/11/25 04:50 WBC 7.3 D RBC 4.30 L Hgb 13.3 L Hct 40.5 L MCV 94 MCH 30.9 MCHC 32.8 RDW Std Deviation 43.8 Plt Count 305 Neut % (Auto) 63 Lymph % (Auto) 26 [place] % (Auto) 10 Eos % (Auto) 0 Baso % (Auto) 1 Neut # (Auto) 4.6 Lymph # (Auto) 1.9 [place] # (Auto) 0.7 Eos # (Auto) 0.0 Baso # (Auto) 0.0 Immature Gran # (Auto) 0.01 H Absolute Nucleated RBC 0.00 Immature Gran % 0 Nucleated RBC % 0 Sodium 137 Potassium 4.6 Chloride 102 Carbon Dioxide 24.3 Anion Gap 11 BUN 25 H Creatinine 1.3 Estim Creat Clear Calc 66.1 eGFR > 60 BUN/Creatinine Ratio 19 [address] Glu mg/dL 232 H Hemoglobin A1c 9.7 H Calculated Osmolality 280 Calcium 9.0 Corrected Calcium 9.2 Phosphorus 3.5 Magnesium 2.1 Total Bilirubin 0.4 AST 22 ALT 11 Alkaline Phosphatase 59 D Total Protein 6.7 Albumin 3.8 D Globulin 2.9 Albumin/Globulin Ratio 1.3 Triglycerides 308 H Cholesterol 141 LDL Cholesterol, Calc 52 HDL Cholesterol 27 L Cholesterol/HDL Ratio 5.2 ABG Interpretation ABG results: 01/10/25 11:10 VBG pH 7.31 L VBG pCO2 44 VBG pO2 38 VBG Base Excess -5 L Quality Measures Quality Measures VTE prophylaxis (Heparin sc) Assessment & Plan Assessment Current Active Medications: Generic Name Dose Route Start Last Admin Trade Name Young PRN Reason Stop Dose Admin Acetaminophen 650 mg 01/10/25 14:04 Acetaminophen 325 Mg Tablet PO 02/09/25 14:03 Q6H PRN Fever >101.5 or pain 1-3 Hydrocodone Bitart/Acetaminophen 1 tab 01/10/25 14:54 01/11/25 11:25 Hydrocodone/Apap 10/325 Tab PO 01/15/25 14:53 1 tab Q6HR PRN Administration Pain 4-10 Dextrose 25 ml 01/10/25 14:39 Dextrose 50%-Water Inj 50 Ml Syringe IV 02/09/25 14:38 Q15MIN PRN BG 50-70 responsive npo pt Dextrose 50 ml 01/10/25 14:39 Dextrose 50%-Water Inj 50 Ml Syringe IV 02/09/25 14:38 Q15MIN PRN BG <50 OR BG <70 & pt unresponsive Gabapentin 100 mg 01/10/25 22:00 01/11/25 14:35 Gabapentin 100 Mg Capsule PO 02/09/25 21:59 100 mg TID YOBANI Administration Glucagon 1 mg 01/10/25 14:39 Glucagon Inj 1 Mg Vial IM Q15MIN PRN BG <70, and no IV access Heparin Sodium (Porcine) 5,000 unit 01/10/25 21:00 01/11/25 09:07 Heparin Sod Inj 5000 Unit/Ml Vial SC 01/24/25 20:59 5,000 unit BID YOBANI Administration Sodium Chloride 1,000 mls @ 100 mls/hr 01/11/25 08:42 01/11/25 09:08 Ns IV 01/11/25 18:41 100 mls/hr .Q10H ONE Administration Insulin Degludec 60 unit 01/12/25 21:00 Insulin Degludec 5 Unit/0.05 Ml (Per 5 Units) SC 02/11/25 20:59 HS YOBANI Insulin Degludec 20 unit 01/11/25 21:00 Insulin Degludec 5 Unit/0.05 Ml (Per 5 Units) SC 01/11/25 21:01 X1 ONE Insulin Human Lispro 0 unit 01/11/25 11:30 01/11/25 11:23 Insulin Lispro (Admelog) 1 Unit/0.01 Ml Unit SC 02/10/25 11:29 2 unit AC YOBANI Administration Protocol Nifedipine 30 mg 01/10/25 14:43 01/11/25 09:07 Nifedipine Xl 30 Mg Tabcr PO 02/10/25 08:59 30 mg QDAY PRN Administration Take if SBP 140 or higher Ondansetron HCl 4 mg 01/10/25 14:04 Ondansetron Inj 2 Mg/Ml Inj 2 Ml IVP 02/09/25 14:03 Q6H PRN NAUSEA OR VOMITING Protocol Tizanidine HCl 2 mg 01/10/25 14:43 01/10/25 21:07 Tizanidine Hcl 2 Mg Tablet PO 02/09/25 21:59 2 mg TID PRN Administration Muscle spasm Protocol Plan This patient is a 59-year-old male with a past medical history of T2DM, HTN, HLD, peripheral neuropathy, and carcinoid syndrome s/p resection who presents to [facility] ED on 01/10 from his PCPs clinic, Dr. Rosario, for difficulty with making comprehensible speech. The patient was admitted under observation for altered mental status and acute kidney injury. Recommended EEG from neurology standpoint. #Acute encephalopathy likely multifactorial/metabolic #?Receptive aphasia DDx: Polypharmacy due to muscle relaxants, possible seizures, anxiety, advancing dementia, uncontrolled diabetes Patient has a history of altered mental status and was previously hospitalized in part due to his acute encephalopathy back in 12/26. At the time, it was thought that it was due to polypharmacy, so the dosage of the patient's tizanidine was decreased. However the patient never followed up on this, and the patient was noted to have return of his acute encephalopathy on 01/07 with new symptoms of receptive aphasia. The patient's symptoms are intermittent, and the patient was advised to come to [facility] ED by his PCP. MRI head done on 12/28 was only positive for multiple punctate foci in cerebral white matter. Suspicion for acute CVA is low. Head CT showed no acute changes. Patient presented with elevated blood sugars around 300. Vitals were stable. Patient was given insulin 7 units IV x 1. Serum ammonia less than 10. U tox was positive for opiates. MRI deferred due low suspicion for stroke Plan: EEG was normal Decrease home tizanidine dose to 2 mg 3 times daily as needed Recommended to hold off benzos Confusion might be attributed to hypoglycemia and recommended to manage blood sugars with insulin therapy #Peripheral neuropathy #?Muscle spasms Patient does have a history of peripheral neuropathy, likely secondary to history of T2DM. Patient takes home gabapentin 100 mg 3 times daily for management of his neuropathy. He takes tizanidine 3 times a day daily. Plan: Continue gabapentin 100 mg 3 times daily Continue tizanidine at a lower dose, 2 mg 3 times daily as needed for muscle spasms #SHABBIR, likely prerenal, improving #Lactic acidosis, resolved #Uncontrolled insulin-dependent type 2 diabetes mellitus #History of carcinoid syndrome status post resection #HTN #Hyperlipidemia Rest of the management as per primary care team. Patient was discussed with neurologist, Dr Flako Cabrera MD, PGY 3
[2025-01-11] MEDS: INSULIN DEGLUDEC 5 UNIT/0.05 ML (PER 5 UNITS) 20 UNIT SC (21:12)
[2025-01-12] VITALS: BP 142/78; PULSE 93; RESP 18; TEMP 36.4; O2SAT 91
[2025-01-12 04:00] VITALS: BP 127/75; PULSE 90; RESP 15; TEMP 36.7; O2SAT 93
[2025-01-12] MEDS: GABAPENTIN 100 MG CAPSULE PO ×2 (05:24→14:21)
[2025-01-12 05:45] LABS: Basophils # (Auto) 0.0 Thou/mm3 (0.0-0.2); Basophils % (Auto) 0 % (0-2.5); Eosinophils # (Auto) 0.0 Thou/mm3 (0.0-0.5); Eosinophils % (Auto) 0 % (0-10); Hematocrit 37.9 % (41.0-53.0); Hemoglobin 12.9 g/dL (13.5-16.0); Immature Granulocytes Auto 0.02 Thou/mm3 (0.00-0.00); Lymphocytes # (Auto) 2.4 Thou/mm3 (1.0-4.8); Lymphocytes % (Auto) 26 % (10-50); Mean Corpuscular HGB Conc 34.0 g/dl (31.0-37.0); Mean Corpuscular Hemoglobin 31.7 pg (25.0-35.0); Mean Corpuscular Volume 93 fL (80-100); Monocytes # (Auto) 0.9 Thou/mm3 (0.0-0.8); Monocytes % (Auto) 9 % (0-12); Neutrophils # (Auto) 5.9 Thou/mm3 (1.8-7.7); Neutrophils % (Auto) 64 % (37-80); Nucleated Red Blood Cell # 0.00 Thou/mm3 (0.00-0.00); Nucleated Red Blood Cell % 0 /100 WBC (0); Platelet Count 306 Thou/mm3 (140-440); RDW Standard Deviation 43.0 fL (35.1-43.9); Red Blood Count 4.07 Miln/mm3 (4.50-5.90); White Blood Count 9.3 Thou/mm3 (3.8-10.6)
[2025-01-12 06:20] LABS: Alanine Aminotransferase 8 U/L (10-49); Albumin, Serum 3.8 gm/dL (3.5-5.0); Albumin/Globulin Ratio 1.5 (1.2-2.2); Alkaline Phosphatase 56 U/L (46-116); Anion Gap 10 (7-16); Aspartate Amino Transferase 17 U/L (0-34); BUN/Creatinine Ratio 17 Ratio (12-20); Bilirubin,Total 0.5 mg/dL (0.3-1.2); Blood Urea Nitrogen 15 mg/dL (9-23); Calcium 8.7 mg/dL (8.3-10.6); Calcium (Corrected) 8.9 mg/dL (8.5-10.1); Carbon Dioxide 21.6 mMol/L (20.0-31.0); Chloride 104 mMol/L (98-107); Creatinine (Component) 0.9 mg/dL (0.6-1.3); Estimated Creatinine Clearance 95.5 mL/min (>60); Globulin 2.6 gm/dL (2.3-3.5); Glucose 89 mg/dL (74-106); Magnesium 2.1 mg/dL (1.6-2.6); Osmolality,Calculated 271 (275-295); Phosphorous 3.2 mg/dL (2.4-5.1); Potassium 3.6 mMol/L (3.4-5.1); Sodium 136 mMol/L (136-145); Total Protein 6.4 gm/dL (5.7-8.2); eGFR > 60 See Note
[2025-01-12 08:00] VITALS: BP 130/84; PULSE 94; RESP 18; TEMP 35.8; O2SAT 93
[2025-01-12] MEDS: HEPARIN SOD INJ 5000 UNIT/ML VIAL SC (09:22)
[2025-01-12 10:37] VITALS: PULSE 91; RESP 16; RESP 94
[2025-01-12] MEDS: INSULIN LISPRO (AdmeLOG) 1 UNIT/0.01 ML UNIT SC (11:43)
[2025-01-12 12:10] VITALS: BP 122/76; PULSE 92; RESP 18; TEMP 35.6; O2SAT 96
[2025-01-12 12:26] VITALS: BMI 29.5
--- NOTE | 2025-01-12 12:36 | PC.SS ---
Rounding: KANIKA plan home today
--- NOTE | 2025-01-12 13:37 | PD.RESDS ---
Planned Discharge Date 01/12/25 DS: Providers Provider Date of admission: 01/11/25 14:03 Primary care physician: Armin Rosario MD Admitting Provider: Shawn Ramirez MD Attending Provider on Admission: Shawn Ramirez MD Consults: 01/10/25 14:32 Consult to Neurology / Tele-Neurology Routine Comment: Episodic AMS, receptive aphasia Consulting Provider: Alexander Arriola 01/12/25 08:14 Referral Registered Dietitian Routine Comment: Attending Provider on DC: Bhargavi Graham MD Discharging Provider: Shine Spicer DO Anticipated date of discharge: 01/12/25 DS: Diagnosis Problem List Completed Was Problem List Reviewed/Reconciled?: Yes Hospital Course Hospital Course Hospital course: Reason for hospitalization: SHABBIR and acute encephalopathy Summary: This is a 59-year-old male with a past medical history of T2DM, hypertension, hyperlipidemia, peripheral neuropathy, and supposed carcinoid syndrome who presented at [facility] ED on 01/10 from his PCP clinic due to difficulty with making comprehensible speech. The patient was admitted for acute encephalopathy and acute kidney injury. The patient was noted to have odd behaviors that started on 01/07, but has been noted to occur over the past month has these odd behaviors where what brought him into the hospital on 12/26. It was thought that the patient's acute encephalopathy at that time was due to polypharmacy, and patient was advised to decrease his tizanidine use, but was not compliant. According to the patient's , the patient had episodes where he would try to turn on the TV volume with his phone as a remote, and then use a spoon as his phone, and had had an episode of bowel incontinence but the had to clean up. The patient denies any memory of these events except for the episode of bowel incontinence, for which he was very embarrassed by. What is new about these episodes compared to what brought him in previously is that he would also have episodes of uncomfortable speech. According to the , individual words make sense, but the context did not make any sense. On 01/10, the patient went to his PCP to follow-up on his previous hospitalization and to schedule a referral to outpatient neurology, but due to concerns of his speech, the patient was advised to seek care at [facility] ED. In the ED, the patient was noted to have significantly elevated glucose of 543 without other signs of DKA. This is likely secondary to the patient forgetting to take his morning insulin given his confusion over the past few days. In addition, patient was found to have creatinine of 1.8, suggesting SHABBIR. From the patient's previous visit, neurology was consulted and recommended an MRI head, which showed multiple punctate foci in the cerebral white matter, and recommended follow-up EEG if symptoms were to continue. As the patient return to the hospital with similar symptoms, EEG was ordered and neurology was reconsulted onto this case. During the hospitalization, the patient not have his BuSpar scheduled and only received half of his usual tizanidine dose. The patient was noted to have no episodes of confusion and according to the , appeared back to baseline. EEG was completed on 01/11, which was negative for acute findings. Neurology stated that confusion may be linked to the patient's polypharmacy and difficulty with blood glucose control. On 01/12, the patient had stable vitals and stable labs. The patient is medically cleared to be discharged back home with recommendations of decreasing BuSpar usage and tizanidine usage and to follow-up with outpatient neurology. Discharge Recommendations: - Follow up with PCP within 1 week of discharge - Continue rest of medications as previously prescribed - Return to the ED or call EMS if symptoms return and/or worsen - Please decrease tizanidine to 2 mg three times daily as needed for abdominal spasm - Please avoid using buspirone excessively as that may be contributing to episodes of altered mentation - Follow up with outpatient neurology in 2 weeks of discharge If you don't have a PCP, you can make an appointment at the [facility]: [address] [facility] [address] [place] [address] Hospital Diagnoses: #Acute encephalopathy, intermittent #Receptive aphasia, intermittent #Acute kidney injury, likely prerenal #Insulin-dependent type 2 diabetes mellitus #Peripheral neuropathy #Abdominal muscle spasms #?History of carcinoid syndrome #Primary hypertension #Hyperlipidemia Patient plan of care was discussed with attending physician Dr. Santos Spicer, PGY-1 Status at Discharge Functional status at discharge: independent ambulation Overall status at discharge: patient is back to baseline Time Spent with Patient Time attestation: Total time spent providing and/or coordinating discharge services: 32 min Time spent: Greater than 30 minutes Exam Vital Signs Temp Pulse Resp BP Pulse Ox O2 Del Method 96.4 F L 91 16 130/84 93 L Room Air 01/12/25 08:00 01/12/25 10:37 01/12/25 10:37 01/12/25 08:00 01/12/25 08:00 01/12/25 08:00 Narrative Exam Physical Exam: General: Alert, no acute distress. Skin: Warm, dry, intact. Head: Normocephalic, atraumatic. Eye: Normal conjunctiva, PERRL. Cardiovascular: Regular rate and rhythm, no murmur, +S1/S2. Respiratory: Lungs are clear to auscultation, respirations unlabored, no crackles, no wheezing. Gastrointestinal: Soft, diffusely tender to palpation, non-distended. No guarding or rebound tenderness. Extremities: No edema, no cyanosis, no clubbing. 2+ radial pulse bilaterally, 2+ pedal pulse bilaterally. Neuro: No focal deficits observed. Conversant, moving all extremities. No overt cerebellar signs/incoordination. Psychiatric: Cooperative, appropriate affect. Discharge Plan Plan Patient Disposition: HOME (Self Care) Patient condition on transfer: Stable Prescriptions/Referrals Prescriptions/Med Rec: New (DME) FreeStyle Tiki 3 Mobile Misc See Rx Instructions .Route Qty: 1 0RF Rx Instructions: As directed (DME) FreeStyle Tiki 3 Sensor Device See Rx Instructions .Route Qty: 2 0RF Rx Instructions: As directed Continued simvastatin 40 mg tablet 40 mg PO QDAY gabapentin 100 mg capsule 100 mg PO TID hydrocodone-acetaminophen 10-325 mg tablet 1 tab PO Q6HR Patient Comments: PRN Levemir FlexTouch U100 Insulin 100 unit/mL (3 mL) Insulin Pen 40 unit SUBCUT BID buspirone 15 mg Tablet 15 mg PO TID Patient Comments: take one tab q8 for nerves nifedipine 30 mg Tablet Extended Release 24hr 30 mg PO QDAY PRN (Reason: take if systolic 140 or more) Qty: 7 0RF tamsulosin 0.4 mg capsule 0.4 mg PO DAILY Changed tizanidine 4 mg Capsule 2 mg PO TID PRN (Reason: abdominal spasm) 30 Days Qty: 45 0RF Referrals: Armin Rosario MD [Primary Care Provider, Family Practice] Patient/Caregiver Discharge Instructions Education Materials: CGM, Diabetes Exercise Get Started, Diabetes: Meal Planning Print Language: Icelandic Stand Alone Forms: Catherine Award Info., Patient Portal Info Letter Discharge Order Discharge Orders: Discharge (Routine); Ordered 01/12/25 Ordered By: Alfie Ni Quality Discharge Quality Measures VTE prophylaxis MD Attestestation MD Attestation I attest that I was physically present for the evaluation, physical examination, lab and imaging review of the patient with the residents. I discussed the case with the residents and agree with the findings and plans of care as documented above. Bhargavi Graham MD
[2025-01-12 15:20] VITALS: BP 143/91; PULSE 88; RESP 18; TEMP 36.3; O2SAT 94
--- NOTE | 2025-01-12 15:48 | PD.RESPRO ---
Documentation for date of: 01/12/25 Subjective Subjective Interval history: Patient was seen and examined at the bedside. No acute overnight events were reported. Patient was doing well and had no new neurological symptoms. Patient stable for discharge from neurology standpoint. Exam Vital Signs Temp Pulse Resp BP Pulse Ox O2 Del Method 96.0 F L 92 18 122/76 96 Room Air 01/12/25 12:10 01/12/25 12:10 01/12/25 12:10 01/12/25 12:10 01/12/25 12:10 01/12/25 12:10 Narrative Exam GENERAL APPEARANCE: AxOx4, generally well-appearing male in no acute distress. HEENT: NC, AT. MMM. EOMI, clear conjunctiva, oropharynx clear. NECK: Supple without lymphadenopathy. No stiffness or restricted ROM. HEART: Sinus tachycardia with regular rhythm, normal S1/S2, no m/r/g LUNGS: CTAB, moving air well. No crackles or wheezes are heard. ABDOMEN: Soft, mild diffuse abdominal tenderness, nondistended with good bowel sounds heard. BACK: No CVAT, no obvious deformity. EXTREMITIES: Without cyanosis, clubbing or edema. NEUROLOGICAL: Alert, awake and oriented x3. Cranial nerves: II through XII grossly intact. No nystagmus noted. Speech and language: Normal with receptive aphasia. Motor system: Tone and bulk: Normal: Strength: 5 out of 5 in all 4 extremities; No pronator drift noted. Deep tendon reflexes: 2+ bilaterally symmetrical. Plantar reflex: Downgoing bilaterally. Sensory system: Intact to all modalities of sensation bilaterally. Coordination: Intact to [id number] and keey-cfsu-utrg test bilaterally. No ataxia, no dysmetria, or dysdiadochokinesia noted. No intention tremors noted. Gait: Normal. Toe, heel, tandem walk all are normal. Romberg: Negative. No signs of meningeal irritation noted. Skin: Warm and dry without any rash. Psych: Appropriate mood and affect Objective Labs 01/12/25 04:12 01/12/25 04:12 Labs: Laboratory Results - last 24 hr 01/12/25 04:12 WBC 9.3 RBC 4.07 L Hgb 12.9 L Hct 37.9 L MCV 93 MCH 31.7 MCHC 34.0 RDW Std Deviation 43.0 Plt Count 306 Neut % (Auto) 64 Lymph % (Auto) 26 [place] % (Auto) 9 Eos % (Auto) 0 Baso % (Auto) 0 Neut # (Auto) 5.9 Lymph # (Auto) 2.4 [place] # (Auto) 0.9 H Eos # (Auto) 0.0 Baso # (Auto) 0.0 Immature Gran # (Auto) 0.02 H Absolute Nucleated RBC 0.00 Immature Gran % 0 Nucleated RBC % 0 Sodium 136 Potassium 3.6 D Chloride 104 Carbon Dioxide 21.6 Anion Gap 10 BUN 15 Creatinine 0.9 Estim Creat Clear Calc 95.5 eGFR > 60 BUN/Creatinine Ratio 17 Glucose 89 D Calculated Osmolality 271 L Calcium 8.7 Corrected Calcium 8.9 Phosphorus 3.2 Magnesium 2.1 Total Bilirubin 0.5 AST 17 ALT 8 L Alkaline Phosphatase 56 Total Protein 6.4 Albumin 3.8 Globulin 2.6 Albumin/Globulin Ratio 1.5 ABG Interpretation ABG results: 01/10/25 11:10 VBG pH 7.31 L VBG pCO2 44 VBG pO2 38 VBG Base Excess -5 L Quality Measures Quality Measures VTE prophylaxis (Heparin sc) Assessment & Plan Assessment Current Active Medications: Generic Name Dose Route Start Last Admin Trade Name Freq PRN Reason Stop Dose Admin Acetaminophen 650 mg 01/10/25 14:04 Acetaminophen 325 Mg Tablet PO 02/09/25 14:03 Q6H PRN Fever >101.5 or pain 1-3 Hydrocodone Bitart/Acetaminophen 1 tab 01/10/25 14:54 01/12/25 11:35 Hydrocodone/Apap 10/325 Tab PO 01/15/25 14:53 1 tab Q6HR PRN Administration Pain 4-10 Dextrose 25 ml 01/10/25 14:39 Dextrose 50%-Water Inj 50 Ml Syringe IV 02/09/25 14:38 Q15MIN PRN BG 50-70 responsive npo pt Dextrose 50 ml 01/10/25 14:39 Dextrose 50%-Water Inj 50 Ml Syringe IV 02/09/25 14:38 Q15MIN PRN BG <50 OR BG <70 & pt unresponsive Gabapentin 100 mg 01/10/25 22:00 01/12/25 14:21 Gabapentin 100 Mg Capsule PO 02/09/25 21:59 100 mg TID YOBANI Administration Glucagon 1 mg 01/10/25 14:39 Glucagon Inj 1 Mg Vial IM Q15MIN PRN BG <70, and no IV access Heparin Sodium (Porcine) 5,000 unit 01/10/25 21:00 01/12/25 09:22 Heparin Sod Inj 5000 Unit/Ml Vial SC 01/24/25 20:59 5,000 unit BID YOBANI Administration Insulin Degludec 60 unit 01/12/25 21:00 Insulin Degludec 5 Unit/0.05 Ml (Per 5 Units) SC 02/11/25 20:59 HS YOBANI Insulin Human Lispro 0 unit 01/11/25 11:30 01/12/25 11:43 Insulin Lispro (Admelog) 1 Unit/0.01 Ml Unit SC 02/10/25 11:29 1 unit AC YOBANI Administration Protocol Nifedipine 30 mg 01/10/25 14:43 01/11/25 09:07 Nifedipine Xl 30 Mg Tabcr PO 02/10/25 08:59 30 mg QDAY PRN Administration Take if SBP 140 or higher Ondansetron HCl 4 mg 01/10/25 14:04 Ondansetron Inj 2 Mg/Ml Inj 2 Ml IVP 02/09/25 14:03 Q6H PRN NAUSEA OR VOMITING Protocol Tizanidine HCl 2 mg 01/10/25 14:43 01/10/25 21:07 Tizanidine Hcl 2 Mg Tablet PO 02/09/25 21:59 2 mg TID PRN Administration Muscle spasm Protocol Plan This patient is a 59-year-old male with a past medical history of T2DM, HTN, HLD, peripheral neuropathy, and carcinoid syndrome s/p resection who presents to [facility] ED on 01/10 from his PCPs clinic, Dr. Rosario, for difficulty with making comprehensible speech. The patient was admitted under observation for altered mental status and acute kidney injury. Recommended EEG from neurology standpoint. #Acute encephalopathy likely multifactorial/metabolic, resolved DDx: Polypharmacy due to muscle relaxants, possible seizures, anxiety, advancing dementia, uncontrolled diabetes Patient has a history of altered mental status and was previously hospitalized in part due to his acute encephalopathy back in 12/26. At the time, it was thought that it was due to polypharmacy, so the dosage of the patient's tizanidine was decreased. However the patient never followed up on this, and the patient was noted to have return of his acute encephalopathy on 01/07 with new symptoms of receptive aphasia. The patient's symptoms are intermittent, and the patient was advised to come to [facility] ED by his PCP. MRI head done on 12/28 was only positive for multiple punctate foci in cerebral white matter. Suspicion for acute CVA is low. Head CT showed no acute changes. Patient presented with elevated blood sugars around 300. Vitals were stable. Patient was given insulin 7 units IV x 1. Serum ammonia less than 10. U tox was positive for opiates. MRI deferred due low suspicion for stroke EEG was normal Plan: Patient can be safely discharged from neurology standpoint. Will sign off Decrease home tizanidine dose to 2 mg 3 times daily as needed Confusion might be attributed to hypoglycemia and recommended to manage blood sugars with insulin therapy #Peripheral neuropathy #?Muscle spasms Patient does have a history of peripheral neuropathy, likely secondary to history of T2DM. Patient takes home gabapentin 100 mg 3 times daily for management of his neuropathy. He takes tizanidine 3 times a day daily. Plan: Continue gabapentin 100 mg 3 times daily Continue tizanidine at a lower dose, 2 mg 3 times daily as needed for muscle spasms #SHABBIR, likely prerenal, improving #Lactic acidosis, resolved #Uncontrolled insulin-dependent type 2 diabetes mellitus #History of carcinoid syndrome status post resection #HTN #Hyperlipidemia Rest of the management as per primary care team. Patient can be safely discharged neuro standpoint. Patient was discussed with neurologist, Dr Flako Cabrera MD, PGY 3
== END 2025-01-12 17:00 | disposition home or self-care (01) | DRG 682 ==
LOC: SERX 10:38 → SERHOLD 14:21 → S3NX 17:36
PROVIDERS: Nurse Practitioner Family; Admitting Provider Internal Medicine; Emergency Provider Emergency Medicine; PCP Family Medicine; Visit Provider Internal Medicine
DX: N17.9 Acute kidney failure, unspecified (principal); G92.8 Other toxic encephalopathy; E34.00 Carcinoid syndrome, unspecified; R47.01 Aphasia; E87.20 Acidosis, unspecified; E11.65 Type 2 diabetes mellitus with hyperglycemia; E11.42 Type 2 diabetes mellitus with diabetic polyneuropathy; I10 Essential (primary) hypertension; E78.5 Hyperlipidemia, unspecified; F41.9 Anxiety disorder, unspecified; M62.838 Other muscle spasm; F03.90 Unspecified dementia, unspecified severity, without behavioral disturbance, psychotic disturbance, mood disturbance, and anxiety; I95.1 Orthostatic hypotension; N40.0 Benign prostatic hyperplasia without lower urinary tract symptoms; Z79.4 Long term (current) use of insulin; Z79.899 Other long term (current) drug therapy; Z98.1 Arthrodesis status; T42.8X5A Adverse effect of antiparkinsonism drugs and other central muscle-tone depressants, initial encounter
CPT/HCPCS: 36415; 70450; 71045; 74176; 80053; 80061; 80069; 80307; 80320; 81001; 82010; 82140; 82803; 83036; 83605; 83690; 83735; 84100; 84145; 84484; 85025; 85610; 85730; 87040; 87081; 93005; 95816; 96361; 96372; 96374; 96375; 99285; G0378; J1644; J1815; J2270; J2405; J7030; A9270; G0480

== ENCOUNTER → 2025-02-01 | Outpatient (BNVA) | payer MEDICARE, MEDICAID, SELFPAY | END | disposition home or self-care (01) | PROVIDERS: PCP Family Medicine; Referring Provider Family Medicine; Visit Provider Urology | DX: N40.0 Benign prostatic hyperplasia without lower urinary tract symptoms (principal); E11.42 Type 2 diabetes mellitus with diabetic polyneuropathy; R03.1 Nonspecific low blood-pressure reading; Z80.0 Family history of malignant neoplasm of digestive organs; N17.9 Acute kidney failure, unspecified; K21.9 Gastro-esophageal reflux disease without esophagitis | CPT/HCPCS: 81003; 99212; G0463 ==

== ENCOUNTER → 2025-04-26 | Outpatient (CLI) | payer MEDICARE, MEDICAID, SELFPAY ==
--- NOTE | 2025-04-26 09:52 | XR_ITS ---
EXAMINATION: PA lateral chest 2 views TECHNIQUE: Upright PA lateral chest 2 views Date and time: April 26, 2025, 1031 hours, comparison 01/10/2025 INDICATIONS: Coughing beginning 1 month ago FINDINGS: Normal heart size Lungs are clear. Pleural thickening stable Old rib fractures No interval pneumonia or pulmonary edema IMPRESSION: No interval pneumonia or pulmonary edema
== END | disposition home or self-care (01) ==
LOC: CDIM 09:38
PROVIDERS: PCP Family Medicine; Referring Provider Family Medicine; Visit Provider Family Medicine
DX: R05.9 Cough, unspecified (principal)
CPT/HCPCS: 71046